=== PATIENT | male | born 1960 | race Caucasian/White ===

== ENCOUNTER 2022-07-27 16:56 | Emergency (ER) | payer OTHER, SELFPAY ==
[2022-07-27 16:57] VITALS: BP 131/116; PULSE 70; RESP 18; TEMP 35.8; O2SAT 99; BMI 40.5
[2022-07-27 17:10] VITALS: BP 131/116; PULSE 70; RESP 18; TEMP 35.8; O2SAT 99
--- NOTE | 2022-07-27 17:20 | EX.ED.DYSGE1 ---
HPI History of Present Illness Chief Complaint: General Illness Informant: patient Narrative Narrative: 61-year-old male felt compelled to have a bowel movement. He called EMS and had a bowel movement in his pants and now feels fine. Patient associates nausea and vomiting. No fevers. No abdominal distention. The patient states that he feels a spinning sensation whenever he opens his eyes. If he keeps his eyes closed its better. He notes nausea of the spinning. He denies any lightheadedness. No palpitations. PFSH PFS Medical History HTN (hypertension) Home Medications metoprolol succinate 100 mg tablet,extended release 24 hr tablet PO 11/18/21 [History Last Taken Unknown] Allergy/AdvReac Type Severity Reaction Status Date / Time No Known Allergies Allergy Verified 07/27/22 17:10 Family History Other COPD (chronic obstructive pulmonary disease) Diabetes Heart disease Surgical History Hx of arthroscopy of left knee Social History Smoking Status: Never smoker alcohol intake: never substance use type: does not use ROS ROS ED Constitutional Constitutional ED: Denies chills or weight loss Eyes Eyes: Denies change in vision or diplopia ENT ENT ED: Denies ear pain, rhinorrhea or sore throat Cardiovascular Cardiovascular: Denies chest pain, orthopnea, palpitations or racing heartbeat Respiratory/Chest Respiratory/Chest: Denies cough, dyspnea or orthopnea Gastrointestinal Gastrointestinal: Reports constipation; Denies abdominal pain, diarrhea, nausea or vomiting Genitourinary Genitourinary ED: Denies dysuria, hematuria or urinary frequency Musculoskeletal Musculoskeletal: Denies arthralgias or myalgias Integumentary Denies abscess or rash Neurologic Neurologic: Denies headache(s) or weakness Psychiatric Psychiatric: Denies anxiety, depression, suicidal ideation or suicidal thoughts Endocrine Endocrinology: Denies polydipsia, polyphagia or polyuria Allergic/Immunologic Allergic/Immunologic ED: Denies mouth swelling, tongue swelling or urticaria EXAM Physical Exam Const Vital Signs: 07/27/22 16:57 07/27/22 17:10 07/27/22 17:24 Temperature 96.5 F L 96.5 F L Temperature Source Temporal Temporal Pulse Rate 70 70 Respiratory Rate 18 18 Respiratory Effort Normal Non-Labored Blood Pressure 131/116 H 131/116 H Blood Pressure Mean 121 121 Pulse Ox 99 99 Oxygen Delivery Method Room Air Room Air 07/27/22 19:41 07/27/22 21:36 Temperature Temperature Source Pulse Rate 61 73 Respiratory Rate 18 15 Respiratory Effort Blood Pressure 179/99 H 168/102 H Blood Pressure Mean 125 Pulse Ox 98 98 Oxygen Delivery Method Room Air Positive well nourished and well developed General Appearance ED: well developed HEENT Reports normocephalic, head/scalp atraumatic and moist mucous membranes Eyes PERRL and EOMs intact bilaterally Neck no lymphadenopathy, supple and no JVD Resp normal respiratory effort and clear to auscultation bilaterally Cardio regular rate, regular rhythm and no murmurs GI normal to inspection, nondistended, normoactive bowel sounds and non-tender Palpation: soft Back/Spine no CVA tenderness and normal ROM Extremity normal to inspection General Extremety ED: Negative for edema General Extremity: Negative for edema Neuro oriented x3 and CN's II-XII intact bilaterally Sensorium / Orientation: alert Motor Exam: strength 5/5 throughout Psych mental status grossly normal Mood & Affect: Negative for depressed or tearful Skin no rashes or lesions noted and no wounds MDM MDM MDM Narrative Medical decision making narrative: Basic blood work was negative. CT of the brain negative. My interpretation of the KUB is no acute process. Patient received Valium and Zofran. COVID and influenza were ordered which were pending. The patient and his requested that they wait for their COVID and influenza at home. Clinically the patient appears quite well. I think he can be discharged home. Follow-up as needed Lab Data Attestation: I reviewed the patient's lab results. Labs: Laboratory Results - last 24 hr 07/27/22 07/27/22 16:40 16:40 WBC 11.5 H RBC 5.54 Hgb 15.6 Hct 48.0 MCV 86.6 MCH 28.2 MCHC 32.5 RDW Std Deviation 42.2 RDW Coeff of Cinda 13.3 Plt Count 213 MPV 11.1 Immature Gran % (Auto) 0.300 Neut % (Auto) 71.8 H Lymph % (Auto) 17.7 L [place] % (Auto) 8.3 Eos % (Auto) 1.3 Baso % (Auto) 0.6 Absolute Neuts (auto) 8.2 H Absolute Lymphs (auto) 2.03 Nucleated RBC % 0 Sodium 139 Potassium 4.2 Chloride 106 Carbon Dioxide 30.0 Anion Gap 3 L BUN 15 Creatinine 0.91 Estim Creat Clear Calc 83.52 Est GFR (MDRD) Af Amer 109 Est GFR (MDRD) Non-Af 90 BUN/Creatinine Ratio 16.5 Glucose 129 H Calcium 9.4 Total Bilirubin 0.20 AST 32 ALT 51 Alkaline Phosphatase 61 Total Protein 8.3 H Albumin 4.1 Globulin 4.2 Albumin/Globulin Ratio 1.0 Radiography Diagnostic Testing: Clinical Impression(s) from Imaging Studies KUB X-Ray 07/27/22 17:59 IMPRESSION: Non-obstructive bowel gas pattern. Electronically Signed: Janis Moreno MD at 18:41 EST Reading Location ID and State: Sofia Yarbrough MD Tel , Service support , Brain CT 07/27/22 20:00 IMPRESSION: Normal unenhanced CT scan of the brain. Electronically Signed: Janis Moreno MD at 20:56 EST Reading Location ID and State: Sofia Yarbrough MD Tel , Service support , Discharge Plan Triage Chief Complaint: General Illness ED Provider: Thom Joshi Dx/Rx/DC Orders Clinical Impression: Dizziness, Viral syndrome Instructions: ED Viral Syndrome (Adult) Prescriptions: No Action metoprolol succinate 100 mg tablet extended release 24 hr PO Primary Care Provider: Carlos Bazzi Referrals: Carlos Bazzi MD [Primary Care Provider] - As Needed Disposition Disposition: Home, Self Care Discharge Date/Time: 07/27/22 21:37
[2022-07-27 17:36] LABS: Absolute Lymphocyte Count 2.03 X10^3/uL (0.83-4.51); Absolute Neutrophil Count 8.2 X10^3/uL (2.0-7.7); Basophil# 0.07 X10^3/uL; Basophil% 0.6 % (0-1); Eosinophil# 0.15 X10^3/uL; Eosinophils% 1.3 % (0-5); Hemoglobin 15.6 g/dL (13.0-16.5); Lymphocyte # 2.03 X10^3/ul (0.83-4.51); Lymphocyte % 17.7 % (19-41); Mean Corp Hgb Conc 32.5 g/dL (32-36); Mean Corpuscular Hgb 28.2 pg (27.0-32.0); Mean Corpuscular Volume 86.6 fL (80-94); Mean Platelet Vol. 11.1 fl (6.2-12.0); Monocyte# 0.95 X10^3/uL; Monocyte% 8.3 % (0-10); NRBC Flagged by Analyzer 0 % (0-5); Neutrophil # 8.21 X10^3/uL (2.7-7.7); Neutrophil % 71.8 % (47-70); Platelet Count 213 K/mm3 (150-450); RBC Distribution Width CV 13.3 % (11.6-14.6); RBC Distribution Width SD 42.2 fl (35.1-43.9); Red Blood Count 5.54 M/mm3 (4.6-6.2); White Blood Count 11.5 K/mm3 (4.4-11.0)
[2022-07-27 17:52] LABS: AST(SGOT) 32 U/L (15-37); Alanine Aminotransfer ALT/SGPT 51 U/L (16-61); Albumin, Serum 4.1 g/dL (3.2-5.0); Alkaline Phosphatase 61 U/L (45-117); Anion Gap 3 (5-15); BUN 15 mg/dL (7-18); BUN/Creat Ratio 16.5 RATIO (10-20); Calcium,Total 9.4 mg/dL (8.5-10.1); Chloride 106 mmol/L (98-107); Creatinine, Serum 0.91 mg/dL (0.70-1.30); EST Glomerular Filtration Rate 90 mL/min (>60); Est Glom Filt Rate - Afr Amer 109 mL/min (>60); Estimated Creatinine Clearance 83.52 ml/min; Globulin 4.2 g/dL (2.2-4.2); Glucose 129 mg/dL (74-106); Potassium 4.2 mmol/L (3.5-5.1); Protein, Total 8.3 g/dL (6.4-8.2); Sodium Level 139 mmol/L (136-145)
--- NOTE | 2022-07-27 17:59 | RAD_ITS ---
INDICATION: ABDOMINAL PAIN EXAMINATION/TECHNIQUE: X-RAY - XR Abdomen 1 View COMPARISON: FINDINGS: Lung bases are clear. There is a non-obstructive bowel gas pattern. There is no organomegaly. No abnormal calcifications. Soft tissues and bony structures are unremarkable. RAD/Abdomen Single View IMPRESSION: Non-obstructive bowel gas pattern. Electronically Signed: Janis Moreno MD at 18:41 EST Reading Location ID and State: [id number] / Tel , Service support ,
[2022-07-27 19:41] VITALS: BP 179/99; PULSE 61; RESP 18; O2SAT 98
--- NOTE | 2022-07-27 20:00 | CT_ITS ---
STUDY: CT BRAIN WITHOUT CONTRAST REASON FOR EXAM: Male, 61 years old. vertigo RADIATION DOSAGE (If Supplied By Facility): CTDIvol = ( 44.99 ) mGy, DLP = ( 832.67 ) mGycm TECHNIQUE: Transaxial CT imaging of the brain was performed without administration of intravenous contrast material. Individualized dose optimization techniques were used for this CT. COMPARISON: No relevant priors. FINDINGS: Normal soft tissue structures. Normal calvarium. Normal size ventricles and extra-axial spaces for the patient''s age. Normal white matter tracts of the cerebral hemispheres. Normal basal ganglia and thalami. Normal brainstem. Normal cerebellum. There is no intracranial hemorrhage. There are no findings of an acute ischemic infarction. Normal visualized paranasal sinuses. CT/Brain/Head without Contrast IMPRESSION: Normal unenhanced CT scan of the brain. Electronically Signed: Janis Moreno MD at 20:56 EST Reading Location ID and State: [id number] / Tel , Service support ,
[2022-07-27] MEDS: diazePAM 5 MG Tablet PO (20:05)
[2022-07-27] MEDS: Ondansetron 4 MG/2 ML Vial IV (20:05)
[2022-07-27 21:36] VITALS: BP 168/102; PULSE 73; RESP 15; O2SAT 98
== END 2022-07-27 21:37 | disposition home or self-care (01) ==
PROVIDERS: Emergency Provider Emergency Medicine; PCP Family Medicine; Visit Provider Emergency Medicine
DX: B34.9 Viral infection, unspecified (principal); I10 Essential (primary) hypertension; R42 Dizziness and giddiness; R11.0 Nausea
CPT/HCPCS: 70450; 74018; 80053; 85025; 87428; 96374; 99285; A4216; J2405

== ENCOUNTER → 2024-12-08 | Outpatient (CLI) | payer OTHER, SELFPAY ==
--- NOTE | 2024-12-08 10:00 | CT_ITS ---
PROCEDURE: EXTREMITY LOWER WITHOUT CONTRA 12/08/2024 REASON FOR EXAM: TEMPLATING FOR LEFT TKA TECHNIQUE: Axial CT images of the x-ray earlier today obtained with intravenous contrast. Coronal and Sagittal reconstruction series were provided. Multiple thin-section axial CT images of the left hip, left knee, and left ankle were obtained and filmed in bone windows and reconstructions were performed. One or more dose reduction techniques were used (e.g., Automated exposure control, adjustment of the mA and/or kV according to patient size, use of iterative reconstruction technique). FINDINGS: Bones: No acute fracture or dislocation. No lytic or blastic lesions. Joints: Moderate joint space narrowing of the hip joint consistent with moderate arthrosis. Status post anterior cruciate ligament reconstruction with surgical anchors. Severe joint space narrowing, osteophyte formation, and subchondral sclerosis of the medial compartment of the knee joint consistent with severe arthrosis. Moderate joint space narrowing and osteophyte formation of the lateral compartment consistent with moderate arthrosis. Mild joint space narrowing and osteophyte formation of the patellofemoral compartment consistent with mild arthrosis. Soft Tissues: No abnormal soft tissue mass, lymphadenopathy, or fluid collection. CT/Extremity Lower without Contra IMPRESSION: Status post anterior cruciate ligament reconstruction. Severe arthrosis. Reading Location: [facility]
--- NOTE | 2024-12-08 10:00 | RAD_ITS ---
EXAM: XR Left Knee Complete, 4 or More Views CLINICAL INDICATION: PAIN, UPCOMING SURGERY TECHNIQUE: Four or more views of the left knee. COMPARISON: No relevant prior studies available. FINDINGS: BONES/JOINTS: Evidence of prior ligamentous repair. Intact hardware. Anatomic position. Moderate degenerative changes of the medial compartment of the knee joint. No acute fracture. No dislocation. SOFT TISSUES: Mild soft tissue swelling. RAD/Knee 4 or More Views IMPRESSION: 1. Degenerative changes as above. 2. Postoperative changes as above. Reading Location: [id number]
== END | disposition home or self-care (01) ==
LOC: CT 09:58
PROVIDERS: PCP Family Medicine; Referring Provider Orthopaedic Surgery; Visit Provider Orthopaedic Surgery
DX: M17.12 Unilateral primary osteoarthritis, left knee (principal)
CPT/HCPCS: 73564; 73700

== ENCOUNTER 2025-01-15 05:37 | Day surgery (SDC) | payer OTHER, SELFPAY ==
--- NOTE | 2024-12-27 17:35 | PAT.ANESEVAL ---
Pre-Assessment Diagnosis/Proposed Procedure Planned Operative Procedure(s): (L) Left Total Knee Replacement Robotic Arm Assisted with hardware removal Anesthesia History Anesthesia History - certified diabetes educator: Anesthesia History - certified diabetes educator Hx Hospitalization No 12/24/24 09:05 Any Problems With Anesthesia No 12/24/24 09:05 Cholinesterase deficiency No 12/24/24 09:05 You/Your Family Experience No 12/24/24 09:05 fever (hyperthermia) with Relationship Recent Exposure to Contagious Disease Does patient have nerve No 12/24/24 09:05 stimulator Patient instructed to have device shut off --Does patient have Pacemaker or ICD? When Was Last Pacemaker Check QUESTION #4 FULL TEXT: You/Your Family Experience fever (hyperthermia) with Anesthesia Last Oral Intake Last Oral intake: Last Oral Intake NPO since Meds taken in AM with sips of water? Meds patient instructed to take am of surgery PONV PONV - certified diabetes educator: PONV - certified diabetes educator Female No 12/24/24 09:05 HX of Motion Sickness No 12/24/24 09:05 HX of N/V After Surgery No 12/24/24 09:05 Non-Smoker Yes 12/24/24 09:05 Duration of Surgery greater Yes 12/24/24 09:05 than 60 minutes Number of Risk Factors 2 12/24/24 09:05 PONV Score Moderate Risk 12/24/24 09:05 Height & Weight Height & Weight: Anesthesia: Height & Weight Height 5 ft 8 in 10/29/24 15:05 Respiratory Assessment Respiratory Assessment - certified diabetes educator: Respiratory Tract Infection Hx - certified diabetes educator Hx Respiratory Tract Infection No 12/24/24 09:05 STOP Sleep Apnea STOP Sleep Apnea - certified diabetes educator: STOP Sleep Apnea - certified diabetes educator Hx Hypertension Yes 12/24/24 09:05 Hx Sleep Apnea Yes 12/24/24 09:05 CPAP Yes: non compliant 12/24/24 09:05 BIPAP No 12/24/24 09:05 Do you snore loudly (louder than talking or can be heard Do you often feel tired/ fatigued/ sleepy during daytime? Has anyone observed you stop breathing during sleep? STOP Results Positive 12/24/24 09:05 QUESTION #5 FULL TEXT : Do you snore loudly (louder than talking or can be heard through closed doors)? 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 Specify any problems Hx of Preganancy in last 3 N/A 12/24/24 09:05 Months Nurse Filling Out Transfusion JZOLLINGE 12/24/24 09:05 & Questions: Date: 12/24/24 12/24/24 09:05 Time: 09:13 12/24/24 09:05 Patient unable to answer at this time (ie. confused, unrespo /Reproduction History /Reproductive History - certified diabetes educator: /Reproductive Hx- certified diabetes educator Hx Now No 12/24/24 09:05 Gestational Age (in weeks): EDC: Hx Hx Para Hx Section SAB No 12/24/24 09:05 PFSH Medical History Hx of electrocardiogram Hx of cardiovascular stress test Hx of echocardiogram History of Holter monitoring Wears glasses Hx of psoriasis High cholesterol Former smoker Sleep apnea Shortness of breath on exertion HTN (hypertension) Home Medications ?Medication ?Instructions ?Recorded ?Last Taken ?Type metoprolol succinate 100 mg 50 mg PO .hs 11/18/21 Unknown History tablet,extended release 24 hr ezetimibe 10 mg tablet 10 mg PO QDAY 10/29/24 Unknown History hydroxyzine HCl 10 mg tablet 10 mg PO QHS PRN insomnia 10/29/24 Unknown History amlodipine 10 mg tablet 10 mg PO .q am 12/24/24 Unknown History cholecalciferol (vitamin D3) 50 2,000 unit PO DAILY 12/24/24 Unknown History mcg (2,000 unit) tablet (D3 DOTS) cyanocobalamin (vitamin B-12) 500 500 mcg PO DAILY 12/24/24 Unknown History mcg tablet (B-12 DOTS) testosterone 100 mg implant pellet 100 mg subcut ONCE 12/26/24 Unknown History Allergy/AdvReac Type Severity Reaction Status Date / Time No Known Allergies Allergy Verified 12/26/24 14:43 Family History Other COPD (chronic obstructive pulmonary disease) Diabetes Heart disease Surgical History Hx of colonoscopy Hx of arthroscopy of left knee Social History Smoking Status: Former smoker alcohol intake: never substance use type: does not use Prior Cardiac Testing/Procedures Prior Cardiac Testing/Procedures: Echocardiogram (EF 60-65%) and Stress Test (10/02/24 Negative profusion scan) Addt'l Information Additional Findings: EKG NSR. >4 METS Recommendation Anesthesia Recommendation Anesthesia recommendation: OPTIMIZED for anesthesia
[2025-01-08 13:51] LABS: Absolute Lymphocyte Count 1.64 X10^3/uL (0.83-4.51); Absolute Neutrophil Count 3.1 X10^3/uL (2.0-7.7); Basophil# 0.05 X10^3/uL; Basophil% 0.9 % (0-1); Eosinophil# 0.17 X10^3/uL; Hematocrit 44.8 % (40-54); Hemoglobin 14.6 g/dL (13.0-16.5); Lymphocyte # 1.64 X10^3/ul (0.83-4.51); Lymphocyte % 28.9 % (19-41); Mean Corp Hgb Conc 32.6 g/dL (32-36); Mean Corpuscular Hgb 29.1 pg (27.0-32.0); Mean Corpuscular Volume 89.2 fL (80-94); Monocyte# 0.67 X10^3/uL; Monocyte% 11.8 % (0-10); NRBC Flagged by Analyzer 0 % (0-5); Neutrophil # 3.14 X10^3/uL (2.7-7.7); Neutrophil % 55.2 % (47-70); Platelet Count 194 K/mm3 (150-450); RBC Distribution Width CV 14.2 % (11.6-14.6); RBC Distribution Width SD 45.4 fl (35.1-43.9); Red Blood Count 5.02 M/mm3 (4.6-6.2); White Blood Count 5.7 K/mm3 (4.4-11.0)
[2025-01-08 14:01] LABS: Partial Thromboplast Time 26.8 Seconds (24.1-36.2); Prothrombin Time (Protime)PT. 13.2 SECONDS (11.7-14.9)
[2025-01-08 14:38] LABS: Anion Gap 11 (5-15); BUN 13 mg/dL (4-19); BUN/Creat Ratio 15.5 RATIO (10-20); Calcium,Total 9.2 mg/dL (7.6-11.0); Carbon Dioxide 23.4 mmol/L (21.0-32.0); Chloride 104 mmol/L (98-108); Creatinine, Serum 0.86 mg/dL (0.70-1.20); EST Glomerular Filtration Rate 97 (>60); Glucose 118 mg/dL (70-99); Potassium 4.3 mmol/L (3.3-5.1); Sodium Level 138 mmol/L (133-145)
[2025-01-08 19:34] LABS: Magnesium 1.9 mg/dL (1.5-2.2)
[2025-01-10 05:07] LABS: Fructosamine 215 umol/L (0-285)
[2025-01-15] VITALS (11 sets, daily range): BP systolic 100–148; BP diastolic 67–94; PULSE 58–85; RESP 16–18; TEMP 36.3–36.4; O2SAT 92–100; BMI 39.5
--- OUTSIDE RECORDS SUMMARY | 2025-01-15 05:41 | XMS RPT_ITS | CCD ---
Author Organization [facility] Care Team Providers Care Home Energy Consultant Supervisor Name Role Phone Rose Mary, Carlos Unavailable Unavailable Rose Mary, Carlos Unavailable Unavailable Salida, Conchis D Unavailable Unavailable Kurtis, Nadege L Unavailable Unavailable Kurtis, Nadege L Unavailable Unavailable Sal[place], Conchis D Unavailable Unavailable Rose Mary, Carlos Unavailable Unavailable Rose Mary, Carlos Unavailable Unavailable Sal[place], Conchis D Unavailable Unavailable Rose Mary, Carlos Unavailable Unavailable Sal[place], Conchis D Unavailable Unavailable Rose Mary, Carlos Unavailable Unavailable Sal[place], Conchis D Unavailable Unavailable Rose Mary, Carlos Unavailable Unavailable Sal[place], Conchis D Unavailable Unavailable Unavailable Unavailable Unavailable Rose Mary, Carlos L Unavailable Unavailable Unavailable Dr. Carlos Bazzi Primary Care Provider [phone] [address]. Omer Wilson Attending Provider LEYDI GREGORY Attending Unavailable LEYDI GREGORY Referring Unavailable Rose Mary, Carlos Primary Care Unavailable Rose Mary, Carlos Attending Unavailable Rose Mary, Carlos Referring Unavailable Rose Mary, Carlos Primary Care Unavailable Rose Mary, Carlos Referring Unavailable Rose Mary, Carlos Primary Care Unavailable Rose Mary, Carlos Attending Unavailable Rose Mary, Carlos Primary Care Unavailable STENTZ, Mr. BREWER Attending Unavailable STENTZ, Mr. BREWER Referring Unavailable Stentz, Osman Unavailable Stentz, Mr. Brewer Attending Unavailable Stentz, Mr. Brewer Primary Care Unavailable Stentz PA-CJohnniein Primary Care Provider STENTZ, OSMAN Primary Care Unavailable Stentz PA-C, Osman Primary Care Provider Stentz PA-C Osman Primary Care Provider STENTZ, OSMAN Referring Unavailable STENTZ, OSMAN Primary Care Unavailable RABAGO CAITLYN, OLU ALKA Referring Unava ilable STENTZ, OSMAN Primary Care Unavailable RABAGO CAITLYN, OLU ALKA Referring Unava ilable STENTZ, OSMAN Primary Care Unavailable RABAGO CAITLYN, OLU ALKA Referring Unava ilable STENTZ, OSMAN Primary Care Unavailable STENTZ, SOMAN Referring Unavailable STENTZ, OSMAN Primary Care Unavailable Rose Mary QUEEN, Dr. Gonzalez Primary Care Provider Dr. Carlos Bazzi MD Referring Provider Dr. Shan Jaeger DO Attending Provider Dr. Shan Jaeger DO Referring Provider Sarai Vargas Attending Provider Stentz PAOsman Primary Care Provider STENTZ, OSMAN Attending Unavailable STENTZ, OSMAN Primary Care Unavailable RABAGO CAITLYN, OLU ALKA Attending Unava ilable STENTZ, OSMAN Referring Unavailable STENTZ, OSMAN Primary Care Unavailable RABAGO CAITLYN, OLU ALKA Attending Unava ilable STENTZ, OSMAN Primary Care Unavailable STENTZ, OSMAN Attending Unavailable STENTZ, OSMAN Referring Unavailable STENTZ, OSMAN Primary Care Unavailable STENTZ, OSMAN Attending Unavailable STENTZ, OSMAN Referring Unavailable STENTZ, OSMAN Primary Care Unavailable Shan Jaeger Attending Unavailable Shan Jaeger Referring Unavailable Stentz, Osman Primary Care Unavailable Shan Jaeger Attending Unavailable Shan Jaeger Referring Unavailable Rose Mary, Carlos Primary Care Unavailable Shan Jaeger Attending Unavailable Shan Jaeger Referring Unavailable Rose Mary, Carlos Primary Care Unavailable Shan Jaeger Attending Unavailable Rose Mary, Carlos Referring Unavailable Rose Mary, Carlos Primary Care Unavailable Stentz, Osman Primary Care Unavailable Rose Mary, Carlos Referring Unavailable Sarai Shah Attending Unavailable Allergies Allergy Classification Reported Allergen(s) Allergy Type Date of Onset Reaction(s) Facility (16 sources) atorvastatin; Translations: [Lipitor] Drug Allergy A[facility], Myalgia [facility] Repository (16 sources) Simvastatin; Translations: [Zocor] Drug Allergy [facility], [facility] Repository (20 sources) atorvastatin; Translations: [ATORVASTATIN] Drug Allergy 09-17-2022 Other [facility] (20 sources) Simvastatin; Translations: [SIMVASTATIN] Drug Allergy 09-17-2022 Other [facility] Work Phone: Medications Current Medications Medication Drug Class(es) Dates Sig (Normalized) Sig (Original) [id number] 200 actuat albuterol 0.09 mg/actuat metered dose inhaler (17 sources) beta2-Adrenergic Agonist Start: 11-25-2023 End: 12-14-2025 take 2 puff(s) by inhalation every six hours for wheezing albuterol (Ventolin HFA) 90 mcg/actuation inhaler Indications: SOB (shortness of breath) Inhale 2 puffs every 6 hours if needed for wheezing. 18 g 11 12/14/2024 12/14/2025 Active Start: 10-29-2022 End: 10-29-2023 take 2 puff(s) by inhalation every six hours for wheezing albuterol (Ventolin HFA) 90 mcg/actuation inhaler Indications: SOB (shortness of breath) Inhale 2 puffs every 6 hours if needed for wheezing. 18 g 11 10/29/2022 10/29/2023 Active amLODIPine 10 mg oral tablet (2 sources) Dihydropyridine Calcium Channel Carline Start: 12-14-2024 End: 02-12-2025 take 1 tablet by mouth once in the morning Amlodipine 10 mg tablet Active 10 mg PO .q am December 24, 2024 12:00am amoxicillin 875 mg / clavulanate 125 mg oral tablet (2 sources) Penicillin-class Antibacterial Start: 10-21-2022 End: 10-31-2022 take 1 tablet by mouth in the morning amoxicillin-pot clavulanate (Augmentin) 875-125 mg tablet Indications: Upper respiratory tract infection, unspecified type Take 1 tablet (875 mg) by mouth in the morning and 1 tablet (875 mg) before bedtime. Do all this for 10 days. 20 tablet 0 10/21/2022 10/31/2022 Active cholecalciferol 0.05 mg oral tablet (13 sources) Vitamin D Start: 12-24-2024 Cholecalciferol (Vitamin D3) (D3 Dots) 50 mcg (2,000 unit) tablet Active 2000 U PO DAILY December 24, 2024 12:00am take 1 capsule by mouth once buck ly cholecalciferol (Vitamin D-3) 25 MCG (1000 UT) capsule Indications: vitamin D deficiency Take 1 capsule (25 mcg) by mouth once daily. Active ezetimibe 10 mg oral tablet (13 sources) Dietary Cholesterol Absorption Inhibitor Start: 08-31-2024 End: 08-31-2025 take 1 tablet by mouth once daily Ezetimibe 10 mg tablet Active 10 mg PO daily October 29, 2024 12:00am hydrOXYzine hydrochloride 10 mg oral tablet (6 sources) Antihistamine Start: 10-08-2024 End: 03-14-2025 hydrOXYzine HCL (Atarax) 10 mg tablet Indications: Primary insomnia Take 1 tablet (10 mg) by mouth as needed at bedtime (sleep). 30 tablet 2 12/14/2024 03/14/2025 Active methylPREDNISolone (3 sources) Corticosteroid Start: 10-06-2024 End: 10-12-2024 methylPREDNISolone (Medrol Dospak) 4 mg tablets Indications: Upper respiratory tract infection, unspecified type Take as directed on package. 21 tablet 10/06/2024 10/12/2024 Active metoprolol tartrate 100 mg oral tablet (20 sources) beta-Adrenergic Carline Start: 11-29-2024 End: 11-29-2025 take 0.5 tablet by mouth twice daily metoprolol tartrate (Lopressor) 100 mg tablet Indications: Hypertension, unspecified type Take 0.5 tablets (50 mg) by mouth 2 times a day. 90 tablet 1 11/29/2024 11/29/2025 Active Start: 04-06-2024 End: 04-06-2025 take 0.5 tablet by mouth once daily at bedtime metoprolol tartrate (Lopressor) 100 mg tablet Indications: Hypertension, unspecified type Take 0.5 tablets (50 mg) by mouth once daily at bedtime. 90 tablet 3 04/06/2024 04/06/2025 Active Start: 02-06-2024 End: 04-06-2024 take 1 tablet by mouth twice daily metoprolol tartrate (Lopressor) 100 mg tablet Indications: Hypertension, unspecified type Take 1 tablet (100 mg) by mouth 2 times a day. 180 tablet 02/06/2024 04/06/2024 Discontinued (Reorder) Start: 11-18-2021 take 2 tablets by mo [facility] every twenty-four hours at bedtime Metoprolol Succinate 100 mg tablet extended release 24 hr Active 50 mg PO .hs November 18, 2021 12:00am Start: 11-18-2021 take 1 tablet by deysi every twenty-four hours Metoprolol Succinate 100 mg tablet extended release 24 hr Active NMA PO November 18, 2021 12:00am Start: 07-20-2019 Metoprolol Suc cinate Active TAB PO November 17, 2021 11:00pm predniSONE 50 mg oral tablet (1 source) Start: 10-25-2022 End: 10-30-2022 take 1 tablet by mouth once daily predniSONE (Deltasone) 50 mg tablet Indications: Upper respiratory tract infection, unspecified type Take 1 tablet (50 mg) by mouth once daily for 5 days. 5 tablet 0 10/25/2022 10/30/2022 Active promethazine hydrochloride 12.5 mg oral tablet (1 source) Phenothiazine Start: 11-10-2022 End: 01-28-2023 promethazine (Phenergan) 12.5 mg tablet Indications: Nausea 1-2 tablets 4 times a day as needed for nause 30 tablet 0 11/10/2022 01/28/2023 Discontinued (Other) testosterone 100 mg drug implant (1 source) Androgen Start: 12-26-2024 Testosterone 1 00 mg pellet Active 100 mg SC ONCE December 26, 2024 12:00am as a single dose vitamin B12 (13 sources) Vitamin B12 Start: 12-24-2024 take 1 tablet by mouth once daily Cyanocobalamin (Vitamin B-12) (B-12 Dots) 500 mcg tablet Active 500 ug PO DAILY December 24, 2024 12:00am take 1 tablet by mouth once bruce y cyanocobalamin (Vitamin B-12) 100 mcg tablet Take 1 tablet (100 mcg) by mouth once daily. OTC Active Completed/Discontinued Medications Medication Drug Class(es) Dates Sig (Normalized) Sig (Original) amoxicillin 500 mg oral capsule (3 sources) Penicillin-class Antibacterial Start: 01-12-2022 take 2 capsules by mouth twice daily Amoxicillin 500 MG Oral Capsule TAKE 2 CAPSULE Twice daily Quantity: 40 Refills: 0 Ordered: 12-Jan-2022 Carlos Bazzi MD Start : 12-Jan-2022 Active ascorbic acid 500 mg oral capsule (17 sources) Vitamin C End: 12-14-2024 take 1 tablet by mouth once daily ascorbic acid, vitamin C, 500 mg capsule Take 1 tablet by mouth 1 (one) time each day. 12/14/2024 Discontinued (Med List Cleanup) azithromycin 250 mg oral tablet (10 sources) Macrolide Antimicrobial Start: 10-06-2024 End: 12-14-2024 azithromycin (Zithromax) 250 mg tablet Indications: Upper respiratory tract infection, unspecified type Take 2 tabs (500 mg) by mouth today, then take 1 tab daily for 4 days. 6 tablet 10/06/2024 12/14/2024 Discontinued (Med List Cleanup) Start: 09-10-2021 Azithromycin 2 50 MG Oral Tablet TAKE 2 TABLETS ON DAY 1 THEN TAKE 1 TABLET A DAY FOR 4 DAYS. Quantity: 1 Refills: 1 Ordered: 10-Sep-2021 Carlos Bazzi MD Start : 10-Sep-2021 Active Start: 08-17-2021 Azithromycin 2 50 MG Oral Tablet TAKE 2 TABLETS ON DAY 1 THEN TAKE 1 TABLET A DAY FOR 4 DAYS. Quantity: 1 Refills: 0 Ordered: 17-Aug-2021 Nehemiah Ashton MD Start : 17-Aug-2021 Active dexamethasone 6 mg oral tablet (6 sources) Corticosteroid Start: 09-01-2021 take 1 tablet by mouth once daily Dexamethasone 6 MG Oral Tablet Take 1 tablet daily Quantity: 7 Refills: 0 Ordered: 01-Sep-2021 Carlos Bazzi MD Start : 01-Sep-2021 Active 1 ml evolocumab 140 mg/ml auto-injector (10 sources) PCSK9 Inhibitor Start: 09-17-2024 End: 10-17-2024 inject 1 mL by subcutaneous injection once evolocumab (Repatha SureClick) 140 mg/mL injection Indications: Atherosclerosis Inject 1 mL (140 mg) under the skin every 14 (fourteen) days. 2 mL 09/17/2024 10/08/2024 Discontinued (Med List Cleanup) Fish Oil CAPS (14 sources) Fish Oil CAPS Ta ke one tablet once daily Quantity: 0 Refills: 0 Ordered: 01-Sep-2021 DO Active Fish Oil CAPS Qu antity: 0 Refills: 0 Ordered: 22-Jun-2021 DO Active losartan potassium 50 mg oral tablet (6 sources) Angiotensin 2 Receptor Carline Start: 08-31-2022 End: 04-06-2024 take 1 tablet by mouth once daily losartan (Cozaar) 50 mg tablet Indications: Hypertension, unspecified type Take 1 tablet (50 mg) by mouth once daily. 90 tablet 3 10/29/2022 04/06/2024 Discontinued (Med List Cleanup) perflutren lipid microspheres (Definity) injection 2 mL of dilution (1 source) Start: 09-24-2024 End: 09-24-2024 2 mL of dilution, intravenous, Once in imaging, Starting on Tue09/24/24 at 1139, For 1 dose, Contrast - for use by imaging provider only. Prior to administration, Definity product must be activated. First, bring vial to room temperature. Then, shake vial for 45 seconds. Do not use if the 45 second activation cycle has not been completed. Following activation, the product will appear as a milky white suspension and may be used immediately. If not used within 5 minutes of activation, re-suspend by inverting and shaking the vial for 10 seconds. Discard unused product. Administration: Dilute 1.3 mL of activated DEFINITY with 8.7 mL of normal saline in a 10 mL syringe. Inject 0.5 mL of diluted DEFINITY when notified the images/film are unclear to enhance view of Left Ventricular borders. Repeat 0.5 mL of DEFINITY until clear images are obtained, not to exceed 10 mLs. Once images are obtained or limit of medication is reached, flush line with 10 mL of Normal Saline. regadenoson (Lexiscan) injection 0.4 mg (2 sources) Start: 09-24-2024 End: 09-24-2024 regadenoson (Lexiscan) injection 0.4 mg Start: 09-24-2024 End: 09-24-2024 0.4 mg, intravenous, Once, O n 09/24/24 at 1115, For 1 dose semaglutide 0.25 mg or 0.5 mg (2 mg/3 mL) pen injector (2 sources) Start: 01-28-2023 End: 04-06-2024 inject 0.25 mg by subcutaneous injection every week, then inject 0.5 mg by subcutaneous injection every week, then inject 1 mg by subcutaneous injection every week, then inject 1.75 mg by subcutaneous injection every week, then inject 2 mg by subcutaneous injection every week semaglutide 0.25 mg or 0.5 mg (2 mg/3 mL) pen injector Indications: Prediabetes Inject 0.25 mg under the skin 1 (one) time per week for 30 days, THEN 0.5 mg 1 (one) time per week for 30 days, THEN 1 mg 1 (one) time per week for 30 days, THEN 1.75 mg 1 (one) time per week for 30 days, THEN 2 mg 1 (one) time per week. 3 mL 01/28/2023 04/06/2024 Discontinued (Med List Cleanup) Start: 01-28-2023 End: 06-27-2023 inject 0.25 mg by subcutaneous injection every week, then inject 0.5 mg by subcutaneous injection every week, then inject 1 mg by subcutaneous injection every week, then inject 1.75 mg by subcutaneous injection every week, then inject 2 mg by subcutaneous injection every week semaglutide 0.25 mg or 0.5 mg (2 mg/3 mL) pen injector Indications: Prediabetes Inject 0.25 mg under the skin 1 (one) time per week for 30 days, THEN 0.5 mg 1 (one) time per week for 30 days, THEN 1 mg 1 (one) time per week for 30 days, THEN 1.75 mg 1 (one) time per week for 30 days, THEN 2 mg 1 (one) time per week. 3 mL 01/28/2023 06/27/2023 Active Tc-99m tetrofosmin (Myoview) injection 10.8 millicurie (1 source) Start: 09-24-2024 End: 09-24-2024 10.8 millicurie, intravenous , Once in imaging, Starting on Tue09/24/24 at 0904, For 1 dose, Administer 45 to 90 minutes prior to imaging unless otherwise indicated. Tc-99m tetrofosmin (Myoview) injection 34 millicurie (1 source) Start: 09-24-2024 End: 09-24-2024 34 millicurie, intravenous, Once in imaging, Starting on Tue09/24/24 at 1017, For 1 dose, Administer 45 to 90 minutes prior to imaging unless otherwise indicated. Unspecified Medication (4 sources) Start: 06-14-2022 Unspecified Me dication stroke screening Quantity: 1 Refills: 0 Ordered: 14-Jun-2022 Carlos Bazzi MD Start : 14-Jun-2022 Active Vitamin C CAPS (15 sources) Vitamin C CAPS T padmini one tablet once daily Quantity: 0 Refills: 0 Ordered: 01-Sep-2021 DO Active Vitamin C CAPS Q uantity: 0 Refills: 0 Ordered: 22-Jun-2021 DO Active Problems Active Problems Problem Classification Problem Date Documented Date Episodic/Chronic Conditions associated with dizziness or vertigo (3 sources) Dizziness; Translations: [Dizziness and giddiness] 08-04-2022 Episodic Coronary atherosclerosis and other heart disease (8 sources) Calcification of coronary artery 08-31-2024 Chronic Disorders of lipid metabolism (20 sources) Hyperlipidemia; Translations: [Other and unspecified hyperlipidemia] Onset: 09-17-2022 09-17-2022 Chronic Essential hypertension (20 sources) Hypertensive disorder; Translations: [Unspecified essential hypertension] Onset: 09-17-2022 01-28-2023 Chronic Miscellaneous mental health disorders (4 sources) Primary insomnia; Translations: [Primary insomnia] Onset: 10-08-2024 10-08-2024 Chronic Nutritional deficiencies (3 sources) Vitamin D deficiency; Translations: [Vitamin D deficiency, unspecified] Onset: 10-08-2024 10-08-2024 Chronic Nutritional deficiencies (3 sources) Cobalamin deficiency; Translations: [Deficiency of other specified B group vitamins] Onset: 10-08-2024 10-08-2024 Episodic Osteoarthritis (6 sources) Osteoarthritis of left knee joint; Translations: [Unilateral primary osteoarthritis, left knee] Onset: 12-12-2024 10-29-2024 Chronic Other lower respiratory disease (1 source) Dyspnea on exertion; Translations: [Shortness of breath] Episodic Other lower respiratory disease (20 sources) Dyspnea; Translations: [Shortness of breath] Onset: 09-17-2022 09-17-2022 Episodic Other non-traumatic joint disorders (3 sources) Pain in left knee; Translations: [Left knee pain] 11-18-2021 Episodic Other nutritional; endocrine; and metabolic disorders (12 sources) Obesity; Translations: [Obesity, unspecified] Onset: 09-17-2022 09-17-2022 Chronic Other nutritional; endocrine; and metabolic disorders (17 sources) Severe obesity; Translations: [Morbid obesity] Onset: 09-17-2022 09-17-2022 Chronic Other nutritional; endocrine; and metabolic disorders (2 sources) Body mass index (BMI) 38.0-38.9, adult; Translations: [Body mass index (BMI) 38.0-38.9, adult] Onset: 09-17-2022 Chronic Other nutritional; endocrine; and metabolic disorders (2 sources) Morbid (severe) obesity due to excess calories; Translations: [Morbid (severe) obesity due to excess calories (Multi)] Onset: 09-17-2022 Chronic Other upper respiratory infections (20 sources) Acute sinusitis; Translations: [Acute sinusitis, unspecified] Onset: 09-17-2022 Episodic Peripheral and visceral atherosclerosis (3 sources) Arteriosclerotic vascular disease; Translations: [Unspecified atherosclerosis] Onset: 10-08-2024 10-08-2024 Chronic Residual codes; unclassified (20 sources) Obstructive sleep apnea syndrome; Translations: [Obstructive sleep apnea (adult)(pediatric)] Onset: 09-17-2022 09-17-2022 Chronic Residual codes; unclassified (2 sources) Obstructive sleep apnea (adult) (pediatric); Translations: [Obstructive sleep apnea (adult) (pediatric)] Onset: 09-17-2022 Chronic Residual codes; unclassified (3 sources) Other general symptoms and signs; Translations: [Other general symptoms] Onset: 12-14-2024 12-14-2024 Episodic Unclassified (1 source) Cough, unspecified; Translations: [Cough, unspecified] Onset: 11-04-2022 Unclassified (1 source) Obesity, class 2; Translations: [Obesity, class 2] Onset: 09-17-2022 Viral infection (20 sources) Disease caused by 2019-nCoV; Translations: [Other specified viral infection] Onset: 09-17-2022 Resolved: 09-17-2022 09-17-2022 Episodic Past or Other Problems Problem Classification Problem Date Documented Da te Episodic/Chronic Diabetes mellitus without complication (20 sources) Prediabetes; Translations: [Prediabetes] Onset: 01-28-2023 01-28-2023 Episodic Joint disorders and dislocations; trauma-related (20 sources) Tear of meniscus of knee; Translations: [Other tear of cartilage or meniscus of knee, current] Onset: 09-17-2022 09-17-2022 Episodic Malaise and fatigue (6 sources) Other fatigue; Translations: [Fatigue] Onset: 04-06-2024 Episodic Other gastrointestinal disorders (20 sources) Stool DNA-based colorectal cancer screening positive; Translations: [Abnormal feces] Onset: 09-17-2022 Resolved: 09-30-2021 09-17-2022 Episodic Other lower respiratory disease (3 sources) Shortness of breath; Translations: [Shortness of breath] Onset: 09-17-2022 Episodic Other non-traumatic joint disorders (18 sources) Joint pain; Translations: [Pain in unspecified joint] Onset: 01-28-2023 01-28-2023 Episodic Other non-traumatic joint disorders (2 sources) Pain in unspecified joint; Translations: [Pain in unspecified joint] Onset: 01-28-2023 Episodic Other screening for suspected conditions (not mental disorders or infectious disease) (20 sources) Patient encounter status; Translations: [Screening for malignant neoplasms of prostate] Onset: 04-06-2024 Episodic Unclassified (17 sources) Onset: 01-28-2023 Resolved: 12-14-2024 01-28-2023 Unclassified (1 source) Obesity, class 2; Translations: [Obesity, class 2] Onset: 08-31-2024 Results Test Name Value Interpretation Reference Range Facility Fructosamineon 01-10-2025 FRUCTOSAMINE 215 umol/L Normal 0-285 [facility] Comment on above: Result Comment: Publ ished reference interval for apparently healthy subjects between age 20 and 60 is 205 - 285 umol/L and in a poorly controlled diabetic population is 228 - 563 umol/L with a mean of 396 umol/L. Performed at: [address] [id number] Procurement Buyer: Miguel Miller PhD, Phone: [phone] Performed By: #### L 100.0100, L300.4310, L500.2500, L501.9985, L3400.0100, L300.3900, M100.651, BTSPAT ####[facility] [id number] [place], [place], [phone] MRSA/SAID NASAL SCREENon MRSA+SAID SCRN Reason for Exam: pre op MRSA MRSA Negative S. AUREUS S. aureus Negative Normal [facility] Comment on above: Performed By: #### L 100.0100, L300.4310, L500.2500, L501.9985, L3400.0100, L300.3900, M100.651, BTSPAT #### [facility] [address] [place], [place], [id number] Basic Metabolic Profile (BMP )on 01-08-2025 BUN/CRE 15.5 RATIO Normal 10-20 [facility] Comment on above: Performed By: #### L 100.0100, L300.4310, L500.2500, L501.9985, L3400.0100, L300.3900, M100.651, BTSPAT #### [facility] [address] [place], [place], [id number] [phone] Calcium [Mass/Vol] 9.2 mg/dL Normal 7.6-11.0 [facility] Comment on above: Performed By: #### L 100.0100, L300.4310, L500.2500, L501.9985, L3400.0100, L300.3900, M100.651, BTSPAT #### [facility] [address] [place], [address] Chloride [Moles/Vol] 104 mmol/L Normal 98-108 [facility] Comment on above: Performed By: #### L 100.0100, L300.4310, L500.2500, L501.9985, L3400.0100, L300.3900, M100.651, BTSPAT #### [facility] [address] [place], [address] CO2 [Moles/Vol] 23.4 mmol/L Normal 21.0-32.0 [facility] Comment on above: Performed By: #### L 100.0100, L300.4310, L500.2500, L501.9985, L3400.0100, L300.3900, M100.651, BTSPAT #### [facility] [address] [place], [address] Creatinine [Mass/Vol] 0.86 mg/dL Normal 0.70-1.20 [facility] Comment on above: Performed By: #### L 100.0100, L300.4310, L500.2500, L501.9985, L3400.0100, L300.3900, M100.651, BTSPAT #### [facility] [address] [place], [address] GAP 11 Normal 5-15 [facility] Comment on above: Performed By: #### L 100.0100, L300.4310, L500.2500, L501.9985, L3400.0100, L300.3900, M100.651, BTSPAT #### [facility] [address] [place], [address] GFR/1.73 sq M.predicted among non-blacks MDRD (S/P/Bld) [Vol rate/Area] 97 mL/min/{1.73_m2} Normal >60 [facility] Comment on above: Result Comment: mL/m in/1.73m2 CKD-EPI Creatinine Equation (2020) Performed By: #### L 100.0100, L300.4310, L500.2500, L501.9985, L3400.0100, L300.3900, M100.651, BTSPAT #### [facility] [address] [place], [address] Glucose [Mass/Vol] 118 mg/dL High 70-99 [facility] Comment on above: Performed By: #### L 100.0100, L300.4310, L500.2500, L501.9985, L3400.0100, L300.3900, M100.651, BTSPAT #### [facility] [address] [place], [address] Potassium [Moles/Vol] 4.3 mmol/L Normal 3.3-5.1 [facility] Comment on above: Performed By: #### L 100.0100, L300.4310, L500.2500, L501.9985, L3400.0100, L300.3900, M100.651, BTSPAT #### [facility] [address] [place], [address] Sodium [Moles/Vol] 138 mmol/L Normal 133-145 [facility] Comment on above: Performed By: #### L 100.0100, L300.4310, L500.2500, L501.9985, L3400.0100, L300.3900, M100.651, BTSPAT #### [facility] [address] [place], [address] Urea nitrogen [Mass/Vol] 13 mg/dL Normal 4-19 [facility] Comment on above: Performed By: #### L 100.0100, L300.4310, L500.2500, L501.9985, L3400.0100, L300.3900, M100.651, BTSPAT #### [facility] [address] [place], [address] CBC W/Diff, Automatedon 05-2 Absolute Lymph 1.64 X10 3/uL Normal 0.83-4.51 [facility] Comment on above: Performed By: #### L 100.0100, L300.4310, L500.2500, L501.9985, L3400.0100, L300.3900, M100.651, BTSPAT #### [facility] [address] [place], [address] Absolute Neut 3.1 X10 3/uL Normal 2.0-7.7 [facility] Comment on above: Performed By: #### L 100.0100, L300.4310, L500.2500, L501.9985, L3400.0100, L300.3900, M100.651, BTSPAT #### [facility] [address] [place], [address] Basophils/100 WBC (Bld) 0.9 % Normal 0-1 [facility] Comment on above: Performed By: #### L 100.0100, L300.4310, L500.2500, L501.9985, L3400.0100, L300.3900, M100.651, BTSPAT #### [facility] [address] [place], [address] Eosinophils/100 WBC (Bld) 3.0 % Normal 0-5 [facility] Comment on above: Performed By: #### L 100.0100, L300.4310, L500.2500, L501.9985, L3400.0100, L300.3900, M100.651, BTSPAT #### [facility] [address] [place], [address] Erythrocyte distribution width (RBC) [Ratio] 14.2 % Normal 11.6-14.6 [facility] Comment on above: Performed By: #### L 100.0100, L300.4310, L500.2500, L501.9985, L3400.0100, L300.3900, M100.651, BTSPAT #### [facility] [address] [place], [address] Hematocrit (Bld) [Volume fraction] 44.8 % Normal 40-54 [facility] Comment on above: Performed By: #### L 100.0100, L300.4310, L500.2500, L501.9985, L3400.0100, L300.3900, M100.651, BTSPAT #### [facility] [address] [place], [address] Hemoglobin (Bld) [Mass/Vol] 14.6 g/dL Normal 13.0-16.5 [facility] Comment on above: Performed By: #### L 100.0100, L300.4310, L500.2500, L501.9985, L3400.0100, L300.3900, M100.651, BTSPAT #### [facility] [address] [place], [address] IG% 0.200 Normal 0.0-0.9 [facility] Comment on above: Result Comment: IG% - Immature Granulocytes (promyelocytes, myelocytes and metamyelocytes) > 1% indicates that a LEFT SHIFT is Present. Performed By: #### L 100.0100, L300.4310, L500.2500, L501.9985, L3400.0100, L300.3900, M100.651, BTSPAT #### [facility] [address] [place], [address] Lymphocytes/100 WBC (Bld) 28.9 % Normal 19-41 [facility] Comment on above: Performed By: #### L 100.0100, L300.4310, L500.2500, L501.9985, L3400.0100, L300.3900, M100.651, BTSPAT #### [facility] [address] [place], [address] MCH (RBC) [Entitic mass] 29.1 pg Normal 27.0-32.0 [facility] Comment on above: Performed By: #### L 100.0100, L300.4310, L500.2500, L501.9985, L3400.0100, L300.3900, M100.651, BTSPAT #### [facility] [address] [place], [address] MCHC (RBC) [Mass/Vol] 32.6 g/dL Normal 32-36 [facility] Comment on above: Performed By: #### L 100.0100, L300.4310, L500.2500, L501.9985, L3400.0100, L300.3900, M100.651, BTSPAT #### [facility] [address] [place], [address] MCV (RBC) [Entitic vol] 89.2 fL Normal 80-94 [facility] Comment on above: Performed By: #### L 100.0100, L300.4310, L500.2500, L501.9985, L3400.0100, L300.3900, M100.651, BTSPAT #### [facility] [address] [place], [address] Monocytes/100 WBC (Bld) 11.8 % High 0-10 [facility] Comment on above: Performed By: #### L 100.0100, L300.4310, L500.2500, L501.9985, L3400.0100, L300.3900, M100.651, BTSPAT #### [facility] [address] [place], [address] Neutrophils/100 WBC (Bld) 55.2 % Normal 47-70 [facility] Comment on above: Performed By: #### L 100.0100, L300.4310, L500.2500, L501.9985, L3400.0100, L300.3900, M100.651, BTSPAT #### [facility] [address] [place], [address] Nucleated RBC (Bld) [#/Vol] 0 10*3/uL Normal 0-5 [facility] Comment on above: Performed By: #### L 100.0100, L300.4310, L500.2500, L501.9985, L3400.0100, L300.3900, M100.651, BTSPAT #### [facility] [address] [place], [address] Platelet mean volume (Bld) [Entitic vol] 10.0 fL Normal 6.2-12.0 [facility] Comment on above: Performed By: #### L 100.0100, L300.4310, L500.2500, L501.9985, L3400.0100, L300.3900, M100.651, BTSPAT #### [facility] [address] [place], [address] Platelets (Bld) [#/Vol] 194 10*3/uL Normal 150-450 [facility] Comment on above: Performed By: #### L 100.0100, L300.4310, L500.2500, L501.9985, L3400.0100, L300.3900, M100.651, BTSPAT #### [facility] [address] [place], [address] RBC (Bld) [#/Vol] 5.02 10*6/uL Normal 4.6-6.2 [facility] Comment on above: Performed By: #### L 100.0100, L300.4310, L500.2500, L501.9985, L3400.0100, L300.3900, M100.651, BTSPAT #### [facility] [address] [place], [address] RDW SD 45.4 fl High 35.1-43.9 [facility] Comment on above: Performed By: #### L 100.0100, L300.4310, L500.2500, L501.9985, L3400.0100, L300.3900, M100.651, BTSPAT #### [facility] [address] [place], [address] WBC (Bld) [#/Vol] 5.7 10*3/uL Normal 4.4-11.0 [facility] Comment on above: Performed By: #### L 100.0100, L300.4310, L500.2500, L501.9985, L3400.0100, L300.3900, M100.651, BTSPAT #### [facility] [address] [place], [address] Hemoglobin A1con 01-08-2025 HbA1c (Bld) [Mass fraction] 6.0 % High <=5.6 [facility] Comment on above: Result Comment: Norm al < 5.7 % Prediabetic 5.7 - 6.4 % Diabetic >or= 6.5 % Please note range changes. Performed By: #### L 100.0100, L300.4310, L500.2500, L501.9985, L3400.0100, L300.3900, M100.651, BTSPAT #### [facility] [address] [place], [address] Magnesiumon 01-08-2025 Magnesium [Mass/Vol] 1.9 mg/dL Normal 1.5-2.2 [facility] Comment on above: Performed By: #### L 501.5200 ####[facility] [address] [place], [address] Partial Thromboplast Timeon 01-08-2025 aPTT Coag (Bld) [Time] 26.8 s Normal 24.1-36.2 [facility] Comment on above: Performed By: #### L 100.0100, L300.4310, L500.2500, L501.9985, L3400.0100, L300.3900, M100.651, BTSPAT #### [facility] [address] [place], [place], [address] Prothrombin Time w/INRon INR Coag (PPP) [Relative time] 1.0 {INR} Normal [facility] Comment on above: Performed By: #### L 100.0100, L300.4310, L500.2500, L501.9985, L3400.0100, L300.3900, M100.651, BTSPAT #### [facility] [address] [place], [place], [id number] [phone] PT Coag (PPP) [Time] 13.2 s Normal 11.7-14.9 [facility] Comment on above: Performed By: #### L 100.0100, L300.4310, L500.2500, L501.9985, L3400.0100, L300.3900, M100.651, BTSPAT #### [facility] [address] [place], [address] Type AND Screen - PAT ONLYon 01-08-2025 ABO and Rh group Nom (Bld) Blood group O Rh(D) negative Normal [facility] Comment on above: Order Comment: Reaso n for Laboratory Test pre op [id number] No N N N UNK Performed By: #### L 100.0100, L300.4310, L500.2500, L501.9985, L3400.0100, L300.3900, M100.651, BTSPAT #### [facility] [address] [place], [place], [address] MR/PAT.ANEon 12-27-2024 MR/PAT.ANE [facility] Medical Records Department [address] [place] [address] PAT - Anesthesia 12/27/24 173 MR#: [id number] Acct: [id number] Name: JACK SPRINGER Rep #: [id number] : 1960 64 From: Thom Patterson MD PCP: ESTEBAN Izquierdo Status:PRE [facility] Y Race: C Location: [facility] Pre-Assessment Diagnosis/Proposed Procedure Planned Operative Procedure(s): (L) Left Total Knee Replacement Robotic Arm Assisted with hardware removal Anesthesia History Anesthesia History - box packer: Anesthesia History - box packer Hx Hospitalization No 12/24/24 09:05 Any Problems With Anesthesia No 12/24/24 09:05 Cholinesterase deficiency No 12/24/24 09:05 You/Your Family Experience No 12/24/24 09:05 fever (hyperthermia) with Relationship Recent Exposure to Contagious Disease Does patient have nerve No 12/24/24 09:05 stimulator Patient instructed to have device shut off --Does patient have Pacemaker or ICD? When Was Last Pacemaker Check QUESTION #4 FULL TEXT: You/Your Family Experience fever (hyperthermia) with Anesthesia Last Oral Intake Last Oral intake: Last Oral Intake NPO since Meds taken in AM with sips of water? Meds patient instructed to take am of surgery PONV PONV - box packer: PONV - box packer Female No 12/24/24 09:05 HX of Motion Sickness No 12/24/24 09:05 HX of N/V After Surgery No 12/24/24 09:05 Non-Smoker Yes 12/24/24 09:05 Duration of Surgery greater Yes 12/24/24 09:05 than 60 minutes Number of Risk Factors 2 12/24/24 09:05 PONV Score Moderate Risk 12/24/24 09:05 Height Weight Height Weight: Anesthesia: Height Weight Height 5 ft 8 in 10/29/24 15:05 Respiratory Assessment Respiratory Assessment - box packer: Respiratory Tract Infection Hx - box packer Hx Respiratory Tract Infection No 12/24/24 09:05 STOP Sleep Apnea STOP Sleep Apnea - box packer: STOP Sleep Apnea - box packer Hx Hypertension Yes 12/24/24 09:05 Hx Sleep Apnea Yes 12/24/24 09:05 CPAP Yes: non compliant 12/24/24 09:05 BIPAP No 12/24/24 09:05 Do you snore loudly (louder than talking or can be heard Do you often feel tired/ fatigued/ sleepy during daytime? Has anyone observed you stop breathing during sleep? STOP Results Positive 12/24/24 09:05 QUESTION #5 FULL TEXT : Do you snore loudly (louder than talking or can be heard through closed doors)? 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 Specify any problems Hx of Preganancy in last 3 N/A 12/24/24 09:05 Months Nurse Filling Out Transfusion JZOLLDESIREE 12/24/24 09:05 Questions: Date: 12/24/24 12/24/24 09:05 Time: 09:13 12/24/24 09:05 Patient unable to answer at this time (ie. confused, unrespo /Reproduction History /Reproductive History - box packer: /Reproductive Hx- box packer Hx Now No 12/24/24 09:05 Gestational Age (in weeks): EDC: Hx Hx Para Hx Section SAB No 12/24/24 09:05 PFSH Medical History Hx of electrocardiogram Hx of cardiovascular stress test Hx of echocardiogram History of Holter monitoring Wears glasses Hx of psoriasis High cholesterol Former smoker Sleep apnea Shortness of breath on exertion HTN (hypertension) Home Medications ???Medication ???Instructions ???Recorded ???Last Taken ???Type metoprolol succinate 100 mg 50 mg PO .hs 11/18/21 Unknown Hist ory tablet,extended release 24 hr ezetimibe 10 mg tablet 10 mg PO QDAY 10/29/24 Unknown His tory hydroxyzine HCl 10 mg tablet 10 mg PO QHS PRN insomnia 10/29/24 Unknown History amlodipine 10 mg tablet 10 mg PO .q am 12/24/24 Unknown Hi story cholecalciferol (vitamin D3) 50 2,000 unit PO DAILY 12/24/24 Unkno wn History mcg (2,000 unit) tablet (D3 DOTS) cyanocobalamin (vitamin B-12) (more content not included)... Normal [facility] Orthopedic Visit Reporton Orthopedic Visit Report [facility] [address] [place] [address] [address] [place] [address] OFFICE VISIT Date of Service: 12/26/24 MR#: [id number] Acct: [id number] Name: JACK SPRINGER Rep #: [id number] : 1960 Provider: HARLAN peters Age/Sex: 64/M Location: [facility] Status: Signed Intake Vital Signs 10/29/24 15:05 12/26/24 14:41 Height 5 ft 8 in 5 ft 8 in Weight: 250 lb BMI 38.0 Intake Visit Reasons: left knee Chief Complaint: left knee pain Iovera Accompanied by: Self Is patient in pain?: Yes Pain scale (1-10): 4 Allergies No Known Allergies Allergy (Verified 12/26/24 14:43) Medications ???Medication ???Instructions ???Recorded ???Confirmed ???Type metoprolol succinate 100 mg 50 mg PO .hs 11/18/21 12/26/24 His tory tablet,extended release 24 hr ezetimibe 10 mg tablet 10 mg PO QDAY 10/29/24 12/26/24 Hi story hydroxyzine HCl 10 mg tablet 10 mg PO QHS PRN insomnia 10/29/24 12/26/24 History amlodipine 10 mg tablet 10 mg PO .q am 12/24/24 12/26/24 H istory cholecalciferol (vitamin D3) 50 2,000 unit PO DAILY 12/24/2412/26 History mcg (2,000 unit) tablet (D3 DOTS) cyanocobalamin (vitamin B-12) 500 500 mcg PO DAILY 12/24/24 5 History mcg tablet (B-12 DOTS) testosterone 100 mg implant pellet 100 mg subcut ONCE 12/26/2412/13 History Have you fallen in the past year?: No PFSH Medical History Wears glasses Hx of psoriasis High cholesterol Former smoker Sleep apnea Shortness of breath on exertion HTN (hypertension) Surgical History Hx of colonoscopy Hx of arthroscopy of left knee Family History Other COPD (chronic obstructive pulmonary disease) Diabetes Heart disease Social History Smoking Status: Former smoker alcohol intake: never substance use type: does not use HPI left knee Details: This documentation accurately reflects the service provided and the decisions made by me, Sarai Shah, HYDRAULIC ROCKBREAKER OPERATOR-C 12/26/24 1441. Part of today???s visit was documented by Nahum Alfaro MA, acting as scribe. JACK SPRINGER is a 64 year old M here today for left knee iovera. Patient is here for the iovera procedure. He states that his pain is not as bad as it was, he has been wearing his knee brace. Patient denies any injections or physical therapy since his last visit with us. Agree with above. Jack is a pleasant 64-year-old gentleman presenting today for left knee iovera treatment for left knee pain with history left knee OA and scheduled for TKA with Dr. Jaeger in 2 weeks. Hx includes left knee [place] [address] Bandar Crowe in [place] with a meniscus tear at the time as well as a MCL and ACL repair. Last series of gel treatments approximately 2 years ago, symptoms remain progressive in nature and are affecting his ability to do what he wants and needs to do. ROS Const All systems reviewed are unremarkable except as noted in H and other (A O x 3, no apparent distress. No recent illness.) ENT Denies dizziness Card Denies chest pain, Denies dyspnea, Denies edema and Reports other (No palpitations) Resp Denies cough, Denies dyspnea and Reports other (No recent URI) GI Reports system reviewed and no additional complaints, except as documented, Denies nausea and Denies vomiting Musc Reports as per HPI, Reports arthralgias and Reports limited range of motion Neuro No dizziness Psych Reports system reviewed and no additional complaints, except as documented Brian/Lymph Denies easy bleeding and Denies easy bruising Ortho Exam Left Knee KNEE: Skin is pink, warm, dry and intact. No discoloration present, mild generalized anterior swelling Range of motion: 0 to 100 degrees with tightness and 0-10 and greater than 90 Palpation: Tender to palpation over the medial joint Lower leg is soft, nontender, easily compressible, Homans negative Gait: Ambulatory with stiff steady gait, mild left-sided limp Full range of distal joints with no symptom aggravation Distal motor or sensory intact with brisk cap refill at 2 seconds Office Procedures Iovera Procedure Details:: Preoperative diagnosis: Chronic left knee pain Postoperative diagnosis: Same Procedure: Cryotherapy with Iovera device using Smart tip 2309 to anterior femoral cutaneous nerve and 2 branches of the infrapatellar saphenous nerve. Three nerves in total. Description of procedure: Patient was brought back to the procedure room the operative extremity was identified by both patient and provider. Reviewed allergies prior to proceedi (more content not included)... Normal [facility] TESTOSTERONE, TOTAL, MALES ( ADULT), IAon 12-15-2024 TESTOSTERONE, TOTAL, MALES (ADULT), IA 97 ng/dL Low 250-827 [facility] Comment on above: Order Comment: FASTI NG:UNKNOWN FASTING: UNKNOWN Result Comment: In h ypogonadal males, Testosterone, Total, LC/MS/MS, is the recommended assay due to the diminished accuracy of immunoassay at levels below 250 ng/dL. This test code (89341) must be collected in a red-top tube with no gel. Performed By: #### 8 73 #### [facility] [address], [address] [place] [phone] Lead Applications Developer: Roly Oneill MD CBC (H/H, RBC, INDICES, WBC, PLT)on 12-11-2024 Erythrocyte distribution width (RBC) [Ratio] 14.7 % Normal 11.0-15.0 [facility] Comment on above: Performed By: #### 1 699, 47111, 767, 29040, 98506, 0614 #### [facility] [address], [address] [place] [phone] Lead Applications Developer: Roly Oneill MD Hematocrit (Bld) [Volume fraction] 46.4 % Normal 38.5-50.0 [facility] Comment on above: Performed By: #### 1 759, 58787, 927, 87416, 55187, 7600 #### [facility] [place] [address] Lead Applications Developer: Roly Oneill MD Hemoglobin (Bld) [Mass/Vol] 15.2 g/dL Normal 13.2-17.1 [facility] Comment on above: Performed By: #### 1 759, 89413, 927, 81034, 87789, 7600 #### [facility] [place] [address] Lead Applications Developer: Roly Oneill MD MCH (RBC) [Entitic mass] 29.5 pg Normal 27.0-33.0 [facility] Comment on above: Performed By: #### 1 759, 22768, 927, 70073, 71003, 7600 #### [facility] [place] [address] Lead Applications Developer: Roly Oneill MD MCHC (RBC) [Mass/Vol] 32.8 g/dL Normal 32.0-36.[address] [facility] Comment on above: Result Comment: For adults, a slight decrease in the calculated MCHC value (in the range of 30 to 32 g/dL) is most likely not clinically significant; however, it should be interpreted with caution in correlation with other red cell parameters and the patient's clinical condition. Performed By: #### 1 759, 26201, 927, 44686, 81205, 7600 #### [facility] [place] [address] Lead Applications Developer: Roly Oneill MD MCV (RBC) [Entitic vol] 89.9 fL Normal 80.0-100.0 [facility] Comment on above: Performed By: #### 1 759, 51281, 927, 27398, 70734, 7600 #### [facility] [place] [address] Lead Applications Developer: Roly Oneill MD Platelet mean volume (Bld) [Entitic vol] 10.2 fL Normal 7.5-12.5 [facility] Comment on above: Performed By: #### 1 759, 47252, 927, 73525, 57376, 7600 #### [facility] of [address], [address] [place] [address] Lead Applications Developer: Roly Oneill MD Platelets (Bld) [#/Vol] 216 10*3/uL Normal 140-400 [facility] Comment on above: Performed By: #### 1 759, 14342, 927, 25835, 30668, 7600 #### [facility] [place] [address] Lead Applications Developer: Roly Oneill MD RBC (Bld) [#/Vol] 5.16 10*6/uL Normal 4.20-5.80 [facility] Comment on above: Performed By: #### 1 759, 64723, 927, 12311, 59928, 7600 #### [facility] of [place] [address] Lead Applications Developer: Roly Oneill MD WBC (Bld) [#/Vol] 6.1 10*3/uL Normal 3.8-10.8 [facility] Comment on above: Performed By: #### 1 759, 21603, 927, 85997, 90435, 7600 #### [facility] of [place] [address] Lead Applications Developer: Roly Oneill MD COMPREHENSIVE METABOLIC PANE L W/ANION GAPon 12-11-2024 Albumin [Mass/Vol] 4.3 g/dL Normal 3.6-5.1 [facility] Comment on above: Performed By: #### 1 759, 49704, 927, 62505, 54133, 7600 #### [facility] of [place] [address] Lead Applications Developer: Roly Oneill MD ALP [Catalytic activity/Vol] 40 U/L Normal 35-144 [facility] Comment on above: Performed By: #### 1 759, 38681, 927, 91053, 63487, 7600 #### [facility] [place] [address] Lead Applications Developer: Roly Oneill MD ALT [Catalytic activity/Vol] 25 U/L Normal 9-46 [facility] Comment on above: Performed By: #### 1 759, 44244, 927, 26930, 12332, 7600 #### [facility] of [place] [address] Lead Applications Developer: Roly Oneill MD AST [Catalytic activity/Vol] 24 U/L Normal 10-35 [facility] Comment on above: Performed By: #### 1 759, 19511, 927, 30779, 64873, 7600 #### [facility] of [place] [address] Lead Applications Developer: Roly Oneill MD Bilirubin [Mass/Vol] 0.6 mg/dL Normal 0.2-1.2 [facility] Comment on above: Performed By: #### 1 759, 21864, 927, 35847, 44265, 7600 #### [facility] [place] [address] Lead Applications Developer: Roly Oneill MD Calcium [Mass/Vol] 9.3 mg/dL Normal 8.6-10.3 [facility] Comment on above: Performed By: #### 1 759, 72740, 927, 03428, 04476, 7600 #### [facility] of [place] [address] Lead Applications Developer: Roly Oneill MD Chloride [Moles/Vol] 106 mmol/L Normal 98-110 [facility] Comment on above: Performed By: #### 1 759, 06294, 927, 88833, 29870, 7600 #### [facility] of [place] [id number] Lead Applications Developer: Roly Oneill MD CO2 [Moles/Vol] 24 mmol/L Normal 20-32 [facility] Comment on above: Performed By: #### 1 759, 88291, 927, 22276, 24624, 7600 #### [facility] [address], [address] [place] [address] Lead Applications Developer: Roly Oneill MD Creatinine [Mass/Vol] 0.80 mg/dL Normal 0.70-1.35 [facility] Comment on above: Performed By: #### 1 759, 48329, 927, 55180, 35214, 7600 #### [facility] [place] [address] Lead Applications Developer: Roly Oneill MD ELECTROLYTE BALANCE 9 mmol/L (calc) Normal 7-17 [facility] Comment on above: Performed By: #### 1 759, 00869, 927, 57261, 72706, 7600 #### [facility] [place] [address] Lead Applications Developer: Roly Oneill MD GFR/1.73 sq M.predicted among non-blacks MDRD (S/P/Bld) [Vol rate/Area] 99 mL/min/{1.73_m2} Normal > OR = 60 [facility] Comment on above: Performed By: #### 1 759, 46654, 927, 91437, 72782, 7600 #### [facility] [place] [address] Lead Applications Developer: Roly Oneill MD Glucose [Mass/Vol] 111 mg/dL High 65-99 [facility] Comment on above: Result Comment: Fasting reference interval For someone without known diabetes, a glucose value between 100 and 125 mg/dL is consistent with prediabetes and should be confirmed with a follow-up test. Performed By: #### 1 759, 85600, 927, 60991, 13052, 7600 #### [facility] [place] [phone] Lead Applications Developer: Roly Oneill MD Potassium [Moles/Vol] 4.1 mmol/L Normal 3.5-5.3 [facility] Comment on above: Performed By: #### 1 759, 68407, 927, 63886, 28239, 7600 #### [facility] of [address], [address] [place] [address] Lead Applications Developer: Roly Oneill MD Protein [Mass/Vol] 6.9 g/dL Normal 6.1-8.1 [facility] Comment on above: Performed By: #### 1 759, 76873, 927, 08320, 13455, 7600 #### [facility] [address], [address] [place] [address] Lead Applications Developer: Roly Oneill MD Sodium [Moles/Vol] 139 mmol/L Normal 135-146 [facility] Comment on above: Performed By: #### 1 759, 96767, 927, 55772, 93415, 7600 #### [facility] [address], [address] [place] [address] Lead Applications Developer: Roly Oneill MD Urea nitrogen [Mass/Vol] 20 mg/dL Normal 7-25 [facility] Comment on above: Performed By: #### 1 759, 23061, 927, 81474, 47751, 7600 #### [facility] of [address], [address] [place] [address] Lead Applications Developer: Roly Oneill MD LIPID PANEL, [facility] - Cholesterol [Mass/Vol] 199 mg/dL Normal <200 [facility] Comment on above: Order Comment: FASTI NG:YES FASTING: YES Performed By: #### 1 759, 23299, 927, 23858, 24804, 7600 #### [facility] of [place] [address] Lead Applications Developer: Roly Oneill MD Cholesterol in HDL [Mass/Vol] 40 mg/dL Normal > OR = 40 [facility] Comment on above: Order Comment: FASTI NG:YES FASTING: YES Performed By: #### 1 759, 97541, 927, 75105, 52170, 7600 #### [facility] [address], [address] [place] [address] Lead Applications Developer: Roly Oneill MD Cholesterol in LDL [Mass/Vol] 125 mg/dL High [facility] Comment on above: Order Comment: FASTI NG:YES FASTING: YES Result Comment: Refe rence range: <100 Desirable range <100 mg/dL for primary prevention; <70 mg/dL for patients with CHD or diabetic patients with > or = 2 CHD risk factors. LDL-C is now calculated using the Yovanny calculation, which is a validated novel method providing better accuracy than the Friedewald equation in the estimation of LDL-C. Joel CHRISTINE et al. JULIANNE. 2013;310(19): 9100-1205 (http://education.Konnects.PixSpree/faq/ESY966) Performed By: #### 1 759, 78216, 927, 93115, 86726, 7600 #### [facility] [address], [address] [place] [address] Lead Applications Developer: Roly Oneill MD Cholesterol.total/Chol esterol in HDL [Mass ratio] 5.0 {ratio} High <5.0 [facility] Comment on above: Order Comment: FASTI NG:YES FASTING: YES Performed By: #### 1 759, 83595, 927, 69178, 56785, 7600 #### [facility] [address], [address] [place], [place] [id number] Lead Applications Developer: Roly Oneill MD NON HDL CHOLESTEROL 159 mg/dL (calc) High <130 [facility] Comment on above: Order Comment: FASTI NG:YES FASTING: YES Result Comment: For patients with diabetes plus 1 major ASCVD risk factor, treating to a non-HDL-C goal of <100 mg/dL (LDL-C of <70 mg/dL) is considered a therapeutic option. Performed By: #### 1 759, 75892, 927, 27379, 80553, 7600 #### [facility] [address], [address] [place] [address] Lead Applications Developer: Roly Oneill MD Triglyceride [Mass/Vol] 220 mg/dL High <150 [facility] Comment on above: Order Comment: FASTI NG:YES FASTING: YES Result Comment: If a non-fasting specimen was collected, consider repeat triglyceride testing on a fasting specimen if clinically indicated. Marc et al. J. of Clin. Lipidol. 2015;9:129-169. Performed By: #### 1 759, 54373, 927, 32177, 16277, 7600 #### [facility] [address], [address] [place] [address] Lead Applications Developer: Roly Oneill MD PSA, TOTAL, MONITORINGon PSA, TOTAL, MONITORING 2.18 ng/mL Normal < OR = 4.00 [facility] Comment on above: Result Comment: The total PSA value from this assay system is standardized against the WHO standard. The test result will be approximately 20% lower when compared to the equimolar-standardized total PSA (Cl [place]). Comparison of serial PSA results should be interpreted with this fact in mind. This test was performed using the Siemens chemiluminescent method. Values obtained from different assay methods cannot be used interchangeably. PSA levels, regardless of value, should not be interpreted as absolute evidence of the presence or absence of disease. Performed By: #### 1 759, 84097, 927, 31149, 65539, 7600 #### [facility] [address], [address] [place] [address] Lead Applications Developer: Roly Oneill MD VITAMIN B12on 12-11-2024 Cobalamin (Vitamin B12) [Mass/Vol] 685 pg/mL Normal 200-1100 [facility] Comment on above: Performed By: #### 1 759, 43016, 927, 61825, 00055, 7600 #### [facility] [address], [address] [place] [address] Lead Applications Developer: Roly Oneill MD VITAMIN D,25-OH,TOTAL,IAon 0 12-11-2024 VITAMIN D,25-OH,TOTAL,IA 27 ng/mL Low 30-100 [facility] Comment on above: Result Comment: Marion min D Status 25-OH Vitamin D: Deficiency: <20 ng/mL Insufficiency: 20 - 29 ng/mL Optimal: > or = 30 ng/mL For 25-OH Vitamin D testing on patients on D2-supplementation and patients for whom quantitation of D2 and D3 fractions is required, the QuestAssureD(TM) 25-OH VIT D, (D2,D3), LC/MS/MS is recommended: order code 23649 (patients >2yrs). See Note 1 Note 1 For additional information, please refer to http://education.Konnects.PixSpree/faq/ZZY893 (This link is being provided for informational/ educational purposes only.) Performed By: #### 1 759, 53425, 927, 48728, 98916, 7600 #### [facility] [address], [address] [place] [id number] Lead Applications Developer: Roly Oneill MD Extremity Lower without Cont raon 12-08-2024 Extremity Lower without Contra [facility] Imaging Services [address] [place] [address] Extremity Lower without Contra MR#: [id number] Acct: [id number] Name: JACK SPRINGER Rep #: [id number] : 1960 M 64 From: Booker Mitchell MD PCP: Dr. Carlos Bazzi MD Status: REG CLI Study: Extremity Lower without Contra Date of Exam: 0 12/08/24 Exam# [id number] Ordering Dr: Shan Jaeger DO PROCEDURE: EXTREMITY LOWER WITHOUT CONTRA 12/08/2024 REASON FOR EXAM: TEMPLATING FOR LEFT TKA TECHNIQUE: Axial CT images of the x-ray earlier today obtained with intravenous contrast. Coronal and Sagittal reconstruction series were provided. Multiple thin-section axial CT images of the left hip, left knee, and left ankle were obtained and filmed in bone windows and reconstructions were performed. One or more dose reduction techniques were used (e.g., Automated exposure control, adjustment of the mA and/or kV according to patient size, use of iterative reconstruction technique). FINDINGS: Bones: No acute fracture or dislocation. No lytic or blastic lesions. Joints: Moderate joint space narrowing of the hip joint consistent with moderate arthrosis. Status post anterior cruciate ligament reconstruction with surgical anchors. Severe joint space narrowing, osteophyte formation, and subchondral sclerosis of the medial compartment of the knee joint consistent with severe arthrosis. Moderate joint space narrowing and osteophyte formation of the lateral compartment consistent with moderate arthrosis. Mild joint space narrowing and osteophyte formation of the patellofemoral compartment consistent with mild arthrosis. Soft Tissues: No abnormal soft tissue mass, lymphadenopathy, or fluid collection. CT/Extremity Lower without Contra IMPRESSION: Status post anterior cruciate ligament reconstruction. Severe arthrosis. Reading Location: [facility] CC: Dr. Carlos Bazzi MD; Dr. Shan Jaeger DO Extension Service Specialist In Charge: Signed Normal [facility] Knee 4 or More Viewson 12-08 Knee 4 or More Views [facility] Imaging Services [address] [place] [id number] Knee 4 or More Views MR#: [id number] Acct: [id number] Name: JACK SPRINGER Rep #: [id number] : 1960 M 64 From: Rex Demarco MD PCP: Dr. Carlos Bazzi MD Status: REG CLI Study: Knee 4 or More Views Date of Exam: 12/08/24 Exam# [id number] Ordering Dr: Shan Jaeger DO EXAM: XR Left Knee Complete, 4 or More Views CLINICAL INDICATION: PAIN, UPCOMING SURGERY TECHNIQUE: Four or more views of the left knee. COMPARISON: No relevant prior studies available. FINDINGS: BONES/JOINTS: Evidence of prior ligamentous repair. Intact hardware. Anatomic position. Moderate degenerative changes of the medial compartment of the knee joint. No acute fracture. No dislocation. SOFT TISSUES: Mild soft tissue swelling. RAD/Knee 4 or More Views IMPRESSION: 1. Degenerative changes as above. 2. Postoperative changes as above. Reading Location: [facility] CC: Dr. Carlos Bazzi MD; Dr. Shan Jaeger DO Extension Service Specialist In Charge: Signed Normal [facility] Orthopedic Visit Reporton Orthopedic Visit Report [facility] [address] [place] [address] OFFICE VISIT Date of Service: 10/29/24 MR#: [id number] Acct: [id number] Name: JACK SPRINGER Rep #: [id number] : 1960 Provider: Dr. Shan hull DO Age/Sex: 63/M Location: [facility] Status: Signed Intake Vital Signs 07/27/22 16:57 10/29/24 15:05 Height 5 ft 8 in 5 ft 8 in Weight: 254 lb 2 oz BMI 38.6 Intake Visit Reasons: LEFT KNEE Chief Complaint: left knee pain Accompanied by: Is patient in pain?: No Allergies No Known Allergies Allergy (Verified 10/29/24 15:05) Medications ???Medication ???Instructions ???Recorded ???Confirmed ???Type metoprolol succinate 100 mg tablet PO 11/18/21 10/29/24 Histor y tablet,extended release 24 hr ezetimibe 10 mg tablet 10 mg PO QDAY 10/29/24 10/29/24 Hi story hydroxyzine HCl 10 mg tablet 10 mg PO QHS PRN insomnia 10/29/24 10/29/24 History PFSH Medical History HTN (hypertension) Surgical History Hx of arthroscopy of left knee Family History Other COPD (chronic obstructive pulmonary disease) Diabetes Heart disease Social History Smoking Status: Never smoker alcohol intake: never substance use type: does not use HPI LEFT KNEE Details: This documentation accurately reflects the service provided and the decisions made by me, Dr. Shan Jaeger DO 10/29/24 0924. Part of today???s visit was documented by Jessy Burks ATC, acting as scribe. JACK SPRINGER is a 63 year old M here today for left knee pain. Patient states he wears a compression brace most of the time because he climbs stairs. He states this does give him relief and a little extra support. He has stopped hiking and walking due to the knee pain. He states the steroid injections that he has gotten in the past has helped him with the pain. He states he did not see a big difference with the visco injections that he had. He denies any recent falls/injury to the knee that would have caused the pain to get worse. He wants to talk about next steps. He complains of pain more over the medial aspect of the knee. 02/10/2022:3rd euflexxa injection left knee 11/18/2021:61 year old M NEW patient here today for left knee pain that he has been having for about 1 month. Denies any new injury. He has mostly a deep medial sided knee pain. He has increased pain with extension and when the knee becomes stiff. He has increased pain with prolonged ambulation. Denies numbness, tingling or other associated symptoms. Denies any radiating leg pain. He has had a left knee [place] in [address] Bandar Crowe in [place]. This was the only surgery he had on the knee. He had a meniscus tear at the time as well as a MCL and ACL repair. Unsure if he had hamstring or bone tendon bone graft. Scar looks like hamstring graft but xrays look like bone tendon bone graft. He has had injection on the knee about 5-6 years ago. Denies any recent knee bracing. He is taking Tylenol for the pain. He has also been using heat. Denies any topical pain creams. He does have occasional painful popping in the knee. He does have occasional feelings of giving out. Plan:obtained X-rays of patient's left knee. Personally reviewed x-rays. There is no obvious fracture, dislocation, or lucency noted. Patient educated that because of his hx of ACL repair he was at an increased risk of developing arthritis. 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 He also has some patellofemoral arthritis of the knee. Educated that his knee just may be inflamed at this time. Treatment options are do nothing or bracing or PT for strengthening or steroid injection or NSAIDs or viscosupplementation or if conservative care fails then surgical option would be TKA. He wishes to proceed with a left steroid injection at this time. He can also take OTC Ibuprofen OR Aleve for the next few days for inflammation. Ortho Exam General General: Yes no acute distress and Yes well groomed Neurologic: Yes alert and Yes oriented x3 Psychologic: Yes reasonable and appropriate Right Knee Patella Translation: 1 Left Knee Skin/Wound: No ecchymosis, No erythema and No swelling Homans Sign: No Knee ROM: Yes ROM-Extension -20 to 0 and No ROM-Flexion 0-140 (115) Examination: Yes med jt line tenderness, No Lat jt line tenderness, No TTP Patellar tendon and No TTP Pes Anserine Stability: NML: Anterior Drawer, NML: Posterior Drawer, NML: Valgus 30, NML: Varus 0 and NML: Varus 30 Patella Translation: 1 Patella Grind: No KN (more content not included)... Normal [facility] XR CHEST 2 VIEWSon XR CHEST 2 VIEWS Interpreted By: Jhonny Perez, STUDY: XR CHEST 2 VIEWS; ; 10/08/2024 4:16 pm INDICATION: Signs/Symptoms:cough. COMPARISON: 11/04/2022 ACCESSION NUMBER(S): [id number] ORDERING CLINICIAN: OSMAN MORIN TECHNIQUE: 2 radiographs of the chest were performed. FINDINGS: The heart is of normal size and contour. The pulmonary vessels are within normal limits. There is ill definition of the left hemidiaphragm which may be positional though is not visualized on the previous study. Small infiltrate in the left lower lobe can not be excluded. The right lung is clear. There is no pneumothorax or sizable pleural fluid collection. The osseous structures are intact. IMPRESSION: Small infiltrate in the left lower lobe is not entirely excluded. Continued follow-up is recommended. MACRO: None Signed by: Jhonny Perez 10/09/2024 8:30 PM Dictation workstation: [id number] [facility] CARDIOLOGY INTERPRETATION OF NUCLEAR STRESSon 09-24-2024 CARDIOLOGY INTERPRETATION [place] [address] [id number], Nuclear Pharmacologic Stress Test Patient Name: JACK SPRINGER Ordering Provider: [id number] OLU BRADY Study Date: 09/24/2024 Reading Physician: Mainor Brady MD MRN/PID: [id number] Supervising Physician: Mainor Brady MD Fellow: Date of /Age: 3 1960 / 63 years Fellow: Gender: M Nurse: N/A Admit Date: 09/24/2024 Para Machine Operator: Admission Status: Outpatient Manager Online: N/A Height: 173.00 cm Technologist: Millicent Richards RRT Weight: 114.00 kg Additional Staff: BSA: 2.25 m2 BMI: 38.09 kg/m2 Patient Location: [facility] Stress Lab Study Type: CARDIOLOGY INTERPRETATION OF NUCLEAR STRESS Diagnosis/ICD: Abnormal findings on diagnostic imaging of heart and coronary circulation-R93.1 Indication: Dyspnea, Hypertension and ELEVATED CACS, HLD CPT Codes: Stress Test Interpretation-[id number]; Stress Test Supervision-[id number] Falls Risk: Low: Patient has low risk for sustaining a fall; environmental safety interventions in place. Study Details: Correct procedure and correct patient verified verbally and with ID Band checked. Patient History: Hypertension, hyperlipidemia, dyspnea and ELEVATED CACS. Allergies: STATINS. Smoker: Former. Diabetes: No. BMI: Obese >30. Medications: METOPROLOL. The patient did not take medications as prescribed. Patient Performance: Patient received a total of 0.4 mg of Regadenoson at 10:53:17 AM. Patient received a total of 34 mCi of Myoview at 10:53:51 AM. The resting blood pressure was 180/87 mmHg with a heart rate of 55 bpm. The patient developed no symptoms during the stress exam. The symptoms resolved with rest 4 minutes into recovery. The blood pressure response was hypertensive. The test was terminated due to: completed lab protocol. Baseline ECG: Resting ECG showed sinus bradycardia with normal tracing. Stress Stage Data: + +--+--- ---+-------+ HR Sys BP Brown BP + +--+--- ---+-------+ Baseline Resting 55 180 87 + +--+--- ---+-------+ Stage 1/2 53 + +--+--- ---+-------+ Stage I 75 151 86 + +--+--- ---+-------+ Recovery ECG: Recovery ECG showed normal sinus rhythm. The heart rate recovery was normal. + +--+------+ -------+ HR Sys BP Brown BP + +--+------+ -------+ Recovery I 78 + +--+------+ -------+ Recovery II 74 161 93 + +--+------+ -------+ Recovery III 64 + +--+------+ -------+ Recovery IV 60 156 92 + +--+------+ -------+ Summary: 1. Baseline EKG showing sinus bradycardia rhythm with no resting ST-T segment changes. 2. With regadenoson infusion, there are no ST-T segment changes suggestive of ischemia. No sustained ventricular arrhythmias are seen. 3. Regadenoson stress EKG is negative for ischemia. 4. Adequate level of stress achieved. 5. Nuclear image results are reported separately. [id number] Olu Brady MD Electronically signed on 09/24/2024 at 4:45:58 PM Final Normal [facility] NM Heart Perfusion W stress and W radionuclide Connie 09-24-2024 1. Negative myocardi al perfusion study without evidence of inducible myocardial ischemia or prior infarction. 2. The left ventricle is normal in size. 3. Normal LV wall motion with a post-stress LV EF estimated at 47%. I personally reviewed the images/study and I agree with the findings as stated. This study was interpreted at [place], [place]. MACRO: None Signed by: Nasrin Jeffery 09/24/2024 1:00 PM Dictation workstation: [id number] MMODAL Interpreted By: Nasrin Jeffery, STUDY: NUCLEAR STRESS TEST; 09/24/2024 12:11 pm INDICATION: Signs/Symptoms:SOB. COMPARISON: None. ACCESSION NUMBER(S): [id number] ORDERING CLINICIAN: OLU BRADY TECHNIQUE: DIVISION OF NUCLEAR MEDICINE PHARMACOLOGIC STRESS MYOCARDIAL PERFUSION SCAN, ONE DAY PROTOCOL The patient received an intravenous dose of 10.8 mCi of Tc-99m Myoview and resting emission tomographic (SPECT) images of the myocardium were acquired. The patient then received an intravenous infusion of 0.4mg regadenoson (Lexiscan) followed by an additional dose of 34 mCi of Tc-99m Myoview. Stress phase SPECT images of the myocardium were then acquired. These included ECG-gated images to assess and quantify ventricular function. A low-dose, nondiagnostic regional CT was utilized for attenuation correction purposes. FINDINGS: Both stress and rest studies demonstrate grossly normal perfusion throughout the left ventricle. The left ventricle is normal in size. Gated images demonstrate normal LV wall motion with a post-stress LV EF estimated at 47%. Attenuation correction CT images demonstrate no gross anatomic abnormalities. MMODAL Nasrin Jeffery MD - 09/24/2024 Interpreted By: Nasrin Jeffery, STUDY: NUCLEAR STRESS TEST; 09/24/2024 12:11 pm INDICATION: Signs/Symptoms:SOB. COMPARISON: None. ACCESSION NUMBER(S): [id number] ORDERING CLINICIAN: OLU BRADY TECHNIQUE: DIVISION OF NUCLEAR MEDICINE PHARMACOLOGIC STRESS MYOCARDIAL PERFUSION SCAN, ONE DAY PROTOCOL The patient received an intravenous dose of 10.8 mCi of Tc-99m Myoview and resting emission tomographic (SPECT) images of the myocardium were acquired. The patient then received an intravenous infusion of 0.4mg regadenoson (Lexiscan) followed by an additional dose of 34 mCi of Tc-99m Myoview. Stress phase SPECT images of the myocardium were then acquired. These included ECG-gated images to assess and quantify ventricular function. A low-dose, nondiagnostic regional CT was utilized for attenuation correction purposes. FINDINGS: Both stress and rest studies demonstrate grossly normal perfusion throughout the left ventricle. The left ventricle is normal in size. Gated images demonstrate normal LV wall motion with a post-stress LV EF estimated at 47%. Attenuation correction CT images demonstrate no gross anatomic abnormalities. IMPRESSION: 1. Negative myocardial perfusion study without evidence of inducible myocardial ischemia or prior infarction. 2. The left ventricle is normal in size. 3. Normal LV wall motion with a post-stress LV EF estimated at 47%. I personally reviewed the images/study and I agree with the findings as stated. This study was interpreted at [place], [place]. MACRO: None Signed by: Nasrin Jeffery 09/24/2024 1:00 PM Dictation workstation: [id number] [facility] Work Phone: Radiology Study observation (narrative) [facility] Work Phone: NM Heart Perfusion W stress and W radionuclide IVOrdered By: Nasrin Jeffery on 09-24-2024 [facility] Work Phone: NUCLEAR STRESS TESTon 2024 NUCLEAR STRESS TEST Interpreted By: Nasrin Jeffery, STUDY: NUCLEAR STRESS TEST; 09/24/2024 12:11 pm INDICATION: Signs/Symptoms:SOB. COMPARISON: None. ACCESSION NUMBER(S): [id number] ORDERING CLINICIAN: OLU BRADY TECHNIQUE: DIVISION OF NUCLEAR MEDICINE PHARMACOLOGIC STRESS MYOCARDIAL PERFUSION SCAN, ONE DAY PROTOCOL The patient received an intravenous dose of 10.8 mCi of Tc-99m Myoview and resting emission tomographic (SPECT) images of the myocardium were acquired. The patient then received an intravenous infusion of 0.4mg regadenoson (Lexiscan) followed by an additional dose of 34 mCi of Tc-99m Myoview. Stress phase SPECT images of the myocardium were then acquired. These included ECG-gated images to assess and quantify ventricular function. A low-dose, nondiagnostic regional CT was utilized for attenuation correction purposes. FINDINGS: Both stress and rest studies demonstrate grossly normal perfusion throughout the left ventricle. The left ventricle is normal in size. Gated images demonstrate normal LV wall motion with a post-stress LV EF estimated at 47%. Attenuation correction CT images demonstrate no gross anatomic abnormalities. IMPRESSION: 1. Negative myocardial perfusion study without evidence of inducible myocardial ischemia or prior infarction. 2. The left ventricle is normal in size. 3. Normal LV wall motion with a post-stress LV EF estimated at 47%. I personally reviewed the images/study and I agree with the findings as stated. This study was interpreted at [place], [place]. MACRO: None Signed by: Nasrin Jeffery 09/24/2024 1:00 PM Dictation workstation: [id number] [facility] No Panel Informationon 09-24 [place] [address] [phone], Nuclear Pharmacologic Stress Test Patient Name: JACK SPRINGER Ordering Provider: [id number] BRADY Study Date: 09/24/2024 Reading Physician: Mainor Brady MD MRN/PID: [id number] Supervising Physician: Mainor Brady MD Fellow: Date of /Age: 3 1960 / 63 years Fellow: Gender: M Nurse: N/A Admit Date: 09/24/2024 Para Machine Operator: Admission Status: Outpatient Manager Online: N/A Height: 173.00 cm Technologist: Millicent Richards RRT Weight: 114.00 kg Additional Staff: BSA: 2.25 m2 BMI: 38.09 kg/m2 Patient Location: [facility] Stress Lab Study Type: CARDIOLOGY INTERPRETATION OF NUCLEAR STRESS Diagnosis/ICD: Abnormal findings on diagnostic imaging of heart and coronary circulation-R93.1 Indication: Dyspnea, Hypertension and ELEVATED CACS, HLD CPT Codes: Stress Test Interpretation-[id number]; Stress Test Supervision-[id number] Falls Risk: Low: Patient has low risk for sustaining a fall; environmental safety interventions in place. Study Details: Correct procedure and correct patient verified verbally and with ID Band checked. Patient History: Hypertension, hyperlipidemia, dyspnea and ELEVATED CACS. Allergies: STATINS. Smoker: Former. Diabetes: No. BMI: Obese >30. Medications: METOPROLOL. The patient did not take medications as prescribed. Patient Performance: Patient received a total of 0.4 mg of Regadenoson at 10:53:17 AM. Patient received a total of 34 mCi of Myoview at 10:53:51 AM. The resting blood pressure was 180/87 mmHg with a heart rate of 55 bpm. The patient developed no symptoms during the stress exam. The symptoms resolved with rest 4 minutes into recovery. The blood pressure response was hypertensive. The test was terminated due to: completed lab protocol. Baseline ECG: Resting ECG showed sinus bradycardia with normal tracing. Stress Stage Data: + +--+--- ---+-------+ HR Sys BP Brown BP + +--+--- ---+-------+ Baseline Resting 55 180 87 + +--+--- ---+-------+ Stage 1/2 53 + +--+--- ---+-------+ Stage I 75 151 86 + +--+--- ---+-------+ Recovery ECG: Recovery ECG showed normal sinus rhythm. The heart rate recovery was normal. + +--+------+ -------+ HR Sys BP Brown BP + +--+------+ -------+ Recovery I 78 + +--+------+ -------+ Recovery II 74 161 93 + +--+------+ -------+ Recovery III 64 + +--+------+ -------+ Recovery IV 60 156 92 + +--+------+ -------+ Summary: 1. Baseline EKG showing sinus bradycardia rhythm with no resting ST-T segment changes. 2. With regadenoson infusion, there are no ST-T segment changes suggestive of ischemia. No sustained ventricular arrhythmias are seen. 3. Regadenoson stress EKG is negative for ischemia. 4. Adequate level of stress achieved. 5. Nuclear image results are reported separately. [id number] Brady MD Electronically signed on 09/24/2024 at 4:45:58 PM Final Olu Wright MD - 09/24/2024 [place] [address] ext-[phone], Nuclear Pharmacologic Stress Test Patient Name: JACK SPRINGER Ordering Provider: [id number] BRADY Study Date: 09/24/2024 Reading Physician: Mainor Brady MD MRN/PID: [id number] Supervising Physician: Mainor Brady MD Fellow: Date of /Age: 3 1960 / 63 years Fellow: Gender: M Nurse: N/A Admit Date: 09/24/2024 Para Machine Operator: Admission Status: Outpatient Manager Online: N/A Height: 173.00 cm Technologist: Millicent Richards RRT Weight: 114.00 kg Additional Staff: BSA: 2.25 m2 BMI: 38.09 kg/m2 Patient Location: [facility] Stress Lab Study Type: CARDIOLOGY INTERPRETATION OF NUCLEAR STRESS Diagnosis/ICD: Abnormal findings on diagnostic imaging of heart and coronary circulation-R93.1 Indication: Dyspnea, Hypertension and ELEVATED CACS, HLD CPT Codes: Stress Test Interpretation-51856; Stress Test Supervision-[id number] Falls Risk: Low: Patient has low risk for sustaining a fall; environmental safety interventions in place. Study Details: Correct procedure and correct patient verified verbally and with ID Band checked. Patient History: Hypertension, hyperlipidemia, dyspnea and ELEVATED CACS. Allergies: STATINS. Smoker: Former. Diabetes: No. BMI: Obese >30. Medications: METOPROLOL. The patient did not take medications as prescribed. Patient Performance: Patient received a total of 0.4 mg of Regadenoson at 10:53:17 AM. Patient received a total of 34 mCi of Myoview at 10:53:51 AM. The resting blood pressure was 180/87 mmHg with a heart rate of 55 bpm. The patient developed no symptoms during the stress exam. The symptoms resolved with rest 4 minutes into recovery. The blood pressure response was hypertensive. The test was terminated due to: completed lab protocol. Baseline ECG: Resting ECG showed sinus bradycardia with normal tracing. Stress Stage Data: + +--+--- ---+-------+ HR Sys BP Brown BP + +--+--- ---+-------+ Baseline Resting 55 180 87 + +--+--- ---+-------+ Stage 1/2 53 + +--+--- ---+-------+ Stage I 75 151 86 + +--+--- ---+-------+ Recovery ECG: Recovery ECG showed normal sinus rhythm. The heart rate recovery was normal. + +--+------+ -------+ HR Sys BP Brown BP + +--+------+ -------+ Recovery I 78 + +--+------+ -------+ Recovery II 74 161 93 + +--+------+ -------+ Recovery III 64 + +--+------+ -------+ Recovery IV 60 156 92 + +--+------+ -------+ Summary: 1. Baseline EKG showing sinus bradycardia rhythm with no resting ST-T segment changes. 2. With regadenoson infusion, there are no ST-T segment changes suggestive of ischemia. No sustained ventricular arrhythmias are seen. 3. Regadenoson stress EKG is negative for ischemia. 4. Adequate level of stress achieved. 5. Nuclear image results are reported separately. [id number] Olu Brady MD Electronically signed on 09/24/2024 at 4:45:58 PM Final [facility] Work Phone: [facility] Work Phone: TRANSTHORACIC ECHO (TTE) [facility] TRANSTHORACIC ECHO (TTE) [place] [address] ext-[phone], TRANSTHORACIC ECHOCARDIOGRAM REPORT [facility] Physician: [id number] Lorenzo Corrales MD Study Date: 09/24/2024 Ordering Provider: [id number] OLU BRADY MRN/PID: [id number] Fellow: Nurse: Monet Calix RN Date of /Age: 3 1960 Manager Online: BOWEN Oliver RVT Gender Assigned at M Additional Staff: : Height: 172.72 cm Admit Date: Weight: 111.13 kg Admission Status: Outpatient BSA / BMI: 2.23 m2 / 37.25 Department Location: [facility] Echo Lab kg/m2 Blood Pressure: 150 /89 mmHg Study Type: TRANSTHORACIC ECHO (TTE) COMPLETE Diagnosis/ICD: Abnormal findings on diagnostic imaging of heart and coronary circulation-R93.1 Indication: Elevated Ca score CPT Codes: Echo Complete w Full Doppler-44516 Patient History: Pertinent History: No previous echo. Study Detail: The following Echo studies were performed: 2D, M-Mode, Doppler and color flow. Definity used as a contrast agent for endocardial border definition. Total contrast used for this procedure was 2 mL via IV push. A bubble study was not performed. The patient was awake. PHYSICIAN INTERPRETATION: Left Ventricle: Left ventricular ejection fraction is normal, by visual estimate at 60-65%. There are no regional wall motion abnormalities. The left ventricular cavity size is normal. There is mild increased septal and mildly increased posterior left ventricular wall thickness. There is left ventricular concentric remodeling. Spectral Doppler shows a Grade I (impaired relaxation pattern) of left ventricular diastolic filling with normal left atrial filling pressure. Left Atrium: The left atrial size is normal. A bubble study using agitated saline was not performed. Right Ventricle: The right ventricle is normal in size. There is normal right ventricular global systolic function. Right Atrium: The right atrial size is normal. Aortic Valve: The aortic valve was not well visualized. The aortic valve dimensionless index is 0.76. There is no evidence of aortic valve regurgitation. The peak instantaneous gradient of the aortic valve is 9 mmHg. The mean gradient of the aortic valve is 4 mmHg. Mitral Valve: The mitral valve is normal in structure. There is no evidence of mitral valve regurgitation. Tricuspid Valve: The tricuspid valve is structurally normal. No evidence of tricuspid regurgitation. Pulmonic Valve: The pulmonic valve is structurally normal. There is no indication of pulmonic valve regurgitation. Pericardium: No pericardial effusion noted. Aorta: The aortic root is normal. CONCLUSIONS: 1. Left ventricular ejection fraction is normal, by visual estimate at 60-65%. 2. Spectral Doppler shows a Grade I (impaired relaxation pattern) of left ventricular diastolic filling with normal left atrial filling pressure. 3. There is normal right ventricular global systolic function. QUANTITATIVE DATA SUMMARY: 2D MEASUREMENTS: Normal Ranges: Ao Root d: 2.90 cm (2.0-3.7cm) LAs: 2.90 cm (2.7-4.0cm) IVSd: 1.14 cm (0.6-1.1cm) LVPWd: 1.13 cm (0.6-1.1cm) LVIDd: 3.69 cm (3.9-5.9cm) LVIDs: 2.44 cm LV Mass Index: 60.6 g/m2 LVEDV Index: 67.28 ml/m2 LV % FS 33.9 % LEFT ATRIUM: Normal Ranges: LA Vol A4C: 42.5 ml (22+/-6mL/m2) LA Vol A2C: 60.5 ml LA Vol BP: 51.7 ml LA Vol Index A4C: 19.1ml/m2 LA Vol Index A2C: 27.1 ml/m2 LA Vol Index BP: 23.2 ml/m2 LA Area A4C: 16.3 cm2 LA Area A2C: 19.8 cm2 LA Major [place] A4C: 5.3 cm LA Major [place] A2C: 5.5 cm LA Volume Index: 27.4 ml/m2 LA Vol A4C: 40.8 ml LA Vol A2C: 61.2 ml LA Vol Index BSA: 22.9 ml/m2 M-MODE MEASUREMENTS: Normal Ranges: AoV Exc: 1.50 cm (1.5-2.5cm) AORTA MEASUREMENTS: Normal Ranges: AoV Exc: 1.50 cm (1.5-2.5cm) LV SYSTOLIC FUNCTION: Normal Ranges: EF-A4C View: 56 % (>=55%) EF-A2C View: 71 % EF-Biplane: 66 % EF-Visual: 63 % LV EF Reported: 63 % LV DIASTOLIC FUNCTION: Normal Ranges: MV Peak E: 0.94 m/s (0.7-1.2 m/s) MV Peak A: 0.90 m/s (0.42-0.7 m/s) E/A Ratio: 1.04 (1.0-2.2) MV e' 0.106 m/s (>8.0) MV lateral e' 0.14 m/s MV medial e' 0.08 m/s E/e' Ratio: 8.82 (<8.0) MITRAL VALVE: Normal Ranges: MV DT: 275 msec (150-240msec) MITRAL INSUFFICIENCY: Normal Ranges: MR Vmax: 319.00 cm/s AORTIC VALVE: Normal Ranges: AoV Vmax: 1.46 m/s (<=1.7m/s) AoV Peak P.5 mmHg (<20mmHg) AoV Mean P.0 mmHg (1.7-11.5mmHg) LVOT Max Juanjo: 1.17 m/s (<=1.1m/s) AoV VTI: 31.30 cm (18-25cm) LVOT VTI: 23.80 cm LVOT Diameter: 1.80 cm (1.8-2.4cm) AoV Area, VTI: 1.93 cm2 (2.5-5.5cm2) AoV Area,Vmax: 2.04 cm2 (2.5-4.5cm2) AoV Dimensionless Index: 0.76 RIGHT VENTRICLE: RV Basal 3.59 cm RV Mid 2.50 cm RV Major 6.8 cm TAPSE: 21.2 mm TRICUSPID VALVE/RVSP: Normal Ranges: Peak TR Velocity: 2.62 m/s RV Syst Pressure: 30 mmHg (< 30mmHg) PULMONIC VALVE: (more content not included)... Normal [facility] US Heart TransthoracicOrdere d By: Lorenzo Corrales on 09-24-2024 Aortic Valve Area by Continuity of Peak Velocity 2.04 cm2 [facility] Work Phone: [phone] Aortic Valve Area by Continuity of VTI 1.93 cm2 [facility] Work Phone: 75 AV mn grad 4 mmHg [facility] Work Phone: AV pk grad 9 mmHg [facility] Work Phone: 75 AV pk juanjo 1.46 m/s [facility] Work Phone: Body surface area Derived from formula 2.31 m2 [facility] Work Phone: LA vol index A/L 23.2 ml/m2 [facility] Work Phone: 75 LV A4C EF 56 [facility] Work Phone: 75 LV Biplane EF 66 % [facility] Work Phone: [phone] LV EF 63 % [facility] Work Phone: [phone] LVIDd 3.69 cm [facility] Work Phone: [phone] LVOT diam 1.8 cm [facility] Work Phone: [phone] MV E/A ratio 1.04 [facility] Work Phone: [phone] RVSP 30.5 mmHg [facility] Work Phone: [phone] Tricuspid annular plane systolic excursion 2.1 cm [facility] Work Phone: [phone] [facility] Work Phone: [phone] [place] [address] ext-[phone], TRANSTHORACIC ECHOCARDIOGRAM REPORT Patient Name: JACK SPRINGER Reading Physician: [id number] Lorenzo Corrales MD Study Date: 09/24/2024 Ordering Provider: [id number] OLU BRADY MRN/PID: [id number] Fellow: Nurse: Monet Calix RN Date of /Age: 3 1960 Manager Online: BOWEN Oliver RVT Gender Assigned at M Additional Staff: : Height: 172.72 cm Admit Date: Weight: 111.13 kg Admission Status: Outpatient BSA / BMI: 2.23 m2 / 37.25 Department Location: [facility] Echo Lab kg/m2 Blood Pressure: 150 /89 mmHg Study Type: TRANSTHORACIC ECHO (TTE) COMPLETE Diagnosis/ICD: Abnormal findings on diagnostic imaging of heart and coronary circulation-R93.1 Indication: Elevated Ca score CPT Codes: Echo Complete w Full Doppler-31799 Patient History: Pertinent History: No previous echo. Study Detail: The following Echo studies were performed: 2D, M-Mode, Doppler and color flow. Definity used as a contrast agent for endocardial border definition. Total contrast used for this procedure was 2 mL via IV push. A bubble study was not performed. The patient was awake. PHYSICIAN INTERPRETATION: Left Ventricle: Left ventricular ejection fraction is normal, by visual estimate at 60-65%. There are no regional wall motion abnormalities. The left ventricular cavity size is normal. There is mild increased septal and mildly increased posterior left ventricular wall thickness. There is left ventricular concentric remodeling. Spectral Doppler shows a Grade I (impaired relaxation pattern) of left ventricular diastolic filling with normal left atrial filling pressure. Left Atrium: The left atrial size is normal. A bubble study using agitated saline was not performed. Right Ventricle: The right ventricle is normal in size. There is normal right ventricular global systolic function. Right Atrium: The right atrial size is normal. Aortic Valve: The aortic valve was not well visualized. The aortic valve dimensionless index is 0.76. There is no evidence of aortic valve regurgitation. The peak instantaneous gradient of the aortic valve is 9 mmHg. The mean gradient of the aortic valve is 4 mmHg. Mitral Valve: The mitral valve is normal in structure. There is no evidence of mitral valve regurgitation. Tricuspid Valve: The tricuspid valve is structurally normal. No evidence of tricuspid regurgitation. Pulmonic Valve: The pulmonic valve is structurally normal. There is no indication of pulmonic valve regurgitation. Pericardium: No pericardial effusion noted. Aorta: The aortic root is normal. CONCLUSIONS: 1. Left ventricular ejection fraction is normal, by visual estimate at 60-65%. 2. Spectral Doppler shows a Grade I (impaired relaxation pattern) of left ventricular diastolic filling with normal left atrial filling pressure. 3. There is normal right ventricular global systolic function. QUANTITATIVE DATA SUMMARY: 2D MEASUREMENTS: Normal Ranges: Ao Root d: 2.90 cm (2.0-3.7cm) LAs: 2.90 cm (2.7-4.0cm) IVSd: 1.14 cm (0.6-1.1cm) LVPWd: 1.13 cm (0.6-1.1cm) LVIDd: 3.69 cm (3.9-5.9cm) LVIDs: 2.44 cm LV Mass Index: 60.6 g/m2 LVEDV Index: 67.28 ml/m2 LV % FS 33.9 % LEFT ATRIUM: Normal Ranges: LA Vol A4C: 42.5 ml (22+/-6mL/m2) LA Vol A2C: 60.5 ml LA Vol BP: 51.7 ml LA Vol Index A4C: 19.1ml/m2 LA Vol Index A2C: 27.1 ml/m2 LA Vol Index BP: 23.2 ml/m2 LA Area A4C: 16.3 cm2 LA Area A2C: 19.8 cm2 LA Major [place] A4C: 5.3 cm LA Major [place] A2C: 5.5 cm LA Volume Index: 27.4 ml/m2 LA Vol A4C: 40.8 ml LA Vol A2C: 61.2 ml LA Vol Index BSA: 22.9 ml/m2 M-MODE MEASUREMENTS: Normal Ranges: AoV Exc: 1.50 cm (1.5-2.5cm) AORTA MEASUREMENTS: Normal Ranges: AoV Exc: 1.50 cm (1.5-2.5cm) LV SYSTOLIC FUNCTION: Normal Ranges: EF-A4C View: 56 % (>=55%) EF-A2C View: 71 % EF-Biplane: 66 % EF-Visual: 63 % LV EF Reported: 63 % LV DIASTOLIC FUNCTION: Normal Ranges: MV Peak E: 0.94 m/s (0.7-1.2 m/s) MV Peak A: 0.90 m/s (0.42-0.7 m/s) E/ (more content not included)... Lorenzo Gates MD - 09/24/2024 [place] [address] ext-[phone], TRANSTHORACIC ECHOCARDIOGRAM REPORT Patient Name: JACK Enrique Physician: [id number] Lorenzo Corrales MD Study Date: 09/24/2024 Ordering Provider: [id number] OLU BRADY MRN/PID: [id number] Fellow: Nurse: Monet Calix RN Date of /Age: 3 1960 Manager Online: Payton LUCIANOT, BOWEN Gender Assigned at M Additional Staff: : Height: 172.72 cm Admit Date: Weight: 111.13 kg Admission Status: Outpatient BSA / BMI: 2.23 m2 / 37.25 Department Location: [facility] Echo Lab kg/m2 Blood Pressure: 150 /89 mmHg Study Type: TRANSTHORACIC ECHO (TTE) COMPLETE Diagnosis/ICD: Abnormal findings on diagnostic imaging of heart and coronary circulation-R93.1 Indication: Elevated Ca score CPT Codes: Echo Complete w Full Doppler-86073 Patient History: Pertinent History: No previous echo. Study Detail: The following Echo studies were performed: 2D, M-Mode, Doppler and color flow. Definity used as a contrast agent for endocardial border definition. Total contrast used for this procedure was 2 mL via IV push. A bubble study was not performed. The patient was awake. PHYSICIAN INTERPRETATION: Left Ventricle: Left ventricular ejection fraction is normal, by visual estimate at 60-65%. There are no regional wall motion abnormalities. The left ventricular cavity size is normal. There is mild increased septal and mildly increased posterior left ventricular wall thickness. There is left ventricular concentric remodeling. Spectral Doppler shows a Grade I (impaired relaxation pattern) of left ventricular diastolic filling with normal left atrial filling pressure. Left Atrium: The left atrial size is normal. A bubble study using agitated saline was not performed. Right Ventricle: The right ventricle is normal in size. There is normal right ventricular global systolic function. Right Atrium: The right atrial size is normal. Aortic Valve: The aortic valve was not well visualized. The aortic valve dimensionless index is 0.76. There is no evidence of aortic valve regurgitation. The peak instantaneous gradient of the aortic valve is 9 mmHg. The mean gradient of the aortic valve is 4 mmHg. Mitral Valve: The mitral valve is normal in structure. There is no evidence of mitral valve regurgitation. Tricuspid Valve: The tricuspid valve is structurally normal. No evidence of tricuspid regurgitation. Pulmonic Valve: The pulmonic valve is structurally normal. There is no indication of pulmonic valve regurgitation. Pericardium: No pericardial effusion noted. Aorta: The aortic root is normal. CONCLUSIONS: 1. Left ventricular ejection fraction is normal, by visual estimate at 60-65%. 2. Spectral Doppler shows a Grade I (impaired relaxation pattern) of left ventricular diastolic filling with normal left atrial filling pressure. 3. There is normal right ventricular global systolic function. QUANTITATIVE DATA SUMMARY: 2D MEASUREMENTS: Normal Ranges: Ao Root d: 2.90 cm (2.0-3.7cm) LAs: 2.90 cm (2.7-4.0cm) IVSd: 1.14 cm (0.6-1.1cm) LVPWd: 1.13 cm (0.6-1.1cm) LVIDd: 3.69 cm (3.9-5.9cm) LVIDs: 2.44 cm LV Mass Index: 60.6 g/m2 LVEDV Index: 67.28 ml/m2 LV % FS 33.9 % LEFT ATRIUM: Normal Ranges: LA Vol A4C: 42.5 ml (22+/-6mL/m2) LA Vol A2C: 60.5 ml LA Vol BP: 51.7 ml LA Vol Index A4C: 19.1ml/m2 LA Vol Index A2C: 27.1 ml/m2 LA Vol Index BP: 23.2 ml/m2 LA Area A4C: 16.3 cm2 LA Area A2C: 19.8 cm2 LA Major [place] A4C: 5.3 cm LA Major [place] A2C: 5.5 cm LA Volume Index: 27.4 ml/m2 LA Vol A4C: 40.8 ml LA Vol A2C: 61.2 ml LA Vol Index BSA: 22.9 ml/m2 M-MODE MEASUREMENTS: Normal Ranges: AoV Exc: 1.50 cm (1.5-2.5cm) AORTA MEASUREMENTS: Normal Ranges: AoV Exc: 1.50 cm (1.5-2.5cm) LV SYSTOLIC FUNCTION: Normal Ranges: EF-A4C View: 56 % (>=55%) EF-A2C View: 71 % EF-Biplane: 66 % EF-Visual: 63 % LV EF Reported: 63 % LV DIASTOLIC FUNCTION: Normal Ranges: MV Peak E: 0.94 m/s (0.7-1.2 m/s) MV Peak A: 0.90 m/s (0.42-0.7 m/s) E/A Ratio: 1.04 (1.0-2.2) MV e' 0.106 m/s (>8.0) MV lateral e' 0.14 m/s MV medial e' 0.08 m/s E/e' Ratio: 8.82 (<8.0) MITRAL VALVE: Normal Ranges: MV DT: 275 msec (150-240msec) MITRAL INSUFFICIENCY: Normal Ranges: MR Vmax: 319.00 cm/s AORTIC VALVE: Normal Ranges: AoV Vmax: 1.46 m/s (<=1.7m/s) AoV Peak P.5 mmHg (<20mmHg) AoV Mean P.0 mmHg (1.7-11.5mmHg) LVOT Max Juanjo: 1.17 m/s (<=1.1m/s) AoV VTI: 31.30 cm (18-25cm) LVOT VTI: 23.80 cm LVOT Diameter: 1.80 cm (1.8-2.4cm) AoV Area, VTI: 1.93 cm2 (2.5-5.5cm2) AoV Area,Vmax: 2.04 cm2 (2.5-4.5cm2) AoV Dimensionless Index: 0.76 RIGHT VENTRICLE: RV Basal 3.59 cm RV Mid 2.50 cm RV Major 6.8 cm TAPSE: 21.2 mm TRICUSPID VA (more content not included)... [facility] Work Phone: ECG 12 lead (Clinic Performe d)on 08-31-2024 EKG shows normal sin us rhythm with no signs of acute ischemic changes. [facility] Work Phone: CBC panel Auto (Bld)on 04-27 Erythrocyte distribution width (RBC) [Ratio] 13.8 % Normal 11.5-14.5 [facility] Comment on above: Performed By: #### 5 8410-2 #### TRINA QUIÑONEZ ([id number]) [facility] ([facility]) [address] [place] [address]657 Hematocrit (Bld) [Volume fraction] 47.2 % Normal 41.0-52.0 [facility] Comment on above: Performed By: #### 5 8410-2 #### TRINA QUIÑONEZ ([id number]) [facility] ([facility]) [address] [place] [address] 01576 Hemoglobin (Bld) [Mass/Vol] 15.0 g/dL Normal 13.5-17.5 [facility] Comment on above: Performed By: #### 5 8410-2 #### TRINA QUIÑONEZ ([id number]) [facility] ([facility]) [address] [place] [address] 20310 MCH (RBC) [Entitic mass] 28.4 pg Normal 26.0-34.0 [facility] Comment on above: Performed By: #### 5 8410-2 #### TRINA QUIÑONEZ ([id number]) [facility] ([facility]) [address] [place] [address] 42501 MCHC (RBC) [Mass/Vol] 31.8 g/dL Low 32.0-36.0 [facility] Comment on above: Performed By: #### 5 8410-2 #### TRINA QUIÑONEZ ([id number]) [facility] ([facility]) [address] [place] [address] 48018 MCV (RBC) [Entitic vol] 89 fL Normal 80-100 [facility] Comment on above: Performed By: #### 5 8410-2 #### TRINA QUIÑONEZ ([id number]) [facility] ([facility]) [address] [place] [address] 16409 Nucleated RBC/100 WBC (Bld) [Ratio] 0.0 /100 WBCs Normal 0.0-0.0 [facility] Comment on above: Performed By: #### 5 8410-2 #### TRINA QUIÑONEZ ([id number]) [facility] ([facility]) [address] [place] [address] 20005 Platelets (Bld) [#/Vol] 202 x10*3/uL Normal 150-450 [facility] Comment on above: Performed By: #### 5 8410-2 #### TRINA QUIÑONEZ ([id number]) [facility] ([facility]) [address] [place] [address] 01970 RBC (Bld) [#/Vol] 5.28 x10*6/uL Normal 4.50-5.90 [facility] Comment on above: Performed By: #### 5 8410-2 #### TRINA QUIÑONEZ ([id number]) [facility] ([facility]) [address] [place] [address] 70750 WBC (Bld) [#/Vol] 5.4 x10*3/uL Normal 4.4-11.3 [facility] Comment on above: Performed By: #### 5 8410-2 #### TRINA QUIÑONEZ ([id number]) [facility] ([facility]) [address] [place] [address] CARDIAC SCORING WO IV CON TRASTon 04-27-2024 CT CARDIAC SCORING WO IV CONTRAST Interpreted By: Suhail Villalba, STUDY: CT CARDIAC SCORING WO IV CONTRAST; 04/27/2024 8:49 am INDICATION: Signs/Symptoms:See dx. ,Z13.6 Encounter for screening for cardiovascular disorders COMPARISON: None. ACCESSION NUMBER(S): [id number] ORDERING CLINICIAN: OSMAN MORIN TECHNIQUE: Using prospective ECG gating, CT scan of the coronary arteries was performed without intravenous contrast. Coronary calcium scoring was performed according to the method of Agatston. FINDINGS: The score and distribution of calcium in the coronary arteries is as follows: LM 0 LAD 161.67 LCx 17.23 RCA 300.82 Total 479.72 The visualized mid/lower ascending thoracic aorta measures 3.3 cm in diameter. The heart is normal in size. No pericardial effusion is present. No gross evidence of mediastinal or hilar lymphadenopathy or masses is identified. Mild scarring in the lingular segment of the left upper lobe. Expanded. The visualized subdiaphragmatic structures appear intact. IMPRESSION: 1. Coronary artery calcium score of 479.72. *Coronary artery calcium scoring may be helpful in predicting the risk for future coronary heart disease events. According to the [employer] Clinical Expert Consensus Task Force, such testing provides important prognostic information in patients with more than one coronary heart disease risk factor. The coronary artery calcium score correlates with the annual risk of a non-fatal myocardial infarction or coronary heart disease . Coronary artery score Annual Risk 0-99 0.4% 100-399 1.3% >400 2.4% These three breakpoints correspond to lower, intermediate and high risk states for future coronary events. Such information should be used, along with appropriate clinical judgment, to make decisions regarding the intensity of risk factor management strategies to treat blood lipids and to modify other non-lipid coronary risk factors. Reference: Greeley P et al. Circulation. 2007; 115:402-426 MACRO: None Signed by: Suhail Villalba 04/30/2024 9:39 AM Dictation workstation: [id number] [facility] Calcidiolon 04-27-2024 25-hydroxyvitamin D3 [Mass/Vol] 17 ng/mL Low 30-100 [facility] Comment on above: Order Comment: Defic iency: < 20 ng/ml Insufficiency: 20-29 ng/ml Sufficiency: 30-100 ng/ml This assay accurately quantifies the sum of Vitamin D3, 25-Hydroxy and Vitamin D2,25-Hydroxy. Performed By: #### 1 989-3 #### TRINA QUIÑONEZ ([id number]) [facility] ([facility]) [address] [place] [address] Cobalaminson 04-27-2024 Cobalamin (Vitamin B12) [Mass/Vol] 278 pg/mL Normal 211-911 [facility] Comment on above: Performed By: #### 2 132-9 #### TRINA QUIÑONEZ ([id number]) [facility] ([facility]) [address] [place] [address] 91422 Comprehensive metabolic 2000 panelon 04-27-2024 Albumin BCP dye [Mass/Vol] 4.1 g/dL Normal 3.4-5.0 [facility] Comment on above: Performed By: #### 2 4323-8 #### TRINA QUIÑONEZ ([id number]) [facility] ([facility]) [address] [place] [address] 05473 ALP [Catalytic activity/Vol] 45 U/L Normal 33-136 [facility] Comment on above: Performed By: #### 2 4323-8 #### TRINA QUIÑONEZ ([id number]) [facility] ([facility]) [address] [place] [address] 25806 ALT With P-5'-P [Catalytic activity/Vol] 20 U/L Normal 10-52 [facility] Comment on above: Result Comment: Cat ents treated with Sulfasalazine may generate falsely decreased results for ALT. Performed By: #### 2 4323-8 #### TRINA QUIÑONEZ ([id number]) [facility] ([facility]) [address] [place] [address] 24117 Anion gap [Moles/Vol] 8 mmol/L Low 10-20 [facility] Comment on above: Performed By: #### 2 4323-8 #### TRINA QUIÑONEZ ([id number]) [facility] ([facility]) [address] [place] [address] 98173 AST With P-5'-P [Catalytic activity/Vol] 21 U/L Normal 9-39 [facility] Comment on above: Performed By: #### 2 4323-8 #### TRINA QUIÑONEZ ([id number]) [facility] ([facility]) [address] [place] [address] Bilirubin [Mass/Vol] 0.5 mg/dL Normal 0.0-1.2 [facility] Comment on above: Performed By: #### 2 4323-8 #### TRINA QUIÑONEZ ([id number]) [facility] ([facility]) [address] [place] [address] 50400 Calcium [Mass/Vol] 9.1 mg/dL Normal 8.6-10.3 [facility] Comment on above: Performed By: #### 2 4323-8 #### TRINA QUIÑONEZ ([id number]) [facility] ([facility]) [address] [place] [address] 50068 Chloride [Moles/Vol] 105 mmol/L Normal 98-107 [facility] Comment on above: Performed By: #### 2 4323-8 #### TRINA QUIÑONEZ ([id number]) [facility] ([facility]) [address] [place] [address] CO2 [Moles/Vol] 28 mmol/L Normal 21-32 [facility] Comment on above: Performed By: #### 2 4323-8 #### TRINA QUIÑONEZ ([id number]) [facility] ([facility]) [address] [place] [address] 62807 Creatinine [Mass/Vol] 0.87 mg/dL Normal 0.50-1.30 [facility] Comment on above: Performed By: #### 2 4323-8 #### TRINA QUIÑONEZ ([id number]) [facility] ([facility]) [address] [place] [address] 27615 GFR/1.73 sq M.predicted MDRD (S/P/Bld) [Vol rate/Area] mL/min/{1.73_m2} Normal >60 [facility] Comment on above: Result Comment: Calc ulations of estimated GFR are performed using the 2020 CKD-EPI Study Refit equation without the race variable for the IDMS-Traceable creatinine methods. https://jasn.asnjournals.org/content//ASN.76457 31843 Performed By: #### 2 4323-8 #### TRINA QUIÑONEZ ([id number]) [facility] ([facility]) [address] [place] [address] 27577 Glucose [Mass/Vol] 105 mg/dL High 74-99 [facility] Comment on above: Performed By: #### 2 4323-8 #### TRINA QUIÑONEZ ([id number]) [facility] ([facility]) [address] [place] [address] 00559 Potassium [Moles/Vol] 4.4 mmol/L Normal 3.5-5.3 [facility] Comment on above: Performed By: #### 2 4323-8 #### TRINA QUIÑONEZ ([id number]) [facility] ([facility]) [address] [place] [address] 02532 Protein [Mass/Vol] 6.3 g/dL Low 6.4-8.2 [facility] Comment on above: Performed By: #### 2 4323-8 #### TRINA QUIÑONEZ ([id number]) [facility] ([facility]) [address] [place] [address] 10368 Sodium [Moles/Vol] 137 mmol/L Normal 136-145 [facility] Comment on above: Performed By: #### 2 4323-8 #### TRINA QUIÑONEZ ([id number]) [facility] ([facility]) [address] [place] [address] 82416 Urea nitrogen [Mass/Vol] 16 mg/dL Normal 6-23 [facility] Comment on above: Performed By: #### 2 4323-8 #### TRINA QUIÑONEZ ([id number]) [facility] ([facility]) [address] [place] [address] 81773 HbA1c (Bld) [Mass fraction]o n 04-27-2024 Average glucose Estimated from glycated hemoglobin (Bld) [Mass/Vol] 114 mg/dL Normal Not Established [facility] Comment on above: Order Comment: Diagn osis of Diabetes-Adults Non-Diabetic: < or = 5.6% Increased risk for developing diabetes: 5.7-6.4% Diagnostic of diabetes: > or = 6.5% Performed By: #### 4 548-4 #### GAVIOTA Stout ([id number]) [facility] ([facility]) [address] [place] [address] Hemoglobin A1c/Hemoglobin.to westley 04-27-2024 HbA1c (Bld) [Mass fraction] 5.6 % Normal see below [facility] Comment on above: Order Comment: Diagn osis of Diabetes-Adults Non-Diabetic: < or = 5.6% Increased risk for developing diabetes: 5.7-6.4% Diagnostic of diabetes: > or = 6.5% Performed By: #### 4 548-4 #### GAVIOTA Stout ([id number]) [facility] ([facility]) [address] [place] [address] Lipid 1996 [facility] Cholesterol [Mass/Vol] 242 mg/dL High 0-199 Un [facility] Comment on above: Result Comment: Age Desirable Borderline High High 0-19 Y 0 - 169 170 - 199 >/= 200 20-24 Y 0 - 189 190 - 224 >/= 225 >24 Y 0 - 199 200 - 239 >/= 240 All ranges are based on fasting samples. Specific therapeutic targets will vary based on patient-specific cardiac risk. Pediatric guidelines reference:Pediatrics 2011, 128(S5).Adult guidelines reference: NCEP ATPIII Guidelines,JULIANNE 2001, 258:2486-97 Venipuncture immediately after or during the administration of Metamizole may lead to falsely low results. Testing should be performed immediately prior to Metamizole dosing. Performed By: #### 2 4331-1 #### TRINA QUIÑONEZ ([id number]) [facility] ([facility]) [address] [place] [address] Cholesterol in HDL [Mass/Vol] 39.0 mg/dL Normal [facility] Comment on above: Result Comment: Age Very Low Low Normal High 0-19 Y < 35 < 40 40-45 ---- 20-24 Y ---- < 40 >45 ---- >24 Y ---- < 40 40-60 >60 Performed By: #### 2 4331-1 #### TRINA QUIÑONEZ ([id number]) [facility] ([facility]) [address] [place] [address] 98271 Cholesterol in LDL [Mass/Vol] 151 mg/dL High <=99 [facility] Comment on above: Result Comment: Near Borderline AGE Desirable Optimal High High Very High 0-19 Y 0 - 109 --- 110-129 >/= 130 ---- 20-24 Y 0 - 119 --- 120-159 >/= 160 ---- >24 Y 0 - 99 100-129 130-159 160-189 >/=190 Performed By: #### 2 4331-1 #### TRINA QUIÑONEZ ([id number]) [facility] ([facility]) [address] [place] [address] 44969 Cholesterol in VLDL [Mass/Vol] 52 mg/dL High 0-40 [facility] Comment on above: Performed By: #### 2 4331-1 #### TRINA QUIÑONEZ ([id number]) [facility] ([facility]) [address] [place] [address] 53246 CHOLESTEROL/HDL RATIO 6.2 Normal [facility] Comment on above: Result Comment: Ref Values Desirable < 3.4 High Risk > 5.0 Performed By: #### 2 4331-1 #### TRINA QUIÑONEZ ([id number]) [facility] ([facility]) [address] [place] [address] 64094 NON HDL CHOLESTEROL 203 mg/dL High 0-149 [facility] Comment on above: Result Comment: Age Desirable Borderline High High Very High 0-19 Y 0 - 119 120 - 144 >/= 145 >/= 160 20-24 Y 0 - 149 150 - 189 >/= 190 ---- >24 Y 30 mg/dL above LDL Cholesterol goal Performed By: #### 2 4331-1 #### TRINA QUIÑONEZ ([id number]) [facility] ([facility]) [address] [place] [address] 05804 Triglyceride [Mass/Vol] 262 mg/dL High 0-149 [facility] Comment on above: Result Comment: Age Desirable Borderline High High Very High 0 D-90 D 19 - 174 ---- ---- ---- 91 D- 9 Y 0 - 74 75 - 99 >/= 100 ---- 10-19 Y 0 - 89 90 - 129 >/= 130 ---- 20-24 Y 0 - 114 115 - 149 >/= 150 ---- >24 Y 0 - 149 150 - 199 200- 499 >/= 500 Venipuncture immediately after or during the administration of Metamizole may lead to falsely low results. Testing should be performed immediately prior to Metamizole dosing. Performed By: #### 2 4331-1 #### TRINA QUIÑONEZ ([id number]) [facility] ([facility]) [address] [place] [address] Prostate specific Agon 04-27 Prostate specific Ag [Mass/Vol] 3.22 ng/mL Normal <=4.00 [facility] Comment on above: Order Comment: The DA requires that the method used for PSA assay be reported to the physician. Values obtained with different assay methods must not be used interchangeably. This test was performed at [facility] using the [employer] PSA assay is a two-site immunoenzymatic sandwich assay. The assay is approved for measurement of prostate-specific antigen (PSA)in serum and may be used in conjunction with a digital rectal examination in men 50 years and older as an aid in detection of prostate cancer. 5-Levfd-ijstwkwvq inhibitors (e.g. Proscar, Finasteride, Avodart, Dutasteride and Joana) for the treatment of BPH have been shown to lower PSA levels by an average of 50% after 6 months of treatment. Performed By: #### 2 857-1 #### TRINA QUIÑONEZ ([id number]) [facility] ([facility]) [address] [place], [place] [address] TSH WITH REFLEX TO FREE T4 I F ABNORMALon 04-27-2024 TSH Qn 2.01 m[IU]/L Normal 0.44-3.98 [facility] Comment on above: Order Comment: TSH t esting is performed using different testing methodology at [facility] than at other [facility]. Direct result comparisons should only be made within the same method. Performed By: #### T HYDS #### MENA OLAMIDE ([id number]) [facility] ([facility]) [address] [place] [address] 94524 BASIC METABOLIC PANELon - Anion gap [Moles/Vol] 12 mmol/L Normal 10 - 20 [facility] Comment on above: Performed By: #### B MP #### [address] [address] Calcium [Mass/Vol] 9.5 mg/dL Normal 8.6 - 10.3 [facility] Comment on above: Performed By: #### B MP #### [address] [address] Chloride [Moles/Vol] 102 mmol/L Normal 98 - 107 [facility] Comment on above: Performed By: #### B MP #### [address] [address] Creatinine [Mass/Vol] 0.83 mg/dL Normal 0.50 - 1.30 [facility] Comment on above: Performed By: #### B MP #### [address] [address] eGFR MALE >90 Normal >90 [facility] Comment on above: Result Comment: CALC ULATIONS OF ESTIMATED GFR ARE PERFORMED USING THE 2020 CKD-EPI STUDY REFIT EQUATION WITHOUT THE RACE VARIABLE FOR THE IDMS-TRACEABLE CREATININE METHODS. https://jasn.asnjournals.org/content/early//ASN.86076 55618 Performed By: #### B MP #### [address] [address] Glucose [Mass/Vol] 116 mg/dL High 74 - 99 [facility] Comment on above: Performed By: #### B MP #### [address] [address] HCO3 (Bld) [Moles/Vol] 27 mmol/L Normal 21 - 32 [facility] Comment on above: Performed By: #### B MP #### [address] [address] Potassium [Moles/Vol] 4.0 mmol/L Normal 3.5 - 5.3 [facility] Comment on above: Performed By: #### B MP #### [address] [address] Sodium [Moles/Vol] 137 mmol/L Normal 136 - 145 [facility] Comment on above: Performed By: #### B MP #### [address] [address] Urea nitrogen [Mass/Vol] 13 mg/dL Normal 6 - 23 [facility] Comment on above: Performed By: #### B MP #### [address] [address] CBCon 11-04-2022 Erythrocyte distribution width (RBC) [Ratio] 14.0 % Normal 11.5 - 14.5 [facility] Comment on above: Performed By: #### C BC #### [address] [address] Hematocrit (Bld) [Volume fraction] 47.4 % Normal 41.0 - 52.0 [facility] Comment on above: Performed By: #### C BC #### [address] [address] Hemoglobin (Bld) [Mass/Vol] 15.2 g/dL Normal 13.5 - 17.5 [facility] Comment on above: Performed By: #### C BC #### [address] [address] MCHC (RBC) [Mass/Vol] 32.1 g/dL Normal 32.0 - 36.0 [facility] Comment on above: Performed By: #### C BC #### [address] [address] MCV (RBC) [Entitic vol] 88 fL Normal 80 - 100 [facility] Comment on above: Performed By: #### C BC #### [address] [address] Platelets (Bld) [#/Vol] 234 10*3/uL Normal 150 - 450 [facility] Comment on above: Performed By: #### C BC #### [place] [id number] RBC 5.37 x10E12/L Normal 4.50 - 5.90 [facility] Comment on above: Performed By: #### C BC #### [address] [address] WBC (Bld) [#/Vol] 10.6 10*3/uL Normal 4.4 - 11.3 [facility] Comment on above: Performed By: #### C BC #### [place] [address] Lab Specimen Source Normal [facility] Comment on above: Performed By: #### C BC #### [place] [address] Performed By: #### B MP #### [place] [id number] CHEST 2 VIEW PA AND LATon CHEST 2 VIEW PA AND LAT Patient Name: JACK SPRINGER STUDY: TH CHEST 2 VIEW PA AND LAT; 11/04/2022 1:21 pm INDICATION: cough/SOB. COMPARISON: 09/01/2021 ACCESSION NUMBER(S): [id number] ORDERING CLINICIAN: OSMAN MORIN FINDINGS: CARDIOMEDIASTINAL SILHOUETTE: Cardiomediastinal silhouette is normal in size and configuration. LUNGS: There are no focal areas of consolidation or pleural effusions noted. ABDOMEN: No remarkable upper abdominal findings. BONES: No acute osseous changes. IMPRESSION: 1. No evidence of acute cardiopulmonary process. Electronically signed by: ELSY COOPER MD Normal [facility] Office Visit (Family Medicin britt)on 07-30-2022 Follow-up visit Diagnoses/Problems HTN (hypertension) (401.9) (I10) Hyperlipidemia (272.4) (E78.5) Moderate obstructive sleep apnea (327.23) (G47.33) SOB (shortness of breath) on exertion (786.05) (R06.02) Class 2 severe obesity with serious comorbidity and body mass index (BMI) of 38.0 to 38.9 in adult (278.01,V85.38) (E66.01,Z68.38) Orders HTN (hypertension) Renew: Metoprolol Succinate ER 100 MG Oral Tablet Extended Release 24 Hour; TAKE 0.5 TABLET Twice daily Follow-up visit in 3 months Outpatient Follow-up Status: Complete Done: [id number] SOB (shortness of breath) on exertion Complete PFT with Pre/Post Bronchodialator; Status:Hold For - Scheduling; Requested for:[id number]; Provider Impressions HTN: He agrees to be compliant with medication. PREDIABETES: Advised exercise and healthy diet. HAYDEN: Denies sleep medicine referral at this time. SOB ON EXERTION: PFTs ordered. Follow up 3 months or sooner prn. Chief Complaint med check, pt was in ER for vertigo. History of Present Illness 61 YOM presents for med check. HTN: Has not been consistently taking his metoprolol, so it ranges up and down at home. No CP/visual changes. HYPERLIPIDEMIA: Lipids slightly elevated 07/02/22. PREDIABETES: A1C 6% 07/02/22. This is normal for him. LEFT KNEE PAIN: 20 years ago had ACL surgery on L knee. Will need surgery eventually, has received gel shots in knee in the past with some success. HAYDEN: Does not wear CPAP. Endorses difficulty sleeping d/t eating late and some joint pain. He does have CPAP at home which he does not use. He will use Tylenol PM with effect. SOB ON EXERTION: Endorses difficulty with SOB on both exertion and at rest occasionally. Recent ER visit 5 days ago for sever vertigo w/some N/V. Stabilized and discharged with Efra maneuver instruction, have performed twice and seems to be helping. Colonoscopy with a few polyps 10/20/21, due again 2026. Will get Shingrix soon. 08/31/22: Patient called and endorsed SE of fatigue/poor sleep w/metoprolol. Would like to switch medication. Will D/C metoprolol, start Rx for 50mg losartan daily. Follow up 2 months for BP check.1 1 Amended By: Osman Morin; Aug 31 2022 8:52 AM ESTReview of Systems Review of Systems: Constitutional: no fever, no unintentional weight change Eye: no recent visual problem Respiratory: some shortness of breath Cardiac: no chest pain GI: no reflux, no nausea, no vomiting, no diarrhea, no constipation, no heartburn, no abdominal pain Neurological: no headache Active Problems Current tear of semilunar cartilage (836.2) (S83.209A) Encounter for prostate cancer screening (V76.44) (Z12.5) HTN (hypertension) (401.9) (I10) Hyperlipidemia (272.4) (E78.5) Moderate obstructive sleep apnea (327.23) (G47.33) Positive colorectal cancer screening using Cologuard test (787.7) (R19.5) Past Medical History History of Positive colorectal cancer screening using Cologuard test (787.7) (R19.5) Resolved Date: 30 Sep 2021 Surgical History History of Meniscus repair Family History Family history of cardiac disorder (V17.49) (Z82.49) Family history of cerebrovascular accident (CVA) (V17.1) (Z82.3) Family history of diabetes mellitus (V18.0) (Z83.3) Family history of hyperlipidemia (V18.19) (Z83.438) Social History Former smoker (V15.82) (Z87.891) No alcohol use Allergies Lipitor Myalgia; Recorded By: Nayely Valdez; 09/18/2019 11:44:17 AM Zocor Myalgia; Recorded By: Nayely Valdez; 09/18/2019 11:44:17 AM Current Meds Medication NameInstructionReason Metoprolol Succinate ER 100 MG Oral Tablet Extended Release 24 HourTAKE 0.5 TABLET Twice dailyHTN (hypertension) Unspecified Medicationstroke screeningHyperlipidemia Vitamin C CAPSTake one tablet once daily Vitals Vital Signs Recorded: [id number] 08:19AM Heart Rate72 Vlsmkfhh917 Fgdkdyrbg29 Height5 ft 8 in Bnqyie053 lb 15.97 oz BMI Tkxkaqfecs07.47 kg/m2 BSA Calculated2.26 Tobacco Useb) No Physical Exam General: Alert and oriented. No acute distress Eye: Normal conjunctiva HENT: Normocephalic, oral mucosa is moist, no pharyngeal erythema, neck supple, no LAD, no thyromegaly Respiratory: Lungs clear to auscultation, respirations not labored Cardiovascular: Normal rate, regular rhythm, no murmur, no gallop, no edema Gastrointestinal: Soft, nontender, normal bowel sounds, nondistended Genitourinary: No costovertebral angle tenderness Integumentary: Warm, dry, pink Psychiatric: Cooperative, good affect, eye contact, judgment, insight, voice 'Scores and Scales' Signatures Electronically signed by : Osman Morin PA-C; Aug 31 2022 8:53AM EST (Author) Normal [employer] Absolute lymphocyte counton 07-27-2022 Lymphocytes Auto (Unsp spec) [#/Vol] 2.03 10*3/uL 0.83-4.51 [facility] Work Phone: Basophil percentageon 2021 Basophils/100 WBC (Bld) 0.6 % 0-1 [facility] Work Phone: Bilirubin [Mass/Vol] 0.20 mg/dL 0.20-1.00 [facility] Work Phone: Comment on above: For patients on eltr ombopag therapy, use of Dimension Frannie TBIL is not recommended. Chloride [Moles/Vol] 106 mmol/L 98-107 [facility] Work Phone: Eosinophils/100 WBC (Bld) 1.3 % 0-5 [facility] Work Phone: Glucose [Mass/Vol] 129 mg/dL 74-106 [facility] Work Phone: Comment on above: Fasting Glucose resu lt greater than or equal to 126 mg/dL suggests DIABETES MELLITUS per A.D.A. criteria. Neutrophils (Bld) [#/Vol] 8.2 10*3/uL 2.0-7.7 [facility] Work Phone: Neutrophils/100 WBC (Bld) 71.8 % 47-70 [facility] Work Phone: Potassium [Moles/Vol] 4.2 mmol/L 3.5-5.1 [facility] Work Phone: Protein [Mass/Vol] 8.3 g/dL 6.4-8.2 [facility] Work Phone: Sodium [Moles/Vol] 139 mmol/L 136-145 [facility] Work Phone: WBC (Bld) [#/Vol] 11.5 10*3/uL 4.4-11.0 [facility] Work Phone: Blood erythrocytes count (nu mber/volume)on 07-27-2022 RBC (Bld) [#/Vol] 5.54 10*6/uL 4.6-6.2 [facility] Work Phone: Blood hemoglobin measurement (mass/volume)on 07-27-2022 Hemoglobin (Bld) [Mass/Vol] 15.6 g/dL 13.0-16.5 [facility] Work Phone: Blood lymphocytes/100 leukoc yteson 07-27-2022 Lymphocytes/100 WBC (Bld) 17.7 % 19-41 [facility] Work Phone: [phone] Blood monocytes/100 leukocyt eson 07-27-2022 Monocytes/100 WBC (Bld) 8.3 % 0-10 [facility] Work Phone: Blood platelet mean volumeon 07-27-2022 Platelet mean volume (Bld) [Entitic vol] 11.1 fL 6.2-12.0 [facility] Work Phone: Determination of erythrocyte mean corpuscular volume (MCV)on 07-27-2022 MCV (RBC) [Entitic vol] 86.6 fL 80-94 [facility] Work Phone: Hematocrit Auto (Bld) [Volum e fraction]on 07-27-2022 Hematocrit (Bld) [Volume fraction] 48.0 % 40-54 [facility] Work Phone: Laboratory - Chemistry and C hemistry - challengeon 07-27-2022 ALP [Catalytic activity/Vol] 61 U/L 45-117 [facility] Work Phone: ALT [Catalytic activity/Vol] 51 U/L 16-61 [facility] Work Phone: [phone] CO2 [Moles/Vol] 30.0 mmol/L 21.0-32.0 [facility] Work Phone: [phone] Globulin (S) [Mass/Vol] 4.2 g/dL 2.2-4.2 [facility] Work Phone: [phone] Urea nitrogen/Creatinine [Mass ratio] 16.5 mg/mg 10-20 [facility] Work Phone: [phone] Laboratory - Hematology and Cell countson 07-27-2022 Erythrocyte distribution width (RBC) [Entitic vol] 42.2 fL 35.1-43.9 [facility] Work Phone: [phone] Erythrocyte distribution width (RBC) [Ratio] 13.3 % 11.6-14.6 [facility] Work Phone: [phone] Immature granulocytes/100 WBC (Bld) 0.300 % 0.0-0.9 [facility] Work Phone: [phone] Comment on above: IG% - Immature Granu locytes (promyelocytes, myelocytes and metamyelocytes) > 1% indicates that a LEFT SHIFT is Present. MCH (RBC) [Entitic mass] 28.2 pg 27.0-32.0 [facility] Work Phone: [phone] Nucleated RBC/100 WBC (Bld) [Ratio] 0 % 0-5 [facility] Work Phone: [phone] MCHC Auto (RBC) [Mass/Vol]on 07-27-2022 MCHC (RBC) [Mass/Vol] 32.5 g/dL 32-36 [facility] Work Phone: [phone] No Panel Informationon 07-27 Estimated Creatinine Clearance Calc 83.52 ml/min [facility] Work Phone: [phone] Estimated GFR (MDRD) Amer 109 mL/min >60 [facility] Work Phone: [phone] Comment on above: GFR Calc Estimated GFR (MDRD) Non-Af Amer 90 mL/min >60 [facility] Work Phone: [phone] Comment on above: Non- GFR Calc Platelets bldon 12-13-2022 Platelets (Bld) [#/Vol] 213 10*3/uL 150-450 [facility] Work Phone: [phone] Serum or plasma albumin oleg urement (mass/volume)on 07-27-2022 Albumin [Mass/Vol] 4.1 g/dL 3.2-5.0 [facility] Work Phone: [phone] Serum or plasma albumin/glob ulin mass ratioon 07-27-2022 Albumin/Globulin [Mass ratio] 1.0 {ratio} 0.9-2.4 [facility] Work Phone: Serum or plasma calcium oleg urement (mass/volume)on 07-27-2022 Calcium [Mass/Vol] 9.4 mg/dL 8.5-10.1 [facility] Work Phone: Serum or plasma creatinine m easurement (mass/volume)on 07-27-2022 Creatinine [Mass/Vol] 0.91 mg/dL 0.70-1.30 [facility] Work Phone: Comment on above: The validity of the calculated GFR & GFRAA in patients over 70 years has not been determined. Clinical correlation is essential. Serum or plasma urea nitroge n measurement (mass/volume)on 07-27-2022 Urea nitrogen [Mass/Vol] 15 mg/dL 7-18 [facility] Work Phone: Thin prep Papanicolaou smear with manual screeningon 07-27-2022 Thin prep Papanicolaou smear with manual screening 32 U/L 15-37 [facility] Work Phone: Thin prep Papanicolaou smear with manual screening 3 5-15 [facility] Work Phone: CBC AND DIFFERENTIALon 07-02 % AUTOMATED IMMATURE GRAN 0.2 % Normal 0.0 - 0.9 [facility] Comment on above: Result Comment: Solange ture Granulocyte Count (IG) includes promyelocytes, myelocytes and metamyelocytes but does not include bands. Percent differential counts (%) should be interpreted in the context of the absolute cell counts (cells/L). Performed By: #### C BCDF #### [address] [address] Basophils (Bld) [#/Vol] 0.04 10*3/uL Normal 0.00 - 0.10 [facility] Comment on above: Performed By: #### C BCDF #### [address] [address] Basophils/100 WBC (Bld) 0.7 % Normal 0.0 - 2.0 [facility] Comment on above: Performed By: #### C BCDF #### [address] [address] Eosinophils (Bld) [#/Vol] 0.14 10*3/uL Normal 0.00 - 0.70 [facility] Comment on above: Performed By: #### C BCDF #### [address] [address] Eosinophils/100 WBC (Bld) 2.5 % Normal 0.0 - 6.0 [facility] Comment on above: Performed By: #### C BCDF #### [address] [address] Erythrocyte distribution width (RBC) [Ratio] 13.0 % Normal 11.5 - 14.5 [facility] Comment on above: Performed By: #### C BCDF #### [address] [address] Hematocrit (Bld) [Volume fraction] 46.8 % Normal 41.0 - 52.0 [facility] Comment on above: Performed By: #### C BCDF #### [address] [address] Hemoglobin (Bld) [Mass/Vol] 15.0 g/dL Normal 13.5 - 17.5 [facility] Comment on above: Performed By: #### C BCDF #### [address] [address] Lymphocytes (Bld) [#/Vol] 1.46 10*3/uL Normal 1.20 - 4.80 [facility] Comment on above: Performed By: #### C BCDF #### [address] [address] Lymphocytes/100 WBC (Bld) 25.7 % Normal 13.0 - 44.0 [facility] Comment on above: Performed By: #### C BCDF #### [address] [address] MCHC (RBC) [Mass/Vol] 32.1 g/dL Normal 32.0 - 36.0 [facility] Comment on above: Performed By: #### C BCDF #### [address] [address] MCV (RBC) [Entitic vol] 88 fL Normal 80 - 100 [facility] Comment on above: Performed By: #### C BCDF #### [address] [address] Monocytes (Bld) [#/Vol] 0.56 10*3/uL Normal 0.10 - 1.00 [facility] Comment on above: Performed By: #### C BCDF #### [address] [address] Monocytes/100 WBC (Bld) 9.9 % Normal 2.0 - 10.0 [facility] Comment on above: Performed By: #### C BCDF #### [address] [address] Neutrophils (Bld) [#/Vol] 3.46 10*3/uL Normal 1.20 - 7.70 [facility] Comment on above: Result Comment: Perc ent differential counts (%) should be interpreted in the context of the absolute cell counts (cells/L). Performed By: #### C BCDF #### [address] [address] Neutrophils/100 WBC (Bld) 61.0 % Normal 40.0 - 80.0 [facility] Comment on above: Performed By: #### C BCDF #### [address] [address] Platelets (Bld) [#/Vol] 216 10*3/uL Normal 150 - 450 [facility] Comment on above: Performed By: #### C BCDF #### [address] [address] RBC 5.31 x10E12/L Normal 4.50 - 5.90 [facility] Comment on above: Performed By: #### C BCDF #### [address] [address] WBC (Bld) [#/Vol] 5.7 10*3/uL Normal 4.4 - 11.3 [facility] Comment on above: Performed By: #### C BCDF #### [address] [address] COMPREHENSIVE PANELon 2021 Albumin [Mass/Vol] 4.0 g/dL Normal 3.4 - 5.0 [facility] Comment on above: Performed By: #### C MP #### [address] [address] ALP [Catalytic activity/Vol] 57 U/L Normal 33 - 136 [facility] Comment on above: Performed By: #### C MP #### [address] [address] ALT [Catalytic activity/Vol] 38 U/L Normal 10 - 52 [facility] Comment on above: Result Comment: Cat ents treated with Sulfasalazine may generate falsely decreased results for ALT. Performed By: #### C MP #### [address] [address] Anion gap [Moles/Vol] 9 mmol/L Low 10 - 20 [facility] Comment on above: Performed By: #### C MP #### [address] [address] AST [Catalytic activity/Vol] 27 U/L Normal 9 - 39 [facility] Comment on above: Performed By: #### C MP #### [address] [address] Bilirubin [Mass/Vol] 0.4 mg/dL Normal 0.0 - 1.2 [facility] Comment on above: Performed By: #### C MP #### [address] [address] Calcium [Mass/Vol] 9.2 mg/dL Normal 8.6 - 10.3 [facility] Comment on above: Performed By: #### C MP #### [address] [address] Chloride [Moles/Vol] 104 mmol/L Normal 98 - 107 [facility] Comment on above: Performed By: #### C MP #### [address] [address] Creatinine [Mass/Vol] 0.79 mg/dL Normal 0.50 - 1.30 [facility] Comment on above: Performed By: #### C MP #### [address] [address] eGFR MALE >90 Normal >90 [facility] Comment on above: Result Comment: CALC ULATIONS OF ESTIMATED GFR ARE PERFORMED USING THE 2020 CKD-EPI STUDY REFIT EQUATION WITHOUT THE RACE VARIABLE FOR THE IDMS-TRACEABLE CREATININE METHODS. https://jasn.asnjournals.org/content/early//ASN.45454 87651 Performed By: #### C MP #### [address] [address] Glucose [Mass/Vol] 101 mg/dL High 74 - 99 [facility] Comment on above: Performed By: #### C MP #### [address] [address] HCO3 (Bld) [Moles/Vol] 29 mmol/L Normal 21 - 32 [facility] Comment on above: Performed By: #### C MP #### [address] [address] Potassium [Moles/Vol] 4.2 mmol/L Normal 3.5 - 5.3 [facility] Comment on above: Performed By: #### C MP #### [address] [address] Protein [Mass/Vol] 7.0 g/dL Normal 6.4 - 8.2 [facility] Comment on above: Performed By: #### C MP #### [address] [place] [address] Sodium [Moles/Vol] 138 mmol/L Normal 136 - 145 [facility] Comment on above: Performed By: #### C MP #### [address] [place] [address] Urea nitrogen [Mass/Vol] 11 mg/dL Normal 6 - 23 [facility] Comment on above: Performed By: #### C MP #### [address] [address] Complete Blood Count + Diffe pratibha 07-02-2022 Basophils/100 WBC (Bld) 0.7 % 0.0 - 2.0 [facility] Work Phone: [phone] Erythrocyte distribution width (RBC) [Ratio] 13.0 % See Below [facility] Work Phone: [phone] Comment on above: Reference Range: 11. 5 - 14.5 Hematocrit (Bld) [Volume fraction] 46.8 % See Below [facility] Work Phone: [phone] Comment on above: Reference Range: 41. 0 - 52.0 Hemoglobin (Bld) [Mass/Vol] 15.0 g/dL See Below [facility] Work Phone: [phone] Comment on above: Reference Range: 13. 5 - 17.5 Lymphocytes/100 WBC (Bld) 25.7 % See Below [facility] Work Phone: [phone] Comment on above: Reference Range: 13. 0 - 44.0 MCHC (RBC) [Mass/Vol] 32.1 g/dL See Below [facility] Work Phone: [phone] Comment on above: Reference Range: 32. 0 - 36.0 MCV (RBC) [Entitic vol] 88 fL 80 - 100 [facility] Work Phone: [phone] Monocytes/100 WBC (Bld) 9.9 % 2.0 - 10.0 [facility] Work Phone: [phone] Neutrophils/100 WBC (Bld) 61.0 % See Below [facility] Work Phone: Comment on above: Reference Range: 40. 0 - 80.0 Platelets (Bld) [#/Vol] 216 10*3/uL 150 - 450 [facility] Work Phone: RBC (Bld) [#/Vol] 5.31 {x10E12/L} See Below [facility] Work Phone: Comment on above: Reference Range: 4.5 0 - 5.90 WBC (Bld) [#/Vol] 5.7 10*3/uL 4.4 - 11.3 [facility] Work Phone: [phone] Blood Count + Differential 0.04 {x10E9/L} See Below [facility] Work Phone: Comment on above: Reference Range: 0.0 0 - 0.10 Complete Blood Count + Differential 0.14 {x10E9/L} See Below [facility] Work Phone: [phone] Comment on above: Reference Range: 0.0 0 - 0.70 Complete Blood Count + Differential 0.56 {x10E9/L} See Below [facility] Work Phone: Comment on above: Reference Range: 0.1 0 - 1.00 Complete Blood Count + Differential 1.46 {x10E9/L} See Below [facility] Work Phone: [phone] Comment on above: Reference Range: 1.2 0 - 4.80 Complete Blood Count + Differential 3.46 {x10E9/L} See Below [facility] Work Phone: [phone] Comment on above: Reference Range: 1.2 0 - 7.70 Percent differential counts (%) should be interpreted in the context of the absolute cell counts (cells/L). Complete Blood Count + Differential 2.5 % 0.0 - 6.0 [facility] Work Phone: [phone] Complete Blood Count + Differential 0.2 % 0.0 - 0.9 [facility] Work Phone: Comment on above: Immature Granulocyte Count (IG) includes promyelocytes, myelocytes and metamyelocytes but does not include bands. Percent differential counts (%) should be interpreted in the context of the absolute cell counts (cells/L). HEMOGLOBIN A1Con 07-02-2022 Glucose [Mass/Vol] 126 mg/dL Normal [facility] Comment on above: Performed By: #### H BA1E #### [address] [address] HbA1c (Bld) [Mass fraction] 6.0 % Abnormal [facility] Comment on above: Result Comment: Diag nosis of Diabetes-Adults Non-Diabetic: < or = 5.6% Increased risk for developing diabetes: 5.7-6.4% Diagnostic of diabetes: > or = 6.5% . Monitoring of Diabetes Age (y) Therapeutic Goal (%) Adults: >18 <7.0 Pediatrics: 13-18 <7.5 7-12 <8.0 0- 6 7.5-8.5 [employer]. Diabetes Care 33(S1), Aug 2009. Performed By: #### H BA1E #### [address] [address] Hemoglobin A1Con 07-02-2022 Glucose [Mass/Vol] 126 mg/dL [facility] Work Phone: HbA1c (Bld) [Mass fraction] 6.0 % Abnormal [facility] Work Phone: Comment on above: Diagnosis of Diabete s-Adults Non-Diabetic: < or = 5.6% Increased risk for developing diabetes: 5.7-6.4% Diagnostic of diabetes: > or = 6.5%. Monitoring of Diabetes Age (y) Therapeutic Goal (%) Adults: >18 <7.0 Pediatrics: 13-18 <7.5 7-12 <8.0 0- 6 7.5-8.5 [employer]. Diabetes Care 33(S1), Aug 2009. LIPID PANEL (CORONARY RISK 2 )on 07-02-2022 Cholesterol [Mass/Vol] 178 mg/dL Normal 0 - 199 [facility] Comment on above: Result Comment: . AGE DESIRABLE BORDERLINE HIGH HIGH 0-19 Y 0 - 169 170 - 199 >/= 200 20-24 Y 0 - 189 190 - 224 >/= 225 >24 Y 0 - 199 200 - 239 >/= 240 All ranges are based on fasting samples. Specific therapeutic targets will vary based on patient-specific cardiac risk. . Pediatric guidelines reference:Pediatrics 2011, 128(S5). Adult guidelines reference: NCEP ATPIII Guidelines, JULIANNE 2001, 258:2486-97 . Venipuncture immediately after or during the administration of Metamizole may lead to falsely low results. Testing should be performed immediately prior to Metamizole dosing. Performed By: #### L IPID #### [address] [address] Cholesterol in HDL [Mass/Vol] 36.0 mg/dL Abnormal [facility] Comment on above: Result Comment: . AGE VERY LOW LOW NORMAL HIGH 0-19 Y < 35 < 40 40-45 ---- 20-24 Y ---- < 40 >45 ---- >24 Y ---- < 40 40-60 >60 . Performed By: #### L IPID #### [address] [address] Cholesterol in LDL [Mass/Vol] 106 mg/dL High 0 - 99 [facility] Comment on above: Result Comment: . NEAR BORD AGE DESIRABLE OPTIMAL HIGH HIGH VERY HIGH 0-19 Y 0 - 109 --- 110-129 >/= 130 ---- 20-24 Y 0 - 119 --- 120-159 >/= 160 ---- >24 Y 0 - 99 100-129 130-159 160-189 >/=190 . Performed By: #### L IPID #### [address] [address] Cholesterol in VLDL [Mass/Vol] 36 mg/dL Normal 0 - 40 [facility] Comment on above: Performed By: #### L IPID #### [address] [address] Cholesterol.total/Chol esterol in HDL [Mass ratio] 4.9 {ratio} Normal [facility] Comment on above: Result Comment: REF VALUES DESIRABLE < 3.4 HIGH RISK > 5.0 Performed By: #### L IPID #### [address] [place] [address] Triglyceride [Mass/Vol] 182 mg/dL High 0 - 149 [facility] Comment on above: Result Comment: . AGE DESIRABLE BORDERLINE HIGH HIGH VERY HIGH 0 D-90 D 19 - 174 ---- ---- ---- 91 D- 9 Y 0 - 74 75 - 99 >/= 100 ---- 10-19 Y 0 - 89 90 - 129 >/= 130 ---- 20-24 Y 0 - 114 115 - 149 >/= 150 ---- >24 Y 0 - 149 150 - 199 200- 499 >/= 500 . Venipuncture immediately after or during the administration of Metamizole may lead to falsely low results. Testing should be performed immediately prior to Metamizole dosing. Performed By: #### L IPID #### [address] [address] Laboratory - Chemistry and C hemistry - challengeon 07-02-2022 Albumin BCP dye [Mass/Vol] 4.0 g/dL 3.4 - 5.0 [facility] Work Phone: ALP [Catalytic activity/Vol] 57 U/L 33 - 136 [facility] Work Phone: [phone] ALT With P-5'-P [Catalytic activity/Vol] 38 U/L 10 - 52 [facility] Work Phone: [phone] Comment on above: Patients treated wit h Sulfasalazine may generate falsely decreased results for ALT. Anion gap [Moles/Vol] 9 mmol/L below low threshold 10 - 20 [facility] Work Phone: [phone] AST With P-5'-P [Catalytic activity/Vol] 27 U/L 9 - 39 [facility] Work Phone: [phone] Bilirubin [Mass/Vol] 0.4 mg/dL 0.0 - 1.2 [facility] Work Phone: Calcium [Mass/Vol] 9.2 mg/dL 8.6 - 10.3 [facility] Work Phone: Chloride [Moles/Vol] 104 mmol/L 98 - 107 [facility] Work Phone: CO2 [Moles/Vol] 29 mmol/L 21 - 32 [facility] Work Phone: Creatinine [Mass/Vol] 0.79 mg/dL See Below [facility] Work Phone: Comment on above: Reference Range: 0.5 0 - 1.30 Glucose [Mass/Vol] 101 mg/dL above high threshold 74 - 99 [facility] Work Phone: Potassium [Moles/Vol] 4.2 mmol/L 3.5 - 5.3 [facility] Work Phone: Protein [Mass/Vol] 7.0 g/dL 6.4 - 8.2 [facility] Work Phone: Sodium [Moles/Vol] 138 mmol/L 136 - 145 [facility] Work Phone: TSH Qn 2.26 m[IU]/L See Below [facility] Work Phone: Comment on above: Reference Range: 0.4 4 - 3.98 TSH testing is performed using different testing methodology at [facility] than at other [facility]. Direct result comparisons should only be made within the same method. Urea nitrogen [Mass/Vol] 11 mg/dL 6 - 23 [facility] Work Phone: Lipid Panelon 07-02-2022 Cholesterol [Mass/Vol] 178 mg/dL 0 - 199 [facility] Work Phone: Comment on above: . AGE DESIRABLE BORD CLAUDETTE HIGH HIGH 0-19 Y 0 - 169 170 - 199 >/= 200 20-24 Y 0 - 189 190 - 224 >/= 225 >24 Y 0 - 199 200 - 239 >/= 240 All ranges are based on fasting samples. Specific therapeutic targets will vary based on patient-specific cardiac risk.. Pediatric guidelines reference:Pediatrics 2011, 128(S5). Adult guidelines reference: NCEP ATPIII Guidelines, JULIANNE 2001, 258:2486-97. Venipuncture immediately after or during the administration of Metamizole may lead to falsely low results. Testing should be performed immediately prior to Metamizole dosing. Cholesterol in HDL [Mass/Vol] 36.0 mg/dL Abnormal [facility] Work Phone: Comment on above: . AGE VERY LOW LOW N ORMAL HIGH 0-19 Y < 35 < 40 40-45 ---- 20-24 Y ---- < 40 >45 ---- >24 Y ---- < 40 40-60 >60. Cholesterol in LDL [Mass/Vol] 106 mg/dL above high threshold 0 - 99 [facility] Work Phone: Comment on above: . NEAR BORD AGE KAIRNA RABLE OPTIMAL HIGH HIGH VERY HIGH 0-19 Y 0 - 109 --- 110-129 >/= 130 ---- 20-24 Y 0 - 119 --- 120-159 >/= 160 ---- >24 Y 0 - 99 100-129 130-159 160-189 >/=190. Cholesterol.total/Chol esterol in HDL [Mass ratio] 4.9 {ratio} [facility] Work Phone: Comment on above: REF VALUESDESIRABLE < 3.4HIGH RISK > 5.0 Triglyceride [Mass/Vol] 182 mg/dL above high threshold 0 - 149 [facility] Work Phone: Comment on above: . AGE DESIRABLE BORD CLAUDETTE HIGH HIGH VERY HIGH 0 D-90 D 19 - 174 ---- ---- ----91 D- 9 Y 0 - 74 75 - 99 >/= 100 ---- 10-19 Y 0 - 89 90 - 129 >/= 130 ---- 20-24 Y 0 - 114 115 - 149 >/= 150 ---- >24 Y 0 - 149 150 - 199 200- 499 >/= 500. Venipuncture immediately after or during the administration of Metamizole may lead to falsely low results. Testing should be performed immediately prior to Metamizole dosing. Lipid Panel 36 mg/dL 0 - 40 [facility] Work Phone: No Panel Informationon 07-02 >90 >90 [facility] Work Phone: Comment on above: CALCULATIONS OF SCOOTER MATED GFR ARE PERFORMED USING THE 2020 CKD-EPI STUDY REFIT EQUATION WITHOUT THE RACE VARIABLE FOR THE IDMS-TRACEABLE CREATININE METHODS.https://jasn.asnjournals.org/content//A SN.2654805601 PROSTATE SPEC.AG,SCREENon PROSTATE SPEC.AG,SCREEN 2.78 ng/mL Normal 0.00 - 4.00 [facility] Comment on above: Result Comment: The FDA requires that the method used for PSA assay be reported to the physician. Values obtained with different assay methods must not be used interchangeably. This test was performed at [facility] using the Access Hybritech PSA assay is a two-site immunoenzymatic sandwich assay. The assay is approved for measurement of prostate-specific antigen (PSA)in serum and may be used in conjunction with a digital rectal examination in men 50 years and older as an aid in detection of prostate cancer. 0-Tdtlt-fskvgonrb inhibitors (e.g. Proscar, Finasteride, Avodart, Dutasteride and Joana) for the treatment of BPH have been shown to lower PSA levels by an average of 50% after 6 months of treatment. Performed By: #### P [facility] #### [place] [address] Prostate Spec.Ag, Screenon 1 09-01-2021 Prostate specific Ag [Mass/Vol] 2.78 ng/mL See Below [facility] Work Phone: Comment on above: Reference Range: 0.0 0 - 4.00The FDA requires that the method used for PSA assay be reported to the physician. Values obtained with different assay methods must not be used interchangeably. This testwas performed at [facility] using the Access Hybritech PSA assay is a two-site immunoenzymatic sandwich assay. The assay is approved for measurement of prostate-specific antigen (PSA)in serum and may be used in conjunction with a digital rectal examination in men 50 years and older as an aid in detection of prostate cancer.6-Dssbb-yqfrugmlf inhibitors (e.g. Proscar, Finasteride, Avodart, Dutasteride and Joana) for the treatment of BPH have been shown to lower PSA levels by an average of 50% after 6 months of treatment. TSH WITH REFLEX TO FREE T4 I F ABNORMALon 07-02-2022 TSH Qn 2.26 m[IU]/L Normal 0.44 - 3.98 [facility] Comment on above: Result Comment: TSH testing is performed using different testing methodology at [facility] than at other [facility]. Direct result comparisons should only be made within the same method. Performed By: #### [facility] #### [facility] [address] [place] [address] Office Visit (Family Janna de la torre)on 01-12-2022 Follow-up visit Diagnoses/Problems Acute sinusitis (461.9) (J01.90) Orders Acute sinusitis Start: Amoxicillin 500 MG Oral Capsule; TAKE 2 CAPSULE Twice daily Chief Complaint pt c/o congestion, ST, and fatigue x 1 week. History of Present Illness strept throat grandson 1 week ago no known covid exprosure no fevers cough feesl drainage down throat tired has been sleeping more in 1 week covid 6 months ago no body aches home bp today 121/76 Active Problems Class 2 obesity with body mass index (BMI) of 39.0 to 39.9 in adult (278.00,V85.39) (E66.9,Z68.39) Colon cancer screening (V76.51) (Z12.11) COVID-19 virus infection (079.89) (U07.1) Current tear of semilunar cartilage (836.2) (S83.209A) Encounter for prostate cancer screening (V76.44) (Z12.5) HTN (hypertension) (401.9) (I10) Hyperlipidemia (272.4) (E78.5) Moderate obstructive sleep apnea (327.23) (G47.33) Positive colorectal cancer screening using Cologuard test (787.7) (R19.5) Past Medical History History of Positive colorectal cancer screening using Cologuard test (787.7) (R19.5) Resolved Date: 30 Sep 2021 Surgical History History of Meniscus repair Family History Family history of cardiac disorder (V17.49) (Z82.49) Family history of cerebrovascular accident (CVA) (V17.1) (Z82.3) Family history of diabetes mellitus (V18.0) (Z83.3) Family history of hyperlipidemia (V18.19) (Z83.438) Social History Former smoker (V15.82) (Z87.891) No alcohol use Allergies Lipitor Myalgia; Recorded By: Nayely Valdez; 09/18/2019 11:44:17 AM Zocor Myalgia; Recorded By: Nayely Valdez; 09/18/2019 11:44:17 AM Current Meds Medication NameInstructionReason Metoprolol Succinate ER 100 MG Oral Tablet Extended Release 24 HourTAKE 0.5 TABLET Twice dailyHTN (hypertension) Fish Oil CAPSTake one tablet once daily Vitamin C CAPSTake one tablet once daily Vitals Vital Signs Recorded: [id number] 02:43PM Heart Rate62 Vhybdojp480 Tqrpdeboc10 Dqwyeh517.72 cm Thjmfl567.57 kg BMI Pcmjmyenee26.41 kg/m2 BSA Calculated2.28 Physical Exam General: Alert and oriented, No acute distress. HEENT normal tonsils red no exudates Neck: Supple, Non-tender, No lymphadenopathy, No thyromegaly. Respiratory: Lungs are clear to auscultation, Respirations are non-labored, Breath sounds are equal, Symmetrical chest wall expansion. Normal gait. Neurologic: Alert, Oriented, No focal deficits. Cognition and Speech: Oriented, Speech clear and coherent, Functional cognition intact. Psychiatric: Cooperative, Appropriate mood AND affect, Normal judgment. 'Scores and Scales' Signatures Electronically signed by : Carlos Bazzi MD; Jan 12 2022 3:24PM EST (Author) Normal Touchworks Colonoscopyon 10-20-2021 Colonoscopy PATIENTNAME Patient Name: Jack Springer EXAMDATE Procedure Date: 10/20/2021 11:19 AM PATIENTID PATIENTACCOUNTNUM PATIENTDOB Date of : 1960 ADMITTYPE Admit Type: Outpatient PATIENTROOM Site: [facility] 1 ETHNICITY Ethnicity: Not or RACE Race: White PROVDR Attending MD: Michael Zimmerman DO ENDOPROCEDURENAME Procedure: Colonoscopy INDICATION Indications: Positive Cologuard test PRIMARYPROVIDER Providers: Michael Zimmerman DO (Doctor), Ariela Pozo RN (Nurse), Lefty Bettencourt RN (Nurse) EDREFPROVIDER Referring: Carlos Bazzi MD CURRENT_MEDS Medicines: Midazolam 7.5 mg IV, Meperidine 50 mg IV COMPLIC Complications: No immediate complications. ENDOPROCEDURETEXT Procedure: Pre-Anesthesia Assessment: - Prior to the procedure, a History and Physical was performed, and patient medications and allergies were reviewed. The patient is competent. The risks and benefits of the procedure and the sedation options and risks were discussed with the patient. All questions were answered and informed consent was obtained. Patient identification and proposed procedure were verified by the physician in the pre-procedure area. Mental Status Examination: alert and oriented. Airway Examination: normal oropharyngeal airway and neck mobility. Respiratory Examination: clear to auscultation. CV Examination: normal. Prophylactic Antibiotics: The patient does not require prophylactic antibiotics. Prior Anticoagulants: The patient has taken no anticoagulant or antiplatelet agents. ASA Grade Assessment: II - A patient with mild systemic disease. After reviewing the risks and benefits, the patient was deemed in satisfactory condition to undergo the procedure. The anesthesia plan was to use moderate sedation / analgesia (conscious sedation). Immediately prior to administration of medications, the patient was re-assessed for adequacy to receive sedatives. The heart rate, respiratory rate, oxygen saturations, blood pressure, adequacy of pulmonary ventilation, and response to care were monitored throughout the procedure. The physical status of the patient was re-assessed after the procedure. After I obtained informed consent, the scope was passed under direct vision. Throughout the procedure, the patient's blood pressure, pulse, and oxygen saturations were monitored continuously. The adult colonoscope was introduced through the anus and advanced to the cecum, identified by appendiceal orifice and ileocecal valve. The colonoscopy was performed without difficulty. The patient tolerated the procedure well. The quality of the bowel preparation was excellent. The ileocecal valve, appendiceal orifice, and rectum were photographed. FINDING Findings: The perianal and digital rectal examinations were normal. Pertinent negatives include normal sphincter tone and no palpable rectal lesions. Two sessile polyps were found in the descending colon and ascending colon. The polyps were 4 to 6 mm in size. These polyps were removed with a hot snare. Resection and retrieval were complete. No additional abnormalities were found on retroflexion. SEDATION Moderate Sedation: Moderate (conscious) sedation was administered by the endoscopy nurse and supervised by the endoscopist. The following parameters were monitored: oxygen saturation, heart rate, blood pressure, and response to care. Total physician intraservice time was 22 minutes. EBL Estimated Blood Loss: Estimated blood loss: none. IMPRESS Impression: - Two 4 to 6 mm polyps in the descending colon and in the ascending colon, removed with a hot snare. Resected and retrieved. ENDORECOMMENDATION Recommendation: - Patient has a contact number available for emergencies. The signs and symptoms of potential delayed complications were discussed with the patient. Return to normal activities tomorrow. Written discharge instructions were provided to the patient. - Resume previous diet. - Continue present medications. - Repeat colonoscopy in 5 years for surveillance based on pathology results. - Return to referring physician as previously scheduled. - Telephone GI clinic for pathology results in 1 week. CPT_CODES Procedure Code(s): --- Professional --- 02000, Colonoscopy, flexible; with removal of tumor(s), polyp(s), or other lesion(s) by snare technique G0500, Moderate sedation services provided by the same physician or other qualified health director critical care performing a gastrointestinal endoscopic service that sedation supports, requiring the presence of an independent trained observer to assist in the monitoring of the patient's level of consciousness and physiological status; initial 15 minutes of intra-service time; patient age 5 years or older (additional time may be reported with 55483, as appropriate) (more content not included)... Normal [facility] No Panel Informationon 10-20 [employer] Work Phone: [email or web address]} [employer] Work Phone: [facility] Surgical Pathology Depar tmenton 10-20-[address] [facility] Surgical Pathology Department Name JCAK SPRINGER Pathologist: MASSIEL WILKINS MD Date of Procedure: 10/20/2021 Date Received: 10/21/2021 Date Reported 10/22/2021 Submitting Physician: MICHAEL ZIMMERMAN DO Location: [facility] Copy To/Referring/Attending: CARLOS BAZZI MD Other External # FINAL DIAGNOSIS A. DESCENDING COLON POLYP: -- HYPERPLASTIC POLYP. B. ASCENDING COLON POLYP: -- FRAGMENTS OF TUBULAR ADENOMA. Electronically Signed Out By MASSIEL WILKINS MD/DIMPLE By the signature on this report, the individual or group listed as making the Final Interpretation/Diagnosis certifies that they have reviewed this case. Clinical History: Physician Contact Number: [phone] Fixative (A): Formalin Fixative (B): Formalin Clinical Diagnosis History FECAL ABNORMALITIES Specimens Submitted As: A: DESCENDING COLON POLYP B: ASCENDING COLON POLYP Gross Description: A: Received in formalin, labeled with the patient's name and hospital number and descending colon polyp, is a fragment of tapia, soft tissue measuring 0.6 x 0.2 x 0.1 cm. The specimen is submitted in toto in one cassette. SBS B: Received in formalin, labeled with the patient's name and hospital number and ascending colon polyp, are 2 fragments of tapia, soft tissue aggregating to 0.6 x 0.2 x 0.2 cm. The specimen is submitted in toto in one cassette. SBS sbs/10/21/2021 [facility] Department of Pathology [address] [place] [address] Normal [facility] Comment on above: Performed By: #### U [facility] #### [facility] Surgical Pathology Department [address] [place] [address] Office Visit (Family Medicin e)on 09-01-2021 Follow-up visit Diagnoses/Problems Class 2 obesity with body mass index (BMI) of 39.0 to 39.9 in adult (278.00,V85.39) (E66.9,Z68.39) Information given on weight loss diet and exercise. COVID-19 virus infection (079.89) (U07.1) Orders COVID-19 virus infection Start: Dexamethasone 6 MG Oral Tablet; Take 1 tablet daily Xray Chest 2 View PA + Lateral; Status:Hold For - Scheduling; Requested for:01Sep2021; Radiologist to Determine Optimal Study : Y What are the patient's signs and symptoms? : cough Chief Complaint PERSISTENT COUGH AND CHEST TIGHTNESS History of Present Illness covid 2 weeks 08/09 of symptoms home test had infusion on day 11/17 had infusion 08/15 brown mucus brown bloody mucus then started on the 08/17 finished on the blood stopped aftet 3 days dry cough and hard to get full breath no cxr oxygen home has been 93 to 89% recently mid know no wheezing no cp no calf pain no swelling has been using 's symbicort and ventolin with some relief Active Problems Colon cancer screening (V76.51) (Z12.11) COVID-19 virus infection (079.89) (U07.1) Current tear of semilunar cartilage (836.2) (S83.209A) Encounter for prostate cancer screening (V76.44) (Z12.5) HTN (hypertension) (401.9) (I10) Hyperlipidemia (272.4) (E78.5) Moderate obstructive sleep apnea (327.23) (G47.33) Positive colorectal cancer screening using Cologuard test (787.7) (R19.5) Surgical History History of Meniscus repair Family History Family history of cardiac disorder (V17.49) (Z82.49) Family history of cerebrovascular accident (CVA) (V17.1) (Z82.3) Family history of diabetes mellitus (V18.0) (Z83.3) Family history of hyperlipidemia (V18.19) (Z83.438) Social History Former smoker (V15.82) (Z87.891) No alcohol use Allergies Lipitor Myalgia; Recorded By: Nayely Valdez; 09/18/2019 11:44:17 AM Zocor Myalgia; Recorded By: Nayely Valdez; 09/18/2019 11:44:17 AM Current Meds Medication NameInstructionReason Metoprolol Succinate ER 100 MG Oral Tablet Extended Release 24 HourTAKE 0.5 TABLET Twice dailyHTN (hypertension) Fish Oil CAPSTake one tablet once daily Vitamin C CAPSTake one tablet once daily Vitals Vital Signs Recorded: 01Sep2021 03:53PMRecorded: 01Sep2021 03:50PM Tobacco Useb) Nob) No PHQ-2 #1. Over the last 2 weeks have you felt down, depressed or hopeless? (If yes, answer PHQ-9 below)No PHQ-2 #2. Over the last 2 weeks have you felt little interest or pleasure in doing things? (If yes, answer PHQ-9 below)No Fall Screeninga) No falls within the last yeara) No falls within the last year Ddnmnxeh232 Tkdqmzjne03 Waiecq240.72 cm Pudqsa886.75 kg BMI Xgqilavhcf47.14 kg/m2 BSA Calculated2.3 Physical Exam General: Alert and oriented, No acute distress. Neck: Supple, Non-tender, No lymphadenopathy, No thyromegaly. Respiratory: Lungs are clear to auscultation, Respirations are non-labored, Breath sounds are equal, Symmetrical chest wall expansion. Cardiovascular: Normal rate, Regular rhythm, No murmur. Normal gait. Neurologic: Alert, Oriented, No focal deficits. Cognition and Speech: Oriented, Speech clear and coherent, Functional cognition intact. Psychiatric: Cooperative, Appropriate mood AND affect, Normal judgment. 'Scores and Scales' Signatures Electronically signed by : Carlos Bazzi MD; Sep 01 2021 4:16PM EST (Author) Normal [facility] Radiologyon 09-01-2021 XR Chest 2 Views Normal [facility] Work Phone: Tobacco Screening.on 022 Adult depression screening assessment No [facility] Work Phone: Fall risk assessment a) No falls within the last year [facility] Work Phone: Tobacco use status [facility] b) No [facility] Work Phone: Fall risk assessment a) No falls within the last year [facility] Work Phone: Tobacco use status [facility] b) No [facility] Work Phone: Laboratory - Molecular patho logyon 07-27-2021 Noninvasive colorectal cancer DNA and occult blood screening Americo (Stl) [Interp] Positive Abnormal Negative [facility] Work Phone: Comment on above: [employer] (CLIA #:[id number])[address] [place] [address] DOYLE OSBORN Clinical Laboratory Medical DirectorPOSITIVE TEST RESULT. A positive Cologuard result should be followed with a colonoscopy or visual examination of the colon. The normal value (reference range) for this assay is negative.TEST DESCRIPTION: Composite algorithmic analysis of stool DNA-biomarkers with hemoglobin immunoassay. Quantitative values of individual biomarkers are not reportable and are not associated with individual biomarker result reference ranges. Cologuard is intended for colorectal cancer screening of adults of either sex, 45 years or older, who are at average-risk for colorectal cancer (CRC). Cologuard has been approved for use by the U.S. FDA. The performance of Cologuard was established in a cross sectional study of average-risk adults aged 50-84. Cologuard performance in patients ages 45 to 49 years was estimated by sub-group analysis of near-age groups. Colonoscopies performed for a positive result may find as the most clinically significant lesion: colorectal cancer [4.0%], advanced adenoma (including sessile serrated polyps greater than or equal to 1cm diameter) [20%] or non- advanced adenoma [31%]; or no colorectal neoplasia [45%]. These estimates are derived from a prospective cross-sectional screening study of 10,000 individuals at average risk for colorectal cancer who were screened with both Cologuard and colonoscopy. (Te Cox. et al, N Engl J Med 2014;370(14):7434-2913.) Cologuard may produce a false negative or false positive result (no colorectal cancer or precancerous polyp present at colonoscopy follow up). A negative Cologuard test result does not guarantee the absence of CRC or advanced adenoma (pre-cancer). The current Cologuard screening interval is every 3 years. ([place] [employer] and U.S. Multi-Society Task Force). Cologuard performance data in a 10,000 patient pivotal study using colonoscopy as the reference method can be accessed at the following location: www.MobileTag/results. Additional description of the Cologuard test process, warnings and precautions can be found at www.cologuard.com. Tobacco Screening.on 021 Tobacco use status CP b) No -[facility] Work Phone: BMPon 12-13-2017 Creatinine mass conc 0.8 mg/dL Normal 0.6-1.3 [facility] Comment on above: Performed By: #### 2 [id number] ####ROLANDA UchHbra6[address] [place] [address] Urea nitrogen mass conc 11 mg/dL Normal 7-[address] [facility] Comment on above: Performed By: #### 2 [id number] ####ROLANDA QtkFxds2141 [place] [address] Urea nitrogen/Creatinine mass ratio 13.8 ratio Normal 5.4-30.[address] [facility] Comment on above: Performed By: #### 2 [id number] ####ROLANDA VevOkrc5517 [place] [address] Calcium mass conc 9.2 mg/dL Normal 8.4-10.2 [facility] Comment on above: Performed By: #### 2 [id number] ####ROLANDA YidEtmk3235 [place] [address] Chloride molar conc 105 mmol/L Normal 98-107 [facility] Comment on above: Performed By: #### 2 [id number] ####ROLANDA PjvFtwg1513 [place] [address] CO2 molar conc 28.0 mmol/L Normal 24.0-30.[address] [facility] Comment on above: Performed By: #### 2 [id number] ####ROLANDA XbxPpas9895 [place] [address] Glucose mass conc 101 mg/dL High 70-99 [facility] Comment on above: Performed By: #### 2 [id number] ####ROLANDA EvwBaqm0215 [place] [address] Potassium molar conc 4.2 mmol/L Normal 3.5-5.1 [facility] Comment on above: Performed By: #### 2 [id number] ####ROLANDA XvyIsfv6599 [place] [address] Sodium molar conc 140 mmol/L Normal 136-145 [facility] Comment on above: Performed By: #### 2 [id number] ####ROLANDA ImyMqdx8511 [place] [address] Lipid Profileon 12-13-2017 Cholesterol in HDL mass conc 31 mg/dL Low >=[address] [facility] Comment on above: Performed By: #### 3 [id number] ####ROLANDA CviRcec8745 [place] [address] Cholesterol in LDL mass conc 104 mg/dL Normal 0-[address] [facility] Comment on above: Result Comment: <100 [id number] NEAR / ABOVE PQJEVIA994- 159 BORDERLINE [id number] HIGH>190 VERY HIGHCALC LDL NOT VALID WHEN TRIGLYCERIDE IS >400 MG/DL Performed By: #### 3 [id number] ####ROLANDA BqtAppj4150 [place] [address] Cholesterol in VLDL mass conc 79 mg/dL Normal [facility] Comment on above: Performed By: #### 3 [id number] ####ROLANDA TpfMjwd6214 [place] [address] Cholesterol mass conc 214 mg/dL High 50-200 [facility] Comment on above: Result Comment: TOTA L CHOLEESTEROL: <200 NORMAL 200 - 239 BORDERLINE HIGH >240 HIGH Performed By: #### 3 [id number] ####ROLANDA MjvCqff5113 [place] [address] Triglyceride mass conc 394 mg/dL High 35-[address] [facility] Comment on above: Result Comment: <150 SQPMPZ480-105 BORDERLINE [id number] HIGH>500 VERY HIGH Performed By: #### 3 [id number] ####ROLANDA TjbMmdx1139 [place] [address] eGFRon 12-13-2017 eGFR AA >[address] [facility] Comment on above: Order Comment: Order added by Discern Expert. Performed By: #### 1 [id number] ####ROLANDA ExjVpbx7658 [place] [address] GFR/1.73 sq M predicted among non-blacks MDRD vol rate/area (S/P/Bld) mL/min/{1.73_m2} Normal [facility] Comment on above: Order Comment: Order added by Discern Expert. Performed By: #### 1 [id number] ####ROLANDA ClrQjcw6951 [place] [address] Vital Signs Date Time Vital Sign Value Performing Clinician Facility 12-26-2024 14:41-0400 Body height 172.[address] Carlos Bazzi MD Work Phone: [facility] 12-26-2024 14:41-0400 Body mass index (BMI) [Ratio] 38 kg/m2 Dr. Carlos Bazzi MD Work Phone: [facility] 12-26-2024 14:41-0400 Body weight 113.[address] Carlos Bazzi MD Work Phone: [facility] 12-14-2024 13:27-0400 Body height 172.7 cm Osman Stentz PA-C Work Phone: [facility] 12-14-2024 13:27-0400 Body mass index (BMI) [Ratio] 38.77 kg/m2 Osman Stentz PA-C Work Phone: [facility] 12-14-2024 13:27-0400 Body weight 115.67 kg Osman Stentz PA-C Work Phone: [facility] 12-14-2024 13:27-0400 Diastolic blood pressure 82 mm[Hg] Osman Stentz PA-C Work Phone: [facility] 12-14-2024 13:27-0400 Heart rate 66 /min Osman Stentz PA-C Work Phone: [facility] 12-14-2024 13:27-0400 SaO2% (BldA) [Mass fraction] 95 % Osman Stentz PA-C Work Phone: [facility] 12-14-2024 13:27-0400 Systolic blood pressure 128 mm[Hg] Osman Stentz PA-C Work Phone: [facility] 10-29-2024 15:05-0400 Body height 172.[address] Carlos Bazzi MD Work Phone: [facility] 10-29-2024 15:05-0400 Body mass index (BMI) [Ratio] 38.6 kg/m2 Dr. Carlos Bazzi MD Work Phone: [facility] 10-29-2024 15:05-0400 Body weight 115.[address] Carlos Bazzi MD Work Phone: [facility] 10-08-2024 15:33-0500 Body height 172.7 cm Osman Stentz PA-C Work Phone: [facility] 10-08-2024 15:33-0500 Body mass index (BMI) [Ratio] 38.32 kg/m2 Osman Stentz PA-C Work Phone: [facility] 10-08-2024 15:33-0500 Body weight 114.31 kg Osman Stentz PA-C Work Phone: [facility] 10-08-2024 15:33-0500 Diastolic blood pressure 78 mm[Hg] Osman Stentz PA-C Work Phone: [facility] 10-08-2024 15:33-0500 Heart rate 79 /min Osman Stentz PA-C Work Phone: [facility] 10-08-2024 15:33-0500 SaO2% (BldA) [Mass fraction] 97 % Osman Stentz PA-C Work Phone: [facility] 10-08-2024 15:33-0500 Systolic blood pressure 118 mm[Hg] Osman Stentz PA-C Work Phone: [facility] 10-08-2024 14:09-0500 Body height 172.7 cm Olu Brady MD Work Phone: [facility] 10-08-2024 14:09-0500 Body mass index (BMI) [Ratio] 38.56 kg/m2 Olu Brady MD Work Phone: [facility] 10-08-2024 14:09-0500 Body weight 115.03 kg Olu Brady MD Work Phone: [facility] 10-08-2024 14:09-0500 Diastolic blood pressure 80 mm[Hg] Olu Brady MD Work Phone: [facility] 10-08-2024 14:09-0500 Heart rate 68 /min Olu Brady MD Work Phone: [facility] 10-08-2024 14:09-0500 SaO2% (BldA) [Mass fraction] 94 % Olu Brady MD Work Phone: [facility] 10-08-2024 14:09-0500 Systolic blood pressure 122 mm[Hg] Olu Brady MD Work Phone: [facility] 08-31-2024 11:32-0500 Body height 172.7 cm Olu Brady MD Work Phone: [facility] 08-31-2024 11:32-0500 Body mass index (BMI) [Ratio] 38.01 kg/m2 Olu Brady MD Work Phone: [phone] [place] [address] 08-31-2024 11:32-0500 Body weight 113.4 kg Olu Brady MD Work Phone: [facility] 08-31-2024 11:32-0500 Diastolic blood pressure 80 mm[Hg] Olu Brady MD Work Phone: [facility] 08-31-2024 11:32-0500 Heart rate 55 /min Olu Brady MD Work Phone: [facility] 08-31-2024 11:32-0500 SaO2% (BldA) [Mass fraction] 95 % Olu Brady MD Work Phone: [facility] 08-31-2024 11:32-0500 Systolic blood pressure 120 mm[Hg] Olu Brady MD Work Phone: [facility] 04-06-2024 16:10-0400 Body height 172.7 cm Osman Morin PA-C Work Phone: [facility] 04-06-2024 16:10-0400 Body mass index (BMI) [Ratio] 36.78 kg/m2 Osman Stentz PA-C Work Phone: [facility] 04-06-2024 16:10-0400 Body weight 109.72 kg Osman Stentz PA-C Work Phone: [facility] 04-06-2024 16:10-0400 Diastolic blood pressure 74 mm[Hg] Osman Stentz PA-C Work Phone: [facility] 04-06-2024 16:10-0400 Heart rate 64 /min Osman Stentz PA-C Work Phone: [facility] 04-06-2024 16:10-0400 SaO2% (BldA) [Mass fraction] 91 % Osman Stentz PA-C Work Phone: [facility] 04-06-2024 16:10-0400 Systolic blood pressure 121 mm[Hg] Osman Stentz PA-C Work Phone: [facility] 01-28-2023 07:59-0400 Body height 172.7 cm Osman Stentz PA-C Work Phone: [facility] 01-28-2023 07:59-0400 Body mass index (BMI) [Ratio] 38.47 kg/m2 Osman Stentz PA-C Work Phone: [facility] 01-28-2023 07:59-0400 Body weight 114.76 kg Osman Stentz PA-C Work Phone: [facility] 01-28-2023 07:59-0400 Diastolic blood pressure 82 mm[Hg] Osman Stentz PA-C Work Phone: [facility] 01-28-2023 07:59-0400 Heart rate 65 /min Osman Stentz PA-C Work Phone: [facility] 01-28-2023 07:59-0400 Systolic blood pressure 128 mm[Hg] Osman Stentz PA-C Work Phone: [facility] 10-29-2022 09:09-0400 Body height 172.7 cm Osman Stentz PA-C Work Phone: [facility] 10-29-2022 09:09-0400 Body mass index (BMI) [Ratio] 38.92 kg/m2 Osman Stentz PA-C Work Phone: [facility] 10-29-2022 09:09-0400 Body weight 116.12 kg Osman Stentz PA-C Work Phone: [facility] 10-29-2022 09:09-0400 Diastolic blood pressure 80 mm[Hg] Osman Stentz PA-C Work Phone: [facility] 10-29-2022 09:09-0400 Heart rate 72 /min Osman Stentz PA-C Work Phone: [facility] 10-29-2022 09:09-0400 Systolic blood pressure 130 mm[Hg] Osman Stentz PA-C Work Phone: [facility] 10-21-2022 09:48-0500 Body height 172.7 cm Osman Stentz PA-C Work Phone: [facility] 10-21-2022 09:48-0500 Body mass index (BMI) [Ratio] 38.01 kg/m2 Osman Stentz PA-C Work Phone: [facility] 10-21-2022 09:48-0500 Body temperature 97.7 [degF] Osman Stentz PA-C Work Phone: [facility] 10-21-2022 09:48-0500 Body weight 113.4 kg Osman Stentz PA-C Work Phone: [facility] 10-21-2022 09:48-0500 Diastolic blood pressure 78 mm[Hg] Osman Stentz PA-C Work Phone: [facility] 10-21-2022 09:48-0500 Heart rate 84 /min Osman Berryz PA-C Work Phone: [facility] 10-21-2022 09:48-0500 Systolic blood pressure 124 mm[Hg] Osman Berryz PA-C Work Phone: [facility] 07-27-2022 21:36-0500 Diastolic blood pressure 102 mm[Hg] Dr. Carlos Bazzi Work Phone: [facility] Work Phone: 07-27-2022 21:36-0500 Heart rate 73 /min Dr. Carlos Bazzi Work Phone: [facility] Work Phone: 07-27-2022 21:36-0500 Respiratory rate 15 /min Dr. Carlos Bazzi Work Phone: [facility] Work Phone: 07-27-2022 21:36-0500 SaO2% (BldA) [Mass fraction] 98 % Dr. Carlos Bazzi Work Phone: [facility] Work Phone: 07-27-2022 21:36-0500 Systolic blood pressure 168 mm[Hg] Dr. Carlos Bazzi Work Phone: [facility] Work Phone: 07-27-2022 17:10-0500 Body temperature 96.5 [degF] Dr. Carlos Bazzi Work Phone: [facility] Work Phone: 07-27-2022 16:57-0500 Body height 172.[address] Carlos Bazzi Work Phone: [facility] Work Phone: 07-27-2022 16:57-0500 Body mass index (BMI) [Ratio] 40.5 kg/m2 Dr. Carlos Bazzi Work Phone: [facility] Work Phone: 07-27-2022 16:57-0500 Body weight 121 kg Carlos Singher Work Phone: [facility] Work Phone: 09-01-2021 15:50-0500 Body height 172.72 cm Carlos L Rose Mary Work Phone: [facility] Work Phone: 09-01-2021 15:50-0500 Body mass index (BMI) [Ratio] 40.14 kg/m2 Carlos L Rose Mary Work Phone: [facility] Work Phone: 09-01-2021 15:50-0500 Body surface area Derived from formula 2.3 m2 Carlos L Rose Mary Work Phone: [facility] Work Phone: 09-01-2021 15:50-0500 Body weight 119.75 kg Carlos L Rose Mary Work Phone: [facility] Work Phone: 09-01-2021 15:50-0500 Diastolic blood pressure 82 mm[Hg] Carlos L Rose Mary Work Phone: [facility] Work Phone: 09-01-2021 15:50-0500 Systolic blood pressure 136 mm[Hg] Carlos L Rose Mary Work Phone: [facility] Work Phone: 06-22-2021 14:33-0500 Body height 172.72 cm Carlos L Rose Mary Work Phone: [facility] Work Phone: 06-22-2021 14:33-0500 Body mass index (BMI) [Ratio] 39.53 kg/m2 Carlos L Rose Mary Work Phone: [facility] Work Phone: 06-22-2021 14:33-0500 Body surface area Derived from formula 2.28 m2 Carlos Bazzi Work Phone: [facility] Work Phone: 06-22-2021 14:33-0500 Body weight 117.93 kg Carlos Bazzi Work Phone: [facility] Work Phone: 06-22-2021 14:33-0500 Diastolic blood pressure 80 mm[Hg] Carlos Bazzi Work Phone: [facility] Work Phone: 06-22-2021 14:33-0500 Heart rate 72 /min Carlos Bazzi Work Phone: [facility] Work Phone: 06-22-2021 14:33-0500 Systolic blood pressure 130 mm[Hg] Carlosallison Bazzi Work Phone: [facility] Work Phone: Encounters Encounter Date Encounter Type Care Provider Facility Start: 01-15-2025 ambulatory [facility] Facility :[facility] Start: 01-14-2025 Encounter for other preprocedural examination [facility] Start: 12-26-2024 End: 12-26-2024 Patient encounter procedure Sarai BENEDICTC -[facility] Work Phone: Start: 12-26-2024 End: 12-26-[address] Carlos Bazzi MD Work Phone: [facility] Work Phone: Start: 12-14-2024 End: 12-14-2024 Office outpatient visit 25 minutes Osman Morin PA-C Work Phone: [facility] Comment on above: Hypertension, unspec ified type (Primary Dx); SOB (shortness of breath); Primary insomnia; Fatigue, unspecified type; Other general symptoms and signs; Mixed hyperlipidemia Start: 12-14-2024 End: 12-14-2024 ambulatory [facility] Ambulatory Start: 12-08-2024 End: 12-08-[address] Carlos Bazzi MD Work Phone: [facility] Work Phone: Start: 12-08-2024 End: 12-08-[address] Shan Jaeger DO -Cat Scan, [facility] Work Phone: Start: 12-08-2024 End: 12-08-2024 ambulatory [facility] Facility:[facility] Start: 10-29-2024 End: 10-29-[address] Shan Jaeger DO -[facility] Work Phone: Start: 10-29-2024 End: 10-29-2024 ambulatory [facility] Facility:[facility] Start: 10-08-2024 End: 10-08-2024 Subsequent hospital visit by physician Segundo [id number] [facility] Comment on above: Upper respiratory tr act infection, unspecified type Start: 10-08-2024 End: 10-08-2024 ambulatory [facility] Start: 10-08-2024 End: 10-08-2024 Office outpatient visit 15 minutes Osman Morin PA-C Work Phone: [facility] Comment on above: Primary insomnia (Pr imary Dx); Upper respiratory tract infection, unspecified type; Screening cholesterol level; Hypertension, unspecified type; Prediabetes; Screening for prostate cancer; Mixed hyperlipidemia; Vitamin B12 deficiency; Vitamin D deficiency Start: 10-08-2024 End: 10-08-2024 ambulatory [facility] Ambulatory Start: 10-08-2024 End: 10-08-2024 Office outpatient visit 25 minutes Olu Brady MD Work Phone: [facility] Building Comment on above: Atherosclerosis (Linda sadiq Dx); Arthralgia, unspecified joint; Moderate obstructive sleep apnea; SOB (shortness of breath); Class 2 severe obesity with serious comorbidity and body mass index (BMI) of 38.0 to 38.9 in adult, unspecified obesity type; Prediabetes; Hypertension, unspecified type; Hyperlipidemia, unspecified hyperlipidemia type; Elevated coronary artery calcium score Start: 10-08-2024 End: 10-08-2024 [facility] Ambulatory Start: 09-24-2024 End: 09-24-2024 Subsequent hospital visit by physician Segundo Verma 2 [facility] Comment on above: Arrived Elevated coronary ar adia calcium score Start: 09-24-2024 End: 09-24-2024 ambulatory [facility] Start: 08-31-2024 End: 08-31-2024 Office outpatient new 45 minutes Olu Brady MD Work Phone: [facility] Building Comment on above: Hypertension, unspec ified type (Primary Dx); Elevated coronary artery calcium score; Hyperlipidemia, unspecified hyperlipidemia type; Prediabetes; Class 2 severe obesity with serious comorbidity and body mass index (BMI) of 38.0 to 38.9 in adult, unspecified obesity type; SOB (shortness of breath); Arthralgia, unspecified joint; Moderate obstructive sleep apnea Start: 08-31-2024 End: 08-31-2024 [facility] Ambulatory Start: 05-07-2024 End: 05-07-2024 Orders Only George Hanna MD Work Phone: Cardiology Comment on above: Elevated coronary ar adia calcium score (Primary Dx) Start: 04-27-2024 End: 04-27-2024 Subsequent hospital visit by physician Segundo Townsend 2 [facility] Comment on above: Screening for cardio vascular condition Start: 04-27-2024 End: 04-27-2024 ambulatory [facility] Start: 04-06-2024 End: 04-06-2024 Office outpatient visit 25 minutes Osman Morin PA-C Work Phone: [facility] Comment on above: Prediabetes (Primary Dx); Hypertension, unspecified type; Screening for prostate cancer; Screening cholesterol level; Screening for thyroid disorder; Fatigue, unspecified type Start: 04-06-2024 End: 04-06-2024 ambulatory [facility] Ambulatory Start: 01-28-2023 End: 01-28-2023 Office outpatient visit 25 minutes Osman Morin PA-C Work Phone: [facility] Comment on above: Prediabetes (Primary Dx); Hypertension, unspecified type; Arthralgia, unspecified joint Start: 11-04-2022 [address] Mr. Osman Morin Facil ity:[id number] Start: 10-29-2022 End: 10-29-2022 Office outpatient visit 25 minutes Osman Morin PA-C Work Phone: [facility] Comment on above: Hypertension, unspec ified type (Primary Dx); SOB (shortness of breath) Start: 10-21-2022 End: 10-21-2022 Office outpatient visit 15 minutes Osman Morin PA-C Work Phone: [facility] Comment on above: Upper respiratory tr act infection, unspecified type (Primary Dx) Start: 08-31-2022 AUDIT Osman Morin Work Phone: [facility] Work Phone: Start: 07-30-2022 ambulatory Carlos Singher Facility: [id number] Start: 07-27-2022 End: 07-27-2022 Emergency department patient visit Dr. Carlos Bazzi Work Phone: [facility] Start: 07-02-2022 Chart Update Carlos burks Work Phone: [facility] Work Phone: Start: 07-02-2022 Non-patient / Non-visit Dr. Cullen Work Phone: [facility] Start: 07-02-[address] Kiesha Bazzi Work Phone: [facility] Start: 06-29-2022 AUDIT Carlos burks Work Phone: [facility] Work Phone: Start: 06-14-2022 AUDIT Carlos L Kierra r Work Phone: [facility] Work Phone: Start: 01-12-2022 ambulatory Carlos Rose Mary Facility: [id number] Start: 10-23-2021 Chart Update Carlos L Kierra r Work Phone: [place] [id number] Work Phone: Start: 09-30-2021 AUDIT Carlos L Kierra r Work Phone: [facility] Work Phone: Start: 09-10-2021 AUDIT Carlos L Kierra r Work Phone: [facility] Work Phone: Start: 09-03-2021 Telephone encounter Carlos L Rose Mary Work Phone: [facility] Work Phone: Start: 09-02-2021 Chart Update Carlos L Kierra r Work Phone: [facility] Work Phone: Start: 09-01-2021 ambulatory Carlos Rose Mary Facility: [id number] Start: 08-21-2021 AUDIT Carlos L Kierra r Work Phone: [facility] Work Phone: Start: 08-17-2021 AUDIT Carlos L Kierra r Work Phone: [facility] Work Phone: Start: 08-12-2021 ambulatory [facility] Facility:[id number] Start: 08-03-2021 Chart Update Carlos L Kierra r Work Phone: [facility] Work Phone: Start: 06-22-2021 AUDIT Carlos L Kierra r Work Phone: [facility] Work Phone: Start: 08-10-2018 End: 08-11-2018 Patient encounter procedure Nadege Hull Facility:[facility] Start: 05-29-2018 End: 05-30-2018 Patient encounter procedure Carlos Bazzi Facility:[facility] Start: 12-13-2017 End: 12-14-2017 Patient encounter procedure Carlos Bazzi Facility:[facility] Start: 12-05-2017 Patient encounter procedure Carlos Bazzi Facility:[facility] Start: 12-05-2017 End: 12-06-2017 Patient encounter procedure Carlosallison Bazzi Facility:[facility] Procedures Date Procedure Procedure Detail Performing Clinician Start: 12-10-2024 Lipid 1996 panel - S jimi or Plasma Osman Stentz PA-C Work Phone: Start: 12-08-2024 MRI of lower extremity Dr. Carlos Bazzi MD Work Phone: Start: 12-08-2024 X-ray of knee, four or more views Dr. Carlos Bazzi MD Work Phone: Start: 09-24-2024 Echo transthorc r-t 2d w/wo m-mode rec f-up/lmtd Olu Brady MD Work Phone: Start: 09-24-2024 Cv strs tst xers&/or rx cont ecg trcg only Olu Brady MD Work Phone: Start: 09-24-2024 Myocardial spect multiple studies Olu Brady MD Work Phone: Start: 08-31-2024 Ecg routine ecg w/le ast 12 lds w/i&r Olu Brady MD Work Phone: Start: 04-27-2024 Lipid 1996 panel - S jimi or Plasma Segundo 2 Start: 07-27-2022 CT of head without contrast Dr. Carlos Bazzi Work Phone: Start: 07-27-2022 Diagnostic radiograp hy of abdomen Dr. Carlos Bazzi Work Phone: Start: 07-02-2022 Lipid 1996 panel - S jimi or Plasma Osman Stentz PA-C Work Phone: Start: 10-20-2021 End: 10-20-2021 Colonoscopy Carlos Bazzi Work Phone: Start: 12-13-2017 PSA screening Carlos baltazar Comment on above: Result Comment: AGE- SPECIFIC REFERENCE RANGES FOR SERUM PSA REFERENCE RANGE NG/ML AGE ASIANS BLACKS WHITE 40-49 0-2 0-2 0-2.5 50-59 0-3 0-4 0-3.5 60-69 0-4 0-4.5 0-4.5 70-79 0-5 0-5.5 0-6.5 PSA INCREASES WITH AGE, RACE, AND EJACULATION WITHIN 48 [facility]RS[facility] VOL24,NO.2, , PG.339 Performed By: #### [id number] ####ROLANDA [id number] [place] [id number] History of reconstruction of anterior cruciate ligament tear History of reconstruction of anterior cruciate ligament tear Dr. Carlos Bazzi MD Work Phone: History of reconstruction of anterior cruciate ligament tear History of reconstruction of anterior cruciate ligament tear Dr. Shan Jaeger DO Repair of meniscus Carlos Bazzi Work Phone: Plan of Treatment Date Care Activity Detail Author Start: 2036 RSV High Risk: (Elde rly (60+) or Population) (1 - 1-dose 75+ series) RSV High Risk: (Elderly (60+) or Population) (1 - 1-dose 75+ series) [facility] Start: 2036 RSV Vaccine (1 - 1-d ose 75+ series) RSV Vaccine (1 - 1-dose 75+ series) [facility] Start: 10-21-2031 Screening for malign ant neoplasm of colon [facility] Start: 12-10-2029 Lipid panel Lipid Panel [facility] Start: 04-27-2029 Lipid panel [facility] Start: 04-27-2029 Prostate specific antigen measurement Prostate Cancer Screening Discussion [facility] Start: 07-02-2027 Lipid panel Lipid Panel [facility] Start: 04-27-2027 Diabetes mellitus screening Diabetes Screening [facility] Start: 04-27-2027 Diabetes Screening Diabetes Screenin g [facility] Start: 10-07-2025 End: 10-07-2025 Patient encounter procedure 10/07/2025 2:45 PM EST Office Visit [facility] [address] [place] [address] Olu Claire MD [address] [place] [address] [facility] Start: 07-02-2025 Diabetes mellitus screening Diabetes Screening [facility] Start: 06-17-2025 End: 06-17-2025 Patient encounter procedure 06/17/2025 1:00 PM EST Office Visit [facility] [address] [place] [phone] Osman Morin PA-C [address] [facility], [address] [place] [address] [facility] Start: 06-10-2025 End: 12-14-2025 CBC panel - Blood by Automated count CBC Lab Routine Hypertension, unspecified type Expected: 06/10/2025, Expires: 12/14/2025 [facility] Work Phone: Comment on above: Expected: 06/10/2025 , Expires: 12/14/2025 Start: 06-10-2025 End: 12-14-2025 Comprehensive metabolic 2000 panel - Serum or Plasma Comprehensive Metabolic Panel Lab Routine Hypertension, unspecified type Expected: 06/10/2025, Expires: 12/14/2025 [facility] Work Phone: Comment on above: Expected: 06/10/2025 , Expires: 12/14/2025 Start: 06-10-2025 End: 12-14-2025 Lipid 1996 panel - Serum or Plasma Lipid Panel Lab Routine Mixed hyperlipidemia Expected: 06/10/2025, Expires: 12/14/2025 [facility] Work Phone: Comment on above: Expected: 06/10/2025 , Expires: 12/14/2025 Start: 04-27-2025 Hemoglobin A1c measurement Diabetes: Hemoglobin A1C [facility] Start: 04-15-2025 Influenza vaccination Influenz a Vaccine (Season Ended) [facility] Start: 01-18-2025 ambulatory Ambulatory Facility:[facility] Start: 12-14-2024 End: 12-14-2025 Testosterone [Mass/volume] in Serum or Plasma Testosterone Lab Routine Other general symptoms and signs Expected: 12/14/2024 (Approximate), Expires: 12/14/2025 [facility] Service Area Work Phone: Comment on above: Expected: 12/14/2024 (Approximate), Expires: 12/14/2025 Start: 12-14-2024 End: 12-14-2024 Patient encounter procedure 12/14/2024 1:45 PM EDT Office Visit [facility] [address] [place] [phone] Osman Morin PA-C [address] [facility], [address] [place] [id number] [facility] Start: 10-08-2024 End: 10-08-2024 Patient encounter procedure 10/08/2024 3:45 PM EST Office Visit [place] [id number] [place] [phone] Osman Morin PA-C [address] [facility], [address] [place] [address] [facility] Start: 10-08-2024 End: 10-08-2024 Patient encounter procedure 10/08/2024 2:15 PM EST Office Visit [facility] [address] [place] [phone] Olu Claire MD [address] [place], [place] [id number] [facility] Start: 10-08-2024 End: 10-08-2025 25-hydroxyvitamin D3 [Mass/volume] in Serum or Plasma Vitamin D 25-Hydroxy,Total (for eval of Vitamin D levels) Lab Routine Vitamin D deficiency Expected: 10/08/2024 (Approximate), Expires: 10/08/2025 [facility] Work Phone: Comment on above: Expected: 10/08/2024 (Approximate), Expires: 10/08/2025 Start: 10-08-2024 End: 10-08-2025 CBC panel - Blood by Automated count CBC Lab Routine Hypertension, unspecified type Expected: 10/08/2024 (Approximate), Expires: 10/08/2025 [facility] Work Phone: Comment on above: Expected: 10/08/2024 (Approximate), Expires: 10/08/2025 Start: 10-08-2024 End: 10-08-2025 Cobalamin (Vitamin B12) [Mass/volume] in Serum or Plasma Vitamin B12 Lab Routine Vitamin B12 deficiency Expected: 10/08/2024 (Approximate), Expires: 10/08/2025 [facility] Work Phone: Comment on above: Expected: 10/08/2024 (Approximate), Expires: 10/08/2025 Start: 10-08-2024 End: 10-08-2025 Comprehensive metabolic 2000 panel - Serum or Plasma Comprehensive Metabolic Panel Lab Routine Hypertension, unspecified type Expected: 10/08/2024 (Approximate), Expires: 10/08/2025 [facility] Work Phone: Comment on above: Expected: 10/08/2024 (Approximate), Expires: 10/08/2025 Start: 10-08-2024 End: 10-08-2025 Hemoglobin A1c/Hemoglobin.total in Blood Hemoglobin A1C Lab Routine Prediabetes Expected: 10/08/2024 (Approximate), Expires: 10/08/2025 [facility] Work Phone: Comment on above: Expected: 10/08/2024 (Approximate), Expires: 10/08/2025 Start: 10-08-2024 End: 10-08-2025 Lipid 1996 panel - Serum or Plasma Lipid Panel Lab Routine Mixed hyperlipidemia Expected: 10/08/2024 (Approximate), Expires: 10/08/2025 [facility] Work Phone: Comment on above: Expected: 10/08/2024 (Approximate), Expires: 10/08/2025 Start: 10-08-2024 End: 10-08-2025 Prostate specific Ag [Mass/volume] in Serum or Plasma Prostate Specific Antigen, Screen Lab Routine Screening for prostate cancer Expected: 10/08/2024 (Approximate), Expires: 10/08/2025 [facility] Work Phone: Comment on above: Expected: 10/08/2024 (Approximate), Expires: 10/08/2025 Start: 10-08-2024 End: 10-08-2025 XR Chest 2 Views [facility] Service Area Work Phone: Comment on above: Expected: 10/08/2024 , Expires: 10/08/2025 Once for 1 Occurrenc es starting 10/08/2024 until 10/08/2024 Start: 09-24-2024 End: 09-24-2024 Patient encounter procedure [facility] Start: 08-31-2024 End: 08-31-2025 Holter monitor study Holter Or Event [facility] Routine Elevated coronary artery calcium score Expected: 08/31/2024, Expires: 08/31/2025 [facility] Service Area Work Phone: Comment on above: Expected: 08/31/2024 , Expires: 08/31/2025 Start: 08-31-2024 End: 08-31-2026 NM Heart Perfusion W stress and W radionuclide IV Nuclear Stress Test Cardiac Nuclear Medicine Routine Elevated coronary artery calcium score Expected: 08/31/2024 (Approximate), Expires: 08/31/2026 [facility] Work Phone: Comment on above: Expected: 08/31/2024 (Approximate), Expires: 08/31/2026 Start: 08-31-2024 End: 08-31-2026 US Heart Transthoracic Transthoracic Echo Complete Echocardiography Routine Elevated coronary artery calcium score Expected: 08/31/2024 (Approximate), Expires: 08/31/2026 [facility] Work Phone: Comment on above: Expected: 08/31/2024 (Approximate), Expires: 08/31/2026 Start: 07-27-2024 Screening for malign ant neoplasm of colon FIT-DNA (Cologuard) [facility] Start: 07-06-2024 End: 07-06-2024 Patient encounter procedure 07/06/2024 1:30 PM EST Office Visit Cardiology [address] [place] [phone] George Hanna MD [address] [id number] Clinician, Interventional [address] [place] [id number] Elevated coronary artery calcium score Cardiology Comment on above: Elevated coronary ar adia calcium score Start: 07-06-2024 End: 07-06-2024 ambulatory 07/06/2024 12:45 PM EST Results Only Cardiology [address] [place] [address] Elevated coronary artery calcium score Cardiology Comment on above: Elevated coronary ar adia calcium score Start: 07-06-2024 End: 07-06-2024 Patient encounter procedure 07/06/2024 12:15 PM EST Office Visit Cardiology [address] [place] [address] Elevated coronary artery calcium score Cardiology Comment on above: Elevated coronary ar adia calcium score Start: 04-27-2024 End: 04-27-2024 Patient encounter procedure 04/27/2024 9:00 AM EDT Appointment [address] [phone] [facility] Start: 04-15-2024 COVID-19 Vaccine () COVID-19 Vaccine () [facility] Start: 04-15-2024 Covid-19 Vaccine ( season) Covid-19 Vaccine ( season) [facility] Start: 04-15-2024 Influenza vaccination Influenza Vacc ine (#1) [facility] Start: 04-06-2024 End: 04-06-2025 25-hydroxyvitamin D3 [Mass/volume] in Serum or Plasma Vitamin D 25-Hydroxy,Total (for eval of Vitamin D levels) Lab Routine Fatigue, unspecified type Expected: 04/06/2024 (Approximate), Expires: 04/06/2025 [facility] Work Phone: Comment on above: Expected: 04/06/2024 (Approximate), Expires: 04/06/2025 Start: 04-06-2024 End: 04-06-2025 CBC panel - Blood by Automated count CBC Lab Routine Hypertension, unspecified type Expected: 04/06/2024 (Approximate), Expires: 04/06/2025 [facility] Service Area Work Phone: Comment on above: Expected: 04/06/2024 (Approximate), Expires: 04/06/2025 Start: 04-06-2024 End: 04-06-2025 Cobalamin (Vitamin B12) [Mass/volume] in Serum or Plasma Vitamin B12 Lab Routine Fatigue, unspecified type Expected: 04/06/2024 (Approximate), Expires: 04/06/2025 [facility] Work Phone: Comment on above: Expected: 04/06/2024 (Approximate), Expires: 04/06/2025 Start: 04-06-2024 End: 04-06-2025 Comprehensive metabolic 2000 panel - Serum or Plasma Comprehensive Metabolic Panel Lab Routine Hypertension, unspecified type Expected: 04/06/2024 (Approximate), Expires: 04/06/2025 [facility] Work Phone: Comment on above: Expected: 04/06/2024 (Approximate), Expires: 04/06/2025 Start: 04-06-2024 End: 04-06-2025 Hemoglobin A1c/Hemoglobin.total in Blood Hemoglobin A1C Lab Routine Prediabetes Expected: 04/06/2024 (Approximate), Expires: 04/06/2025 [facility] Work Phone: Comment on above: Expected: 04/06/2024 (Approximate), Expires: 04/06/2025 Start: 04-06-2024 End: 04-06-2025 Lipid 1996 panel - Serum or Plasma Lipid Panel Lab Routine Screening cholesterol level Expected: 04/06/2024 (Approximate), Expires: 04/06/2025 [facility] Work Phone: Comment on above: Expected: 04/06/2024 (Approximate), Expires: 04/06/2025 Start: 04-06-2024 End: 04-06-2025 Prostate specific Ag [Mass/volume] in Serum or Plasma Prostate Specific Antigen, Screen Lab Routine Screening for prostate cancer Expected: 04/06/2024 (Approximate), Expires: 04/06/2025 [facility] Work Phone: Comment on above: Expected: 04/06/2024 (Approximate), Expires: 04/06/2025 Start: 04-06-2024 End: 04-06-2025 TSH with reflex to Free T4 if abnormal TSH with reflex to Free T4 if abnormal Lab Routine Screening for thyroid disorder Expected: 04/06/2024 (Approximate), Expires: 04/06/2025 [facility] Work Phone: Comment on above: Expected: 04/06/2024 (Approximate), Expires: 04/06/2025 Start: 07-02-2023 Hemoglobin A1c measurement Diabetes: Hemoglobin A1C [facility] Start: 04-29-2023 End: 04-29-2023 Patient encounter procedure 04/29/2023 1:15 PM EDT Office Visit [facility] [address] [place] [phone] Osman Morin PA-C [address] [facility], [address] [place] [address] [facility] Start: 04-15-2023 COVID-19 Vaccine (2 - 2023-24 season) COVID-19 Vaccine ( season) [facility] Start: 04-15-2023 Influenza vaccination Influenz a Vaccine (Season Ended) [facility] Start: 01-28-2023 End: 01-28-2023 Patient encounter procedure 01/28/2023 8:00 AM EDT Office Visit [facility] [address] [facility] [address] [place] [address] Osman Morin PA-C [address] [facility], [address] [place] [phone] [facility] Start: 10-29-2022 FUV, Provider: Osman Morin, Status: Pen, Time: 9:00 AM FUV, Provider: Osman Morin, Status: Pen, Time: 9:00 AM [facility] Work Phone: Start: 10-29-2022 End: 10-29-2022 Patient encounter procedure 10/29/2022 9:00 AM EDT Office Visit [facility] [address] [facility] [address] [place] [address] Osman Morin PA-C [address] [facility], [facility] [address] [place] [phone] [facility] Start: 10-20-2022 Screening for malign ant neoplasm of colon [facility] Start: 07-30-2022 EPV, Provider: Osman Morin, Status: Pen, Time: 9:00 AM EPV, Provider: Osman Morin, Status: Pen, Time: 9:00 AM [facility] Work Phone: Start: 07-27-2022 [facility] Work Phone: Start: 06-24-2022 EPV, Provider: Carlos Bazzi, Status: Pen, Time: 3:40 PM EPV, Provider: Carlos Bazzi, Status: Pen, Time: 3:40 PM [facility] Work Phone: Start: 04-15-2022 Influenza vaccination Influenza Vacc ine (#1) [facility] Start: 2021 RSV patient s and/or patients aged 60+ years (1 - 1-dose 60+ series) RSV patients and/or patients aged 60+ years (1 - 1-dose 60+ series) [facility] Start: 09-17-2021 COVID-19 Vaccine (2 - Pfizer series) COVID-19 Vaccine (2 - Pfizer series) [facility] Start: 09-09-2021 COLON, Provider: Michael Zimmerman, Status: Pen, Time: 11:00 AM COLON, Provider: Michael Zimmerman, Status: Pen, Time: 11:00 AM [facility] Work Phone: Start: 08-13-2021 COVID-19 Vaccine (#2) COVID-19 Vacci ne (#2) [facility] Start: 11-04-2011 Pneumococcal vaccination Pneumococcal Vaccine (1 of 1 - PCV) [facility] Start: 11-04-2011 Shingrix Vaccine (1 of 2) Shingrix Vaccine (1 of 2) [facility] Start: 11-04-2011 Zoster Vaccines (1 o f 2) Zoster Vaccines (1 of 2) [facility] Start: 2006 Screening for malign ant neoplasm of colon [facility] Start: 11-04-1983 DTaP/Tdap/Td Vaccine s (1 - Tdap) DTaP/Tdap/Td Vaccines (1 - Tdap) [facility] Start: 1980 Urine microalbumin profile DTaP,Tdap,Td Vaccine (1 - Tdap) [facility] Start: 11-04-1979 Anxiety Screening Anxiety Screening [facility] Start: 11-04-1979 Depression Screening Depression Scre ening [facility] Start: 11-04-1979 Hepatitis C screening Hepatitis C Sc nakul [facility] Start: 11-04-1979 HIV screening HIV Screening [facility] Start: 1968 DTaP/Tdap/Td Vaccine s (1 - Tdap) DTaP/Tdap/Td Vaccines (1 - Tdap) [facility] Start: 1962 MMR Vaccines (1 of 1 - Standard series) MMR Vaccines (1 of 1 - Standard series) [facility] Start: 1960 HIV screening HIV Screening [facility] Start: 1960 Screening for malign ant neoplasm of colon [facility] Start: 1960 Yearly Adult Physical Yearly Adult P hysical [facility] End: 04-27-2024 CT for calcium scoring WO contrast and CTA W contrast IV Heart and coronary arteries [facility] Service Area Work Phone: Comment on above: Once for 1 Occurrenc es starting 04/27/2024 until 04/27/2024 End: 05-07-2025 ECG COMPLETE ECG COMPLETE ECG Routine Elevated coronary artery calcium score 1 Occurrences starting 05/07/2024 until 05/07/2025 [facility] Work Phone: Comment on above: 1 Occurrences starti ng 05/07/2024 until 05/07/2025 End: 09-24-2024 Holter monitor study [facility] Work Phone: Comment on above: Once for 1 Occurrenc es starting 09/24/2024 until 09/24/2024 Influenza virus A an d B and SARS-CoV-2 (COVID-19) Ag panel - Upper respiratory specim [facility] Work Phone: Patient Education ED Viral Syndrome (Adul t) [facility] Work Phone: Patient referral [facility] Work Phone: SARS-CoV-2 & FLU Antigen (Rapid) SARS-CoV-2 & FLU Antigen (Rapid) [facility] Work Phone: Immunizations Immunization Date Immunization Notes Care Provider Celeste hurtado 07-23-2021 [employer] COVID-19 Vacc 30 MCG/0.3ML Intramuscular Suspension Carlos Bazzi Work Phone: [facility] Payers Date Payer Category Payer Self-pay [id number] 2023 Private Health Insurance GENERIC COMMERCIAL [id number] 2021 Unknown [id number] 2021 Unknown [id number] 2017 Unknown 1961 Unknown [id number] 2.16.840.1.680993.3.579.2.356 1961 Unknown [id number] 2.16.840.1.001257.3.579.2.356 1961 Unknown [id number] 2.16.840.1.558859.3.579.2.356 1961 Unknown [id number] 2.16.840.1.029244.3.579.2.356 1961 Unknown [id number] 2.16.840.1.540106.3.579.2.106 9 1961 Unknown [id number] 2.16.840.1.812728.3.579.2.717 1961 Unknown [id number] 2.16.840.1.914595.3.579.2.717 1961 Unknown [id number] 2.16.840.1.305733.3.579.2.717 1961 Unknown [id number] 2.16.840.1.668863.3.579.2.717 1961 Unknown [id number] 2.16.840.1.732230.3.579.2.717 1961 Unknown [id number] 2.16.840.1.410128.3.579.2.124 5 1961 Unknown [id number] 2.16.840.1.602901.3.579.2.124 3 1961 Unknown [id number] 2.16.840.1.726753.3.579.2.124 3 1961 Unknown [id number] 2.16.840.1.248816.3.579.2.124 3 1961 Unknown [id number] 2.16.840.1.266225.3.579.2.124 3 1961 Unknown [id number] 2.16.840.1.185752.3.579.2.124 3 1961 Unknown [id number] 2.16.840.1.251055.3.579.2.124 3 1961 Unknown [id number] 2.16.840.1.376710.3.579.2.124 3 1961 Unknown [id number] 2.16.840.1.496817.3.579.2.124 3 1961 Unknown [id number] 2.16.840.1.151352.3.579.2.124 3 1961 Unknown [id number] 2.16.840.1.759436.3.579.2.124 4 1961 Unknown [id number] 2.16.840.1.715842.3.579.2.124 4 1961 Unknown [id number] 2.16.840.1.508790.3.579.2.124 4 1961 Unknown [id number] 2.16.840.1.162388.3.579.2.124 4 1961 Unknown [id number] 2.16.840.1.180268.3.579.2.124 4 Unknown [employer] [id number] Unknown [facility] *DO NOT USE* [id number] Unknown [id number] 2.16.840.1.816011.3.579.2.462 Unknown [id number] 2.16.840.1.409959.3.579.2.462 Unknown [id number] 2.16.840.1.980912.3.579.2.462 Unknown [id number] 2.16.840.1.519926.3.579.2.462 Unknown [id number] 2.16.840.1.782552.3.579.2.462 Social History Date Type Detail Facility Assertion Unknown if ever smoked -As [facility] Work Phone: Start: 01-28-2023 End: 12-14-2024 Former smoker Former smoker [facility] Work Phone: Start: 07-27-2022 Tobacco smoking stat [facility] Unknown if ever smoked [facility] Work Phone: Start: 1960 Sex Assigned At Male [facility] Start: 10-21-2022 End: 12-24-2024 Tobacco smoking status NHIS Ex-smoker [facility] History of tobacco use Current smoker [facility] Work Phone: History of tobacco use Cigarette Smoker [facility] Work Phone: Start: 10-21-2022 Tobacco use and exposure Smokeless tobacco non-user [facility] Work Phone: Start: 01-28-2023 End: 12-14-2024 Tobacco use panel [facility] Work Phone: Start: 1960 Sex Assigned At Not on file [facility] Work Phone: Start: 10-11-2022 End: 12-14-2024 Exposure to SARS-CoV-2 (event) Not sure [facility] Start: 04-06-2024 End: 12-14-2024 Alcoholic beverage intake Ex-drinker (finding) [facility] Work Phone: Start: 07-27-2022 Tobacco smoking stat us NHIS Never smoked tobacco (finding) [facility] Start: 12-12-2024 Sex Male (finding) [facility] Functional Status Date Assessment Result Facility 12-14-2024 Patient Health Questionnaire 2 item (PHQ-2) [Reported] [facility] Work Phone: NEGATED: Highlighted row Functional performance Functional status health issues are not documented Disease [facility] Work Phone: Mental Status Date Assessment Result Facility 07-27-2022 Cognitive function Level Of Cons ciousness Awake;Alert;Appropriate [facility] Work Phone: NEGATED: Highlighted row Cognitive function [Interpretation] Cognitive status health issues are not documented Disease [facility] Work Phone: Clinical Notes 10-21-2022 to 12-14-2024 Osman Morin PA-C - 12/14/2024 1:45 PM EDTPatient Instructions Note Date & Type Note Facility 12-14-2024 History of Presen t illness Narrative Subjective Patient ID: Jack Sprigner is a 64 y.o. male who presents for pt here for surgical clearance (Pt c/o feeling tired ). HPI HTN: Good in office today 128/82. Compliant with metoprolol 100mg daily, no SE. Losartan was not effective. Endorses significant fatigue daily. HYPERLIPIDEMIA: Need to check level. PREDIABETES: Last A1C stable. HAYDEN: Does not wear CPAP. Would not like sleep study. SOB ON EXERTION: Will use rescue about twice monthly. Stable currently, would not like PFTs at this time. FATIGUE: Chronic, daily, significant, sleeping better with hydroxyzine. Will have L TKA soon per [place]. Labs all stable. Colonoscopy with a few polyps 10/20/21, due again 2026. PSA WNL last check. Review of Systems Constitutional: Positive for fatigue. Respiratory: Negative. Cardiovascular: Negative. Gastrointestinal: Negative. Objective BP 128/82 Pulse 66 Ht 1.727 m (5' 8) Wt 116 kg (255 lb) SpO2 95% BMI 38.77 kg/m Physical Exam Constitutional: General: He is not in acute distress. Appearance: Normal appearance. He is not ill-appearing. HENT: Head: Normocephalic and atraumatic. Eyes: Extraocular Movements: Extraocular movements intact. Conjunctiva/sclera: Conjunctivae normal. Cardiovascular: Rate and Rhythm: Normal rate and regular rhythm. Heart sounds: Normal heart sounds. No murmur heard. Pulmonary: Effort: Pulmonary effort is normal. Abdominal: General: There is no distension. Musculoskeletal: General: Normal range of motion. Cervical back: Normal range of motion. Skin: General: Skin is warm and dry. Neurological: General: No focal deficit present. Mental Status: He is alert and oriented to person, place, and time. Psychiatric: Mood and Affect: Mood normal. Behavior: Behavior normal. Thought Content: Thought content normal. Judgment: Judgment normal. Assessment/Plan Check T level today. RCR score of 0. Cleared for surgery. Labs reviewed and stable, lipids improving on Zetia. Decrease metoprolol to 50mg daily, start amlodipine 10m daily, keep me updated on pressure readings. Follow up 6 months with fasting labs prior. documented in this encounter [facility] Work Phone: 12-14-2024 Instructions Osman Morin PA-C - 12/14/2024 1:45 PM EDT Start taking 50mg of metoprolol nightly and 10mg of amlodipine every morning. documented in this encounter [facility] Work Phone: 12-08-2024 Radiology Diagnostic study note [facility] Imaging Services [address] [place], [place] [id number] Extremity Lower without Contra MR#: [id number] Acct: [id number] Name: JACK SPRINGER Rep #: [id number] : 1960 M 64 From: Haris Mitchell MD PCP: Dr. Carlos Bazzi MD Status: REG CLI Study:Extremity Lower without Contra Date of Exam: 12/08/24 Exam# [id number] Ordering Dr: Shan Jaeger DO PROCEDURE: EXTREMITY LOWER WITHOUT CONTRA 12/08/2024 REASON FOR EXAM: TEMPLATING FOR LEFT TKA TECHNIQUE: Axial CT images of the x-ray earlier today obtained with intravenous contrast. Coronal and Sagittal reconstruction series were provided. Multiple thin-section axial CT images of the left hip, left knee, and left anklewere obtained and filmed in bone windows and reconstructions were performed. One or more dose reduction techniques were used (e.g., Automated exposure control, adjustment of the mA and/or kV according to patient size, use of iterative reconstruction technique). FINDINGS: Bones: No acute fracture or dislocation. No lytic or blastic lesions. Joints: Moderate joint space narrowing of the hip joint consistent with moderatearthrosis. Status post anterior cruciate ligament reconstruction with surgical anchors. Severe joint space narrowing, osteophyte formation, and subchondral sclerosis of the medial compartment of the knee joint consistentwith severe arthrosis. Moderate joint space narrowing and osteophyte formation of the lateral compartment consistent with moderate arthrosis. Mild joint space narrowing and osteophyte formation of the patellofemoral compartment consistent with mild arthrosis. Soft Tissues: No abnormal soft tissue mass, lymphadenopathy, or fluid collection. CT/Extremity Lower without Contra IMPRESSION: Status post anterior cruciate ligament reconstruction. Severe arthrosis. Reading Location: [id number] CC: Dr. Carlos Bazzi MD; Dr. Shan Jaeger DO ~ Extension Service Specialist In Charge: Signed [facility] 12-08-2024 Radiology Diagnostic study note [facility] Imaging Services [address] [place], [place] [id number] Knee 4 or More Views MR#: [id number] Acct: [id number] Name: JACK SPRINGER Rep #: [id number] : 1960 M 64 From: Erika Demarco MD PCP: Dr. Carlos Bazzi MD Status: REG CLI Study:Knee 4 or More Views Date of Exam: 12/08/24 Exam# [id number] Ordering Dr: Shan Jaeger DO EXAM: XR Left Knee Complete, 4 or More Views CLINICAL INDICATION: PAIN, UPCOMING SURGERY TECHNIQUE: Four or more views of the left knee. COMPARISON: No relevant prior studies available. FINDINGS: BONES/JOINTS: Evidence of prior ligamentous repair. Intact hardware. Anatomicposition. Moderate degenerative changes of the medial compartment of the knee joint. No acute fracture. No dislocation. SOFT TISSUES: Mild soft tissue swelling. RAD/Knee 4 or More Views IMPRESSION: 1. Degenerative changes as above. 2. Postoperative changes as above. Reading Location: [id number] CC: Dr. Carlos Bazzi MD; Dr. Shan Jaeger DO ~ Extension Service Specialist In Charge: Signed [facility] 10-29-2024 Evaluation note Diagnosis Onset Date Resolution History of reconstruction of anterior cruciate ligament tear acute October 29, 2024 2:58pm Osteoarthritis of left knee acute October 29, 2024 2:58pm [facility] Work Phone: 1(537) 329-334302-24-2025 History of Present illness Narrative* Osman Morin PA-C - 10/08/2024 3:45 PM EST Subjective Patient ID: Jack Springer is a 63 y.o. male who presents for pt here for med check (Pt is coughing up blood , fever and chills ). HPI Currently with URI, started Zpack medrol dose pack yesterday, coughing up blood, higher temps at night, negative COVID/flu home test, 02 stable RA Review of Systems Constitutional: Positive for fatigue. Respiratory: Positive for cough. Cardiovascular: Negative. Gastrointestinal: Negative. Objective BP 118/78 Pulse 79 Ht 1.727 m (5' 8) Wt 114 kg (252 lb) SpO2 97% BMI 38.32 kg/m Physical Exam Constitutional: General: He is not in acute distress. Appearance: Normal appearance. He is not ill-appearing. HENT: Head: Normocephalic and atraumatic. Eyes: Extraocular Movements: Extraocular movements intact. Conjunctiva/sclera: Conjunctivae normal. Cardiovascular: Rate and Rhythm: Normal rate. Pulmonary: Effort: Pulmonary effort is normal. Abdominal: General: There is no distension. Musculoskeletal: General: Normal range of motion. Cervical back: Normal range of motion. Skin: General: Skin is warm and dry. Neurological: General: No focal deficit present. Mental Status: He is alert and oriented to person, place, and time. Psychiatric: Mood and Affect: Mood normal. Behavior: Behavior normal. Thought Content: Thought content normal. Judgment: Judgment normal. Assessment/Plan Chest Xray today Continue abx/steroid Follow up 3 months for physical, labs fasting prior documented in this [facility] Work Phone: 1(560) 414-277402-24-2025 History of Present illness Narrative* Olu Brady MD - 10/08/2024 2:15 PM EST Chief Complaint Patient presents with Results Stress test, echo, monitor f/u HPI: I was requested by Dr. Morin to evaluate this patient in consultation for cardiac assessment. Mr. Jack Springer is a 63 y.o. year old former smoker male patient with past medical history significant for hypertension, prediabetes, hyperlipidemia, HAYDEN, arthritis, obesity, coming for assessment of shortness of breath in the setting of elevated calcium scoring. Patient reports SOB on exertion. He denies chest pain, palpitations, leg edema, lightheadedness, headaches, fever, chills, orthopnea, paroxysmal nocturnal dyspnea or syncope. EKG shows normal sinus rhythm with no signs of acute ischemic changes. CT calcium scoring is elevated 479. LDL 151, HDL 39. Patient is currently asymptomatic. Unfortunately he has stopped taking Repatha due to financial issues. He is still on Ezetimibe. He is intolerant to statins. Past Medical History Past Medical History: Diagnosis Date Other fecal abnormalities 09/30/2021 Positive colorectal cancer screening using Cologuard test Past Surgical History Past Surgical History: Procedure Laterality Date OTHER SURGICAL HISTORY 09/18/2019 Meniscus repair Past Family History Family History Problem Relation Name Age of Onset Other (cardiac disorder) Mother Dementia Mother Stroke Father Alzheimer's disease Father Other ((CVA)) Other grandparent Diabetes Other grandparent Hyperlipidemia Other grandparent Allergy History Allergies Allergen Reactions Atorvastatin Other Simvastatin Other Past Social History Social History Socioeconomic History Marital status: Tobacco Use Smoking status: Former Types: Cigarettes Smokeless tobacco: Never Vaping Use Vaping status: Never Used Substance and Sexual Activity Alcohol use: Not Currently Drug use: Never Social History Tobacco Use Smoking Status Former Types: Cigarettes Smokeless Tobacco Never Objective Data: Last Recorded Vitals: Vitals: 10/08/24 1409 BP: 122/80 Pulse: 68 SpO2: 94% Weight: 115 kg (253 lb 9.6 oz) Height: 1.727 m (5' 8) Last Labs: CBC - 04/27/2024: 8:06 AM 5.4 15.0 202 47.2 CMP - 04/27/2024: 8:06 AM 9.1 6.3 21 --- 0.5 _ 4.1 20 45 PTT - No results in last year. _ _ _ HGBA1C Date/Time Value Ref Range Status 04/27/2024 08:06 AM 5.6 see below % Final 07/02/2022 09:52 AM 6.0 % Final Comment: Diagnosis of Diabetes-Adults Non-Diabetic: < or = 5.6% Increased risk for developing diabetes: 5.7-6.4% Diagnostic of diabetes: > or = 6.5% . Monitoring of Diabetes Age (y) Therapeutic Goal (%) Adults: >18 <7.0 Pediatrics: 13-18 <7.5 7-12 <8.0 0- 6 7.5-8.5 [employer]. Diabetes Care 33(S1), Aug 2009. LDLCALC Date/Time Value Ref Range Status 04/27/2024 08:06 AM 151 <=99 mg/dL Final Comment: Near Borderline AGE Desirable Optimal High High Very High 0-19 Y 0 - 109 --- 110-129 >/= 130 ---- 20-24 Y 0 - 119 --- 120-159 >/= 160 ---- >24 Y 0 - 99 100-129 130-159 160-189 >/=190 VLDL Date/Time Value Ref Range Status 04/27/2024 08:06 AM 52 0 - 40 mg/dL Final 07/02/2022 09:52 AM 36 0 - 40 mg/dL Final Patient Medications: Outpatient Encounter Medications as of 10/08/2024 Medication Sig Dispense Refill albuterol (Ventolin HFA) 90 mcg/actuation inhaler Inhale 2 puffs every 6 hours if needed for wheezing. 18 g 11 ascorbic acid, vitamin C, 500 mg capsule Take 1 tablet by mouth 1 (one) time each day. azithromycin (Zithromax) 250 mg tablet Take 2 tabs (500 mg) by mouth today, then take 1 tab daily for 4 days. 6 tablet 0 cholecalciferol (Vitamin D-3) 25 MCG (1000 UT) capsule Take 1 capsule (25 mcg) by mouth once daily. cyanocobalamin (Vitamin B-12) 100 mcg tablet Take 1 tablet (100 mcg) by mouth once daily. OTC ezetimibe (Zetia) 10 mg tablet Take 1 tablet (10 mg) by mouth once daily. 30 tablet 11 methylPREDNISolone (Medrol Dospak) 4 mg tablets Take as directed on package. 21 tablet 0 metoprolol tartrate (Lopressor) 100 mg tablet Take 0.5 tablets (50 mg) by mouth once daily at bedtime. (Patient taking differently: Take 0.5 tablets (50 mg) by mouth 2 times a day.) 90 tablet 3 evolocumab (Repatha SureClick) 140 mg/mL injection Inject 1 mL (140 mg) under the skin every 14 (fourteen) days. (Patient not taking: Reported on 10/08/2024) 2 mL 0 No facility-administered encounter medications on file as of 10/08/2024. Physical Exam: General: alert, oriented and in no acute distress. Obesity HEENT: NC/AT; EOMI; PERRLA, external ear is normal Neck: supple; trachea midline; no masses; no JVD Chest: clear breath sounds bilaterally; no wheezing Cardio: regular rhythm, S1S2 normal, no murmurs Abdomen: Soft, non-tender, non-distension, no organomegaly Extremities: no clubbing/cyanosis/edema Neuro: Grossly intact Psychiatric: Normal mood and affect Past Cardiology Results (Last 3 Years): EKG: ECG 12 lead (Clinic Performed) 08/31/2024 Echo: Echo Results: Transthoracic Echo (TTE) Limited With Contrast 09/24/2024 [place] [address] [phone], TRANSTHORACIC ECHOCARDIOGRAM REPORT Patient Name: JACK SPRINGER Reading Physician: [id number] Lorenzo Corrales MD Study Date: 09/24/2024 Ordering Provider: [id number] OLUDAKSHA RABAGO CAITLYN MRN/PID: [id number] Fellow: Nurse: Monet Calix RN Date of /Age: 3 1960 Manager Online: Payton LUCIANOT, BOWEN Gender Assigned at M Additional Staff: : Height: 172.72 cm Admit Date: Weight: 111.13 kg Admission Status: Outpatient BSA / BMI: 2.23 m2 / 37.25 Department Location: [facility] Echo Lab kg/m2 Blood Pressure: 150 /89 mmHg Study Type: TRANSTHORACIC ECHO (TTE) COMPLETE Diagnosis/ICD: Abnormal findings on diagnostic imaging of heart and coronary circulation-R93.1 Indication: Elevated Ca score CPT Codes: Echo Complete w Full [id number] Patient History: Pertinent History: No previous echo. Study Detail: The following Echo studies were performed: 2D, M-Mode, Doppler and color flow. Definity used as a contrast agent for endocardial border definition. Total contrast used for this procedure was 2 mL via IV push. A bubble study was not performed. The patient was awake. PHYSICIAN INTERPRETATION: Left Ventricle: Left ventricular ejection fraction is normal, by visual estimate at 60-65%. There are no regional wall motion abnormalities. The left ventricular cavity size is normal. There is mild increased septal and mildly increased posterior left ventricular wall thickness. There is left ventricular concentric remodeling. Spectral Doppler shows a Grade I (impaired relaxation pattern) of leftventricular diastolic filling with normal left atrial filling pressure. Left Atrium: The left atrial size is normal. A bubble study using agitated saline was not performed. Right Ventricle: The right ventricle is normal in size. There is normal right ventricular global systolic function. Right Atrium: The right atrial size is normal. Aortic Valve: The aortic valve was not well visualized. The aortic valve dimensionless index is 0.76. There is no evidence of aortic valve regurgitation. The peak instantaneous gradient of the aorticvalve is 9 mmHg. The mean gradient of the aortic valve is 4 mmHg. Mitral Valve: The mitral valve is normal in structure. There is no evidence of mitral valve regurgitation. Tricuspid Valve: The tricuspid valve is structurally normal. No evidence of tricuspid regurgitation. Pulmonic Valve: The pulmonic valve is structurally normal. There is no indication of pulmonic valveregurgitation. Pericardium: No pericardial effusion noted. Aorta: The aortic root is normal. CONCLUSIONS: 1. Left ventricular ejection fraction is normal, by visual estimate at 60-65%. 2. Spectral Doppler shows a Grade I (impaired relaxation pattern) of left ventricular diastolic filling with normal left atrial filling pressure. 3. There is normal right ventricular global systolic function. QUANTITATIVE DATA SUMMARY: 2D MEASUREMENTS: Normal Ranges: Ao Root d: 2.90 cm (2.0-3.7cm) LAs: 2.90 cm (2.7-4.0cm) IVSd: 1.14 cm (0.6-1.1cm) LVPWd: 1.13 cm (0.6-1.1cm) LVIDd: 3.69 cm (3.9-5.9cm) LVIDs: 2.44 cm LV Mass Index: 60.6 g/m2 LVEDV Index: 67.28 ml/m2 LV % FS 33.9 % LEFT ATRIUM: Normal Ranges: LA Vol A4C: 42.5 ml (22+/-6mL/m2) LA Vol A2C: 60.5 ml LA Vol BP: 51.7 ml LA Vol Index A4C: 19.1ml/m2 LA Vol Index A2C: 27.1 ml/m2 LA Vol Index BP: 23.2 ml/m2 LA Area A4C: 16.3 cm2 LA Area A2C: 19.8 cm2 LA Major [place] A4C: 5.3 cm LA Major [place] A2C: 5.5 cm LA Volume Index: 27.4 ml/m2 LA Vol A4C: 40.8 ml LA Vol A2C: 61.2 ml LA Vol Index BSA: 22.9 ml/m2 M-MODE MEASUREMENTS: Normal Ranges: AoV Exc: 1.50 cm (1.5-2.5cm) AORTA MEASUREMENTS: Normal Ranges: AoV Exc: 1.50 cm (1.5-2.5cm) LV SYSTOLIC FUNCTION: Normal Ranges: EF-A4C View: 56 % (>=55%) EF-A2C View: 71 % EF-Biplane: 66 % EF-Visual: 63 % LV EF Reported: 63 % LV DIASTOLIC FUNCTION: Normal Ranges: MV Peak E: 0.94 m/s (0.7-1.2 m/s) MV Peak A: 0.90 m/s (0.42-0.7 m/s) E/A Ratio: 1.04 (1.0-2.2) MV e' 0.106 m/s (>8.0) MV lateral e' 0.14 m/s MV medial e' 0.08 m/s E/e' Ratio: 8.82 (<8.0) MITRAL VALVE: Normal Ranges: MV DT: 275 msec (150-240msec) MITRAL INSUFFICIENCY: Normal Ranges: MR Vmax: 319.00 cm/s AORTIC VALVE: Normal Ranges: AoV Vmax: 1.46 m/s (<=1.7m/s) AoV Peak P.5 mmHg (<20mmHg) AoV Mean P.0 mmHg (1.7-11.5mmHg) LVOT Max Juanjo: 1.17 m/s (<=1.1m/s) AoV VTI: 31.30 cm (18-25cm) LVOT VTI: 23.80 cm LVOT Diameter: 1.80 cm (1.8-2.4cm) AoV Area, VTI: 1.93 cm2 (2.5-5.5cm2) AoV Area,Vmax: 2.04 cm2 (2.5-4.5cm2) AoV Dimensionless Index: 0.76 RIGHT VENTRICLE: RV Basal 3.59 cm RV Mid 2.50 cm RV Major 6.8 cm TAPSE: 21.2 mm TRICUSPID VALVE/RVSP: Normal Ranges: Peak TR Velocity: 2.62 m/s RV Syst Pressure: 30 mmHg (< 30mmHg) PULMONIC VALVE: Normal Ranges: PV Accel Time: 88 msec (>120ms) PV Max Juanjo: 1.2 m/s (0.6-0.9m/s) PV Max P.9 mmHg [id number] Lorenzo Corrales MD Electronically signed on 09/24/2024 at 12:01:19 PM Final Cath: No results found for this or any previous visit from the past 1095 days. CV NCDR CATHPCI V5 COLLECTION FORM Stress Test: Nuclear Stress Test 09/24/2024 Cardiac Imaging: No results found for this or any previous visit from the past 1095 days. Assessment/Plan Mr. Jack Springer is a 63 y.o. year old former smoker male patient with past medical history significant for hypertension, prediabetes, hyperlipidemia, HAYDEN, arthritis, obesity, coming for assessment of shortness of breath in the setting of elevated calcium scoring. Patient reports SOB on exertion. He denies chest pain, palpitations, leg edema, lightheadedness, headaches, fever, chills, orthopnea, paroxysmal nocturnal dyspnea or syncope. Assessment # Atherosclerosis - EKG shows normal sinus rhythm with no signs of acute ischemic changes. - CT calcium scoring is elevated 479. - LDL 151, HDL 39. - Patient with known atherosclerotic disease, implying significant increased risk for major adversecardiac events. - Keep beta-carline - Metoprolol tartrate 50mg nightly. - We had a thorough conversation with the patient about the natural history of atherosclerosis and the importance for commitment with healthy lifestyle, including but not limited to healthy diet, regular exercises, avoid sedentary and compliance to medication. - Treadmill nuclear stress test was negative for ischemia. However, with a post- stress LVEF 47%. - Echocardiogram (08/31/2024): 1. Left ventricular ejection fraction is normal, by visual estimate at 60-65%. 2. Spectral Doppler shows a Grade I (impaired relaxation pattern) of left ventricular diastolic filling with normal left atrial filling pressure. 3. There is normal right ventricular global systolic function. - 48h holter monitor: *48h holter monitor. *The predominant rhythm was Sinus *The Maximum Heart Rate recorded was 104 bpm, 09/24 22:18:30, the Minimum Heart Rate recorded was 42 bpm, 09/25 04:33:43, and the Average Heart Rate was 60 bpm. *There were 11 VE beats with a burden of <1 %. *There was 1 Patient Trigger. *No signs of atrial fibrillation, atrial flutter, sinus pauses or sustained malignant arrhythmias. - Patient is currently asymptomatic. Unfortunately he has stopped taking Repatha due to financial issues. He is still on Ezetimibe. He is intolerant to statins. - Follow up yearly. # Hyperlipidemia - Controlled by PCP. - LDL 151, HDL 39. - Intolerant to statins. - Unfortunately he has stopped taking Repatha due to financial issues. He is still on Ezetimibe. - Counseled on healthy diet and regular exercise. # Obesity - Discuss Mounjaro / Ozempic with PCP # HAYDEN - Keep CPAP We have discussed the most common side effects of the prescribed medications, indications, drug interactions, risks, complications, and alternatives of medications/therapeutics were explained and discussed. The patient has been requested to monitor closely for any untoward side effects or complications of medications. The patient has been strongly advised to be compliant with the recommendations,all the questions and concerns have been addressed. The patient has been also instructed to call, to return sooner or to go to the emergency department if symptoms persist or get worsen. The patient voiced understanding and denies any further questions at this time. This note was transcribed using the [employer] Dictation system. There may be grammatical, punctuation,or verbiage errors that occur with voice recognition programs. Counseling greater than 50% of visit regarding all cardiac issues. Thank you, Dr. Morin, for allowing me to participate in the care of this patient. Please do not hesitate to contact me with any further questions or concerns. Olu Brady MD Cardiology documented in this [facility] Work Phone: [phone] History of Present illness Narrative* Olu Brady MD - 08/31/2024 11:15 AM EST Chief Complaint Patient presents with Elevated Calcium Score HPI: I was requested by Dr. Morin to evaluate this patient in consultation for cardiac assessment. Mr. Jack Springer is a 63 y.o. year old former smoker male patient with past medical history significant for hypertension, prediabetes, hyperlipidemia, HAYDEN, arthritis, obesity, coming for assessment of shortness of breath in the setting of elevated calcium scoring. Patient reports SOB on exertion. He denies chest pain, palpitations, leg edema, lightheadedness, headaches, fever, chills, orthopnea, paroxysmal nocturnal dyspnea or syncope. EKG shows normal sinus rhythm with no signs of acute ischemic changes. CT calcium scoring is elevated 479. LDL 151, HDL 39. Past Medical History Past Medical History: Diagnosis Date Other fecal abnormalities 09/30/2021 Positive colorectal cancer screening using Cologuard test Past Surgical History Past Surgical History: Procedure Laterality Date OTHER SURGICAL HISTORY 09/18/2019 Meniscus repair Past Family History Family History Problem Relation Name Age of Onset Other (cardiac disorder) Mother Dementia Mother Stroke Father Alzheimer's disease Father Other ((CVA)) Other grandparent Diabetes Other grandparent Hyperlipidemia Other grandparent Allergy History Allergies Allergen Reactions Atorvastatin Other Simvastatin Other Past Social History Social History Socioeconomic History Marital status: Tobacco Use Smoking status: Former Types: Cigarettes Smokeless tobacco: Never Vaping Use Vaping status: Never Used Substance and Sexual Activity Alcohol use: Not Currently Drug use: Never Social History Tobacco Use Smoking Status Former Types: Cigarettes Smokeless Tobacco Never Review of Systems: Tobacco Use: Medium Risk (08/31/2024) Patient History Smoking Tobacco Use: Former Smokeless Tobacco Use: Never Passive Exposure: Not on file Objective Data: Last Recorded Vitals: Vitals: 08/31/24 1132 BP: 120/80 Pulse: 55 SpO2: 95% Weight: 113 kg (250 lb) Height: 1.727 m (5' 8) Last Labs: CBC - 04/27/2024: 8:06 AM 5.4 15.0 202 47.2 CMP - 04/27/2024: 8:06 AM 9.1 6.3 21 --- 0.5 _ 4.1 20 45 PTT - No results in last year. _ _ _ HGBA1C Date/Time Value Ref Range Status 04/27/2024 08:06 AM 5.6 see below % Final 07/02/2022 09:52 AM 6.0 % Final Comment: Diagnosis of Diabetes-Adults Non-Diabetic: < or = 5.6% Increased risk for developing diabetes: 5.7-6.4% Diagnostic of diabetes: > or = 6.5% . Monitoring of Diabetes Age (y) Therapeutic Goal (%) Adults: >18 <7.0 Pediatrics: 13-18 <7.5 7-12 <8.0 0- 6 7.5-8.5 [employer]. Diabetes Care 33(S1), Aug 2009. LDLCALC Date/Time Value Ref Range Status 04/27/2024 08:06 AM 151 <=99 mg/dL Final Comment: Near Borderline AGE Desirable Optimal High High Very High 0-19 Y 0 - 109 --- 110-129 >/= 130 ---- 20-24 Y 0 - 119 --- 120-159 >/= 160 ---- >24 Y 0 - 99 100-129 130-159 160-189 >/=190 VLDL Date/Time Value Ref Range Status 04/27/2024 08:06 AM 52 0 - 40 mg/dL Final 07/02/2022 09:52 AM 36 0 - 40 mg/dL Final Patient Medications: Outpatient Encounter Medications as of 08/31/2024 Medication Sig Dispense Refill albuterol (Ventolin HFA) 90 mcg/actuation inhaler Inhale 2 puffs every 6 hours if needed for wheezing. 18 g 11 ascorbic acid, vitamin C, 500 mg capsule Take 1 tablet by mouth 1 (one) time each day. metoprolol tartrate (Lopressor) 100 mg tablet Take 0.5 tablets (50 mg) by mouth once daily at bedtime. 90 tablet 3 cholecalciferol (Vitamin D-3) 25 MCG (1000 UT) capsule Take 1 capsule (25 mcg) by mouth once daily. cyanocobalamin (Vitamin B-12) 100 mcg tablet Take 1 tablet (100 mcg) by mouth once daily. OTC No facility-administered encounter medications on file as of 08/31/2024. Physical Exam: General: alert, oriented and in no acute distress. Obesity HEENT: NC/AT; EOMI; PERRLA, external ear is normal Neck: supple; trachea midline; no masses; no JVD Chest: clear breath sounds bilaterally; no wheezing Cardio: regular rhythm, S1S2 normal, no murmurs Abdomen: Soft, non-tender, non-distension, no organomegaly Extremities: no clubbing/cyanosis/edema Neuro: Grossly intact Psychiatric: Normal mood and affect Past Cardiology Results (Last 3 Years): EKG: No results found for this or any previous visit from the past 1095 days. Echo: Echo Results: No results found for this or any previous visit from the past 365 days. Cath: No results found for this or any previous visit from the past 1095 days. CV NCDR CATHPCI V5 COLLECTION FORM Stress Test: No results found for this or any previous visit from the past 1095 days. Cardiac Imaging: No results found for this or any previous visit from the past 1095 days. Assessment/Plan Mr. Jack Springer is a 63 y.o. year old former smoker male patient with past medical history significant for hypertension, prediabetes, hyperlipidemia, HAYDEN, arthritis, obesity, coming for assessment of shortness of breath in the setting of elevated calcium scoring. Patient reports SOB on exertion. He denies chest pain, palpitations, leg edema, lightheadedness, headaches, fever, chills, orthopnea, paroxysmal nocturnal dyspnea or syncope. # Atherosclerosis - EKG shows normal sinus rhythm with no signs of acute ischemic changes. - CT calcium scoring is elevated 479. - LDL 151, HDL 39. - Patient with known atherosclerotic disease, implying significant increased risk for major adversecardiac events. - Keep beta-carline - Metoprolol tartrate 50mg nightly. - We had a thorough conversation with the patient about the natural history of atherosclerosis and the importance for commitment with healthy lifestyle, including but not limited to healthy diet, regular exercises, avoid sedentary and compliance to medication. - We will request treadmill nuclear stress test, echocardiogram, 48h holter monitor. - Follow up after tests. # Hyperlipidemia - Controlled by PCP. - LDL 151, HDL 39. - Intolerant to statins. - Would suggest Repatha / Ezetimibe - Counseled on healthy diet and regular exercise. # Obesity - Discuss Mounjaro / Ozempic with PCP # HAYDEN - Keep CPAP We have discussed the most common side effects of the prescribed medications, indications, drug interactions, risks, complications, and alternatives of medications/therapeutics were explained and discussed. The patient has been requested to monitor closely for any untoward side effects or complications of medications. The patient has been strongly advised to be compliant with the recommendations,all the questions and concerns have been addressed. The patient has been also instructed to call, to return sooner or to go to the emergency department if symptoms persist or get worsen. The patient voiced understanding and denies any further questions at this time. This note was transcribed using the [employer] Dictation system. There may be grammatical, punctuation,or verbiage errors that occur with voice recognition programs. Counseling greater than 50% of visit regarding all cardiac issues. Thank you, Dr. Morin, for allowing me to participate in the care of this patient. Please do not hesitate to contact me with any further questions or concerns. Olu Brady MD Cardiology documented in this [facility] Work Phone: [phone]) [phone] History of Present illness Narrative* Osman Morin PA-C - 04/06/2024 4:15 PM EDT Subjective Patient ID: Jack Springer is a 63 y.o. male who presents for med check (PT is here today for a med check. reports when he gets up in the morning his pulse is 40's, reports this is not all thetime. Denies sx with his pulse this low. Reports he is fatigued and not a lot of energy. ). HPI HTN: Good in office today 121/74. Compliant with metoprolol 50mg nightly, no SE. Denies CP/SOB/visual changes/dizziness. HYPERLIPIDEMIA: Need to check level. PREDIABETES: Need to check A1C. HAYDEN: Does not wear CPAP. Would not like sleep study. SOB ON EXERTION: Will use rescue about twice monthly. Stable currently, would not like PFTs at thistime. Colonoscopy with a few polyps 10/20/21, due again 2026. PSA WNL last check. Review of Systems Constitutional: Negative. Respiratory: Negative. Cardiovascular: Negative. Gastrointestinal: Negative. Objective BP (!) 142/94 Pulse 64 Ht 1.727 m (5' 8) Wt 110 kg (241 lb 14.4 oz) SpO2 91% BMI 36.78 kg/m Physical Exam Constitutional: General: He is not in acute distress. Appearance: Normal appearance. He is not ill-appearing. HENT: Head: Normocephalic and atraumatic. Eyes: Extraocular Movements: Extraocular movements intact. Conjunctiva/sclera: Conjunctivae normal. Cardiovascular: Rate and Rhythm: Normal rate. Pulmonary: Effort: Pulmonary effort is normal. Abdominal: General: There is no distension. Musculoskeletal: General: Normal range of motion. Cervical back: Normal range of motion. Skin: General: Skin is warm and dry. Neurological: General: No focal deficit present. Mental Status: He is alert and oriented to person, place, and time. Psychiatric: Mood and Affect: Mood normal. Behavior: Behavior normal. Thought Content: Thought content normal. Judgment: Judgment normal. Assessment/Plan No medication changes today. Fasting labs soon. Follow up 6 months or sooner prn. documented in this [facility] Work Phone: [phone] 565-959606-16-2023 History of Present illness Narrative* Osman Morin PA-C - 01/28/2023 8:00 AM EDT Subjective Patient ID: Jack Springer is a 62 y.o. male who presents for 3 month med check, discuss weight loss medication. HPI HTN: Good in office today 128/82. Does not check at home. Compliant with losartan 50mg daily, no SE. Denies CP/SOB/visual changes/dizziness. HYPERLIPIDEMIA: Lipids slightly elevated 07/02/22. PREDIABETES: A1C 6% 07/02/22. This is normal for him. LEFT KNEE PAIN: 20 years ago had ACL surgery on L knee. Will need surgery eventually, has received gel shots in knee in the past with some success. HAYDEN: Does not wear CPAP. Endorses difficulty sleeping d/t eating late and some joint pain. He does have CPAP at home which he does not use. He will use Tylenol PM with effect. SOB ON EXERTION: Will use rescue about twice monthly. Stable currently, would not like PFTs at thistime. OBESITY: Has struggled with weight loss for years now. Tries to maintain healthy diet and exercise by working outside. JOINT PAIN: Endorses multiple joint pain chronically. Knees/elbows/hips/feet. Colonoscopy with a few polyps 10/20/21, due again 2026. PSA WNL 07/02/22. Will get Shingrix soon. Review of Systems Constitutional: Negative. Respiratory: Negative. Cardiovascular: Negative. Gastrointestinal: Negative. Objective BP 128/82 Pulse 65 Ht 1.727 m (5' 8) Wt 115 kg (253 lb) BMI 38.47 kg/m Physical Exam Constitutional: General: He is not in acute distress. Appearance: Normal appearance. He is not ill-appearing. HENT: Head: Normocephalic and atraumatic. Eyes: Extraocular Movements: Extraocular movements intact. Conjunctiva/sclera: Conjunctivae normal. Cardiovascular: Rate and Rhythm: Normal rate. Pulmonary: Effort: Pulmonary effort is normal. Abdominal: General: There is no distension. Musculoskeletal: General: Normal range of motion. Cervical back: Normal range of motion. Skin: General: Skin is warm and dry. Neurological: General: No focal deficit present. Mental Status: He is alert and oriented to person, place, and time. Psychiatric: Mood and Affect: Mood normal. Behavior: Behavior normal. Thought Content: Thought content normal. Judgment: Judgment normal. Assessment/Plan Rx ozempic for prediabetes and weight loss. No other medication changes today. Advised he get some Volteran gel prn joint pain. We will follow up in 3 months. documented in this [facility] Work Phone: [phone] History of Present illness Narrative* Osman Morin PA-C - 10/29/2022 9:00 AM EDT Subjective Patient ID: Jack Springer is a 61 y.o. male who presents for 3 month med check (Pt would like todiscuss having and inhaler prescribed). HPI URI better HTN: Good in office today 130/80. Similar readings at home. Compliant with losartan 50mg daily, no SE. Denies CP/SOB/visual changes/dizziness. HYPERLIPIDEMIA: Lipids slightly elevated 07/02/22. PREDIABETES: A1C 6% 07/02/22. This is normal for him. LEFT KNEE PAIN: 20 years ago had ACL surgery on L knee. Will need surgery eventually, has received gel shots in knee in the past with some success. HAYDEN: Does not wear CPAP. Endorses difficulty sleeping d/t eating late and some joint pain. He does have CPAP at home which he does not use. He will use Tylenol PM with effect. SOB ON EXERTION: Endorses difficulty with SOB on both exertion and at rest occasionally. Uses inhaler about 2-3 times monthly. Colonoscopy with a few polyps 10/20/21, due again 2026. PSA WNL 07/02/22. Will get Shingrix soon. Recent URI mainly resolved after Augmentin and prednisone. Both him and his are going to really start working on healthier diet and exercise. Review of Systems Constitutional: Negative. Respiratory: Negative. Cardiovascular: Negative. Gastrointestinal: Negative. Objective BP 130/80 Pulse 72 Ht 1.727 m (5' 8) Wt 116 kg (256 lb) BMI 38.92 kg/m Physical Exam Constitutional: General: He is not in acute distress. Appearance: Normal appearance. He is not ill-appearing. HENT: Head: Normocephalic and atraumatic. Eyes: Extraocular Movements: Extraocular movements intact. Conjunctiva/sclera: Conjunctivae normal. Cardiovascular: Rate and Rhythm: Normal rate. Pulmonary: Effort: Pulmonary effort is normal. Abdominal: General: There is no distension. Musculoskeletal: General: Normal range of motion. Cervical back: Normal range of motion. Skin: General: Skin is warm and dry. Neurological: General: No focal deficit present. Mental Status: He is alert and oriented to person, place, and time. Psychiatric: Mood and Affect: Mood normal. Behavior: Behavior normal. Thought Content: Thought content normal. Judgment: Judgment normal. Assessment/Plan Refilled losartan 50mg, refilled inhaler We will follow up in 3 months and see how the weight loss is progressing. May get labs then. documented in this [facility] Work Phone: [phone] History of Present illness Narrative* Osman Morin PA-C - 10/21/2022 10:00 AM EST Subjective Patient ID: Jack Springer is a 61 y.o. male who presents for Sore Throat and Cough (Sinus drainage, productive cough, x6 days, vomiting on Tuesday ). Sore Throat Associated symptoms include coughing. Cough Associated symptoms include a sore throat. URI: 6 days of flu-like symptoms. Sore throat, WINTERS, coughing productive, intermittent fever, home COVID negative, a few episodes of vomitus 3 days ago, congestion. Review of Systems Constitutional: Negative. HENT: Positive for sore throat. Respiratory: Positive for cough. Cardiovascular: Negative. Gastrointestinal: Negative. Objective BP 124/78 Pulse 84 Temp 36.5 C (97.7 F) Ht 1.727 m (5' 8) Wt 113 kg (250 lb) BMI 38.01 kg/m Physical Exam HENT: Mouth/Throat: Mouth: Mucous membranes are moist. Comments: Mild pharyngeal erythema Pulmonary: Effort: Pulmonary effort is normal. No respiratory distress. Breath sounds: Normal breath sounds. No stridor. No wheezing, rhonchi or rales. Assessment/Plan Rx Augmentin x10 days. Otc symptomatic control to include Tylenol prn fever, rest/hydrate Follow [facility]n [facility] Evaluation noteNo assessment information available [facility] Work Phone: Evaluation note* Diagnosis Prediabetes- Primary Other abnormal glucose Hypertension, unspecified type Arthralgia, unspecified joint documented in this encounter [facility] Work Phone: Evaluation note* Diagnosis Elevated coronary artery calcium score- Primary [facility] Hypertension, unspecified type- Primary SOB (shortness of breath) Shortness of breath documented in this encounter [facility] Work Phone: Evaluation note* Diagnosis Upper respiratory tract infection, unspecified type- Primary documented in this encounter [facility] Work Phone: Evaluation note* Diagnosis Prediabetes- Primary Other abnormal glucose Hypertension, unspecified type Screening for prostate cancer Special screening for malignant neoplasm of prostate Screening cholesterol level Screening for lipoid disorders Screening for thyroid disorder Fatigue, unspecified type documented in this encounter [facility] Work Phone: Evaluation note* Diagnosis Screening for cardiovascular condition Screening for other and unspecified cardiovascular conditions documented in this encounter [facility] Work Phone: Evaluation note* Diagnosis Hypertension, unspecified type- Primary Elevated coronary artery calcium score Hyperlipidemia, unspecified hyperlipidemia type Prediabetes Other abnormal glucose Class 2 severe obesity with serious comorbidity and body mass index (BMI) of 38.0 to 38.9 in adult, unspecified obesity type SOB (shortness of breath) Shortness of breath Arthralgia, unspecified joint Moderate obstructive sleep apnea documented in this encounter [facility] Work Phone: [phone] note* Diagnosis Elevated coronary artery calcium score Elevated coronary artery calcium score documented in this encounter [facility] Work Phone: [phone] note* Diagnosis Elevated coronary artery calcium score Elevated coronary artery calcium score documented in this encounter [facility] Work Phone: [phone] note* Diagnosis Elevated coronary artery calcium score documented in this encounter [facility] Work Phone: [phone] note* Diagnosis Elevated coronary artery calcium score documented in this encounter [facility] Work Phone: [phone] note* Diagnosis Atherosclerosis- Primary Arthralgia, unspecified joint Moderate obstructive sleep apnea SOB (shortness of breath) Shortness of breath Class 2 severe obesity with serious comorbidity and body mass index (BMI) of 38.0 to 38.9 in adult, unspecified obesity type Prediabetes Other abnormal glucose Hypertension, unspecified type Hyperlipidemia, unspecified hyperlipidemia type Elevated coronary artery calcium score documented in this encounter [facility] Work Phone: [phone] note* Diagnosis Primary insomnia- Primary Persistent disorder of initiating or maintaining sleep Upper respiratory tract infection, unspecified type Screening cholesterol level Screening for lipoid disorders Hypertension, unspecified type Prediabetes Other abnormal glucose Screening for prostate cancer Special screening for malignant neoplasm of prostate Mixed hyperlipidemia Vitamin B12 deficiency Other B-complex deficiencies Vitamin D deficiency documented in this encounter [facility] Work Phone: [phone] note* Diagnosis Upper respiratory tract infection, unspecified type documented in this encounter [facility] Work Phone: [phone] note* Diagnosis Hypertension, unspecified type- Primary SOB (shortness of breath) Shortness of breath Primary insomnia Persistent disorder of initiating or maintaining sleep Fatigue, unspecified type Other general symptoms and signs Mixed hyperlipidemia documented in this encounter [facility] Work Phone: [phone] for referral (narrative)* Consultation (Routine) - Authorized Specialty Diagnoses / Procedures Referred By Leticia t Referred To Contact Primary Care Procedures Follow Up In Primary Care Osman Morin PA-C [address] [facility] [place], [address] [address] Referral ID Status Reason Start Date Expiration Date V isits Requested Visits Authorized [id number] Authorized 01/28/2023 07/27/2023 1 1 [facility] Work Phone: [employer] for referral (narrative)* Outpatient Procedure (Routine) - Pending Review Specialty Diagnoses / Procedures Referred By Leticia cox Referred To Contact [facility] Diagnoses Elevated coronary artery calcium score Procedures ECG COMPLETE ECG ROUTINE ECG W/LEAST 12 LDS W/I&R George Hanna MD [place] [id number] [facility] [address] Referral ID Status Reason Start Date Expiration Date Visits Requested Visits Authorized [id number] Pending Review Auto-Generat ed Referral 05/07/2024 05/07/2025 [address] [facility] for referral (narrative)* Consultation (Routine) - Authorized Specialty Diagnoses / Procedures Referred By Contgreg t Referred To Contact Primary Care Diagnoses Hypertension, unspecified type Procedures Follow Up In Primary Care Osman Morin PA-C [address] [facility] [place], [address] [address] Referral ID Status Reason Start Date Expiration Date V isits Requested Visits Authorized [id number] Authorized 10/29/2022 04/27/2023 1 1 [facility] Work Phone: [employer] for referral (narrative)* Consultation (Routine) - Authorized Specialty Diagnoses / Procedures Referred By Contac t Referred To Contact Primary Care Procedures Follow Up In Primary Care - Established Osman Morin PA-C [address] [facility] [place], [facility] [address] [id number] Referral ID Status Reason Start Date Expiration Date V isits Requested Visits Authorized [id number] Authorized 04/06/2024 04/06/2025 1 1 [facility] Work Phone: Reason for referral (narrative)No reason for referral [facility] Work Phone: Reason for referral (narrative)* Consultation (Routine) - Authorized Specialty Diagnoses / Procedures Referred By Contac t Referred To Contact Primary Care Procedures Follow Up In Primary Care - Established Osman Morin PA-C [address] [facility] [place], [place] [id number] Phone: tel: fax: Referral ID Status Reason Start Date Expiration Date V isits Requested Visits Authorized [id number] Authorized 12/14/2024 12/14/2025 1 1 [facility] Work Phone: Reviev for visit Narrative* Cardiac Stress Testing (Routine) - Authorized Specialty Diagnoses / Procedures Referred By Contac t Referred To Contact Cardiology Diagnoses Elevated coronary artery calcium score Procedures Nuclear Stress Test CHG MYOCARDIAL SPECT MULTIPLE STUDIES Olu Claire MD [address] [place] [address], [facility] [address] [place] [address] Phone: tel: fax: Referral ID Status Reason Start Date Expiration Date Visits Requested Visits Authorized [id number] Authorized Perform Procedure 08/31/2024 08/31/2025 5 5 [facility] Work Phone: Rennhf for visit Narrative* Cardiac Stress Testing (Routine) - Authorized Specialty Diagnoses / Procedures Referred By Contac t Referred To Contact Cardiology Diagnoses Elevated coronary artery calcium score Procedures Nuclear Stress Test CHG MYOCARDIAL SPECT MULTIPLE STUDIES Olu Claire MD [address] [facility], [address] [address] Phone: tel: fax: Referral ID Status Reason Start Date Expiration Date Visits Requested Visits Authorized [id number] Authorized Perform Procedure 08/31/2024 08/31/2025 5 5 [facility] Work Phone: reason for visit Narrative* CV Imaging (Routine) - Authorized Specialty Diagnoses / Procedures Referred By Contac t Referred To Contact Cardiology Diagnoses Elevated coronary artery calcium score Procedures Transthoracic Echo Complete CA ECHO TTHRC R-T 2D W/WOM-MODE COMPL SPEC&COLR D Olu Claire MD [address] [facility], [place] [id number] Phone: tel: fax: Referral ID Status Reason Start Date Expiration Date Visits Requested Visits Authorized [id number] Authorized Perform Procedure 08/31/2024 08/31/2025 1 1 [facility] Work Phone: reason for visit Narrative* Cardiovascular (Routine) - Authorized Specialty Diagnoses / Procedures Referred By Contac t Referred To Contact Cardiology Diagnoses Elevated coronary artery calcium score Procedures Holter Or Event Bag Filler Olu Claire MD [address] [facility], [place] [id number] Phone: tel: fax: Referral ID Status Reason Start Date Expiration Date V isits Requested Visits Authorized [id number] Authorized 08/31/2024 08/31/2025 1 1 [facility] Work Phone: reason for visit Narrative* Imaging (Routine) - Authorized Specialty Diagnoses / Procedures Referred By Contac t Referred To Contact Radiology Diagnoses Upper respiratory tract infection, unspecified type Procedures XR chest 2 views Osman Morin PA-C [address] [facility], [address] [place] [address] Phone: tel: fax: Referral ID Status Reason Start Date Expiration Date Visits Requested Visits Authorized [id number] Authorized Perform Procedure 10/08/2024 10/08/2025 1 1 [facility] Work Phone: Summary Purpose Family History No Family History Records FoundUnknown Family Member Name Dates Details Family history of cardiac di sorder: Father(V17.49, Z82.49) Status:Active Family history of diabetes m ellitus: Grandparent(V18.0, Z83.3) Status:Active Family history of hyperlipid emia: Grandparent(V18.19, Z83.438) Status:Active Family history of cerebrovas cular accident (CVA): Grandparent(V17.1, Z82.3) Status:Active Unknown Family Member Name Dates Details Family history of cardiac di sorder: Father(V17.49, Z82.49) Status:Active Family history of diabetes m ellitus: Grandparent(V18.0, Z83.3) Status:Active Family history of hyperlipid emia: Grandparent(V18.19, Z83.438) Status:Active Family history of cerebrovas cular accident (CVA): Grandparent(V17.1, Z82.3) Status:Active Unknown Family Member Name Dates Details Family history of cardiac di sorder: Father(V17.49, Z82.49) Status:Active Family history of diabetes m ellitus: Grandparent(V18.0, Z83.3) Status:Active Family history of hyperlipid emia: Grandparent(V18.19, Z83.438) Status:Active Family history of cerebrovas cular accident (CVA): Grandparent(V17.1, Z82.3) Status:Active Unknown Family Member Name Dates Details Family history of cardiac di sorder: Father(V17.49, Z82.49) Status:Active Family history of diabetes m ellitus: Grandparent(V18.0, Z83.3) Status:Active Family history of hyperlipid emia: Grandparent(V18.19, Z83.438) Status:Active Family history of cerebrovas cular accident (CVA): Grandparent(V17.1, Z82.3) Status:Active Unknown Family Member Name Dates Details Family history of cerebrovas cular accident (CVA): Grandparent(V17.1, Z82.3) Status:Active Family history of hyperlipid emia: Grandparent(V18.19, Z83.438) Status:Active Family history of diabetes m ellitus: Grandparent(V18.0, Z83.3) Status:Active Family history of cardiac di sorder: Father(V17.49, Z82.49) Status:Active Unknown Family Member Name Dates Details Family history of cardiac di sorder: Father(V17.49, Z82.49) Status:Active Family history of diabetes m ellitus: Grandparent(V18.0, Z83.3) Status:Active Family history of hyperlipid emia: Grandparent(V18.19, Z83.438) Status:Active Family history of cerebrovas cular accident (CVA): Grandparent(V17.1, Z82.3) Status:Active Unknown Family Member Name Dates Details Family history of cardiac di sorder: Father(V17.49, Z82.49) Status:Active Family history of diabetes m ellitus: Grandparent(V18.0, Z83.3) Status:Active Family history of hyperlipid emia: Grandparent(V18.19, Z83.438) Status:Active Family history of cerebrovas cular accident (CVA): Grandparent(V17.1, Z82.3) Status:Active Unknown Family Member Name Dates Details Family history of cerebrovas cular accident (CVA): Grandparent(V17.1, Z82.3) Status:Active Family history of hyperlipid emia: Grandparent(V18.19, Z83.438) Status:Active Family history of diabetes m ellitus: Grandparent(V18.0, Z83.3) Status:Active Family history of cardiac di sorder: Father(V17.49, Z82.49) Status:Active Unknown Family Member Name Dates Details Family history of cardiac di sorder: Father(V17.49, Z82.49) Status:Active Family history of diabetes m ellitus: Grandparent(V18.0, Z83.3) Status:Active Family history of hyperlipid emia: Grandparent(V18.19, Z83.438) Status:Active Family history of cerebrovas cular accident (CVA): Grandparent(V17.1, Z82.3) Status:Active Unknown Family Member Name Dates Details Family history of cardiac di sorder: Father(V17.49, Z82.49) Status:Active Family history of diabetes m ellitus: Grandparent(V18.0, Z83.3) Status:Active Family history of hyperlipid emia: Grandparent(V18.19, Z83.438) Status:Active Family history of cerebrovas cular accident (CVA): Grandparent(V17.1, Z82.3) Status:Active Unknown Family Member Name Dates Details Family history of cardiac di sorder: Father(V17.49, Z82.49) Status:Active Family history of diabetes m ellitus: Grandparent(V18.0, Z83.3) Status:Active Family history of hyperlipid emia: Grandparent(V18.19, Z83.438) Status:Active Family history of cerebrovas cular accident (CVA): Grandparent(V17.1, Z82.3) Status:Active Unknown Family Member Name Dates Details Family history of cardiac di sorder: Father(V17.49, Z82.49) Status:Active Family history of diabetes m ellitus: Grandparent(V18.0, Z83.3) Status:Active Family history of hyperlipid emia: Grandparent(V18.19, Z83.438) Status:Active Family history of cerebrovas cular accident (CVA): Grandparent(V17.1, Z82.3) Status:Active Unknown Family Member Name Dates Details Family history of cardiac di sorder: Father(V17.49, Z82.49) Status:Active Family history of diabetes m ellitus: Grandparent(V18.0, Z83.3) Status:Active Family history of hyperlipid emia: Grandparent(V18.19, Z83.438) Status:Active Family history of cerebrovas cular accident (CVA): Grandparent(V17.1, Z82.3) Status:Active Unknown Family Member Name Dates Details Family history of cardiac di sorder: Father(V17.49, Z82.49) Status:Active Family history of diabetes m ellitus: Grandparent(V18.0, Z83.3) Status:Active Family history of hyperlipid emia: Grandparent(V18.19, Z83.438) Status:Active Family history of cerebrovas cular accident (CVA): Grandparent(V17.1, Z82.3) Status:Active Relationship Condition Age at Onset Recorded Date/T gorge Not Specified Diabetes mellitus Unknown Cardiac disease Unknown Chronic obstructive pulmonary disease Unk nown Unknown Family Member Name Dates Details Family history of cardiac di sorder: Father(V17.49, Z82.49) Status:Active Family history of diabetes m ellitus: Grandparent(V18.0, Z83.3) Status:Active Family history of hyperlipid emia: Grandparent(V18.19, Z83.438) Status:Active Family history of cerebrovas cular accident (CVA): Grandparent(V17.1, Z82.3) Status:Active Advance Directives No Advanced Directives Records Found Advance Directive Response Recorded Date/ Time Living Will No July 27, 022 5:24pm Power of Dust Sampler No July 27, 2022 5:24pm Chief Complaint and Reason for Visit Chief Complaint SCREENING GENERAL ILLNESS Chief Complaint Admit Date LEFT KNEE October 29, 2024 2:5 8pm LEFT KNEE TEMPLATING December 08, 2024 9: 56am Reason for Visit Admit Date 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 October 29, 2024 2:58pm Osteoarthritis of left knee October 29, 2024 2:58pm Chief Complaint Admit Date LEFT KNEE October 29, 2024 2:5 8pm LEFT KNEE TEMPLATING December 08, 2024 9: 56am left knee December 26, 2024 2:34p m Reason for Referral Specialty Diagnoses / Procedures Referred By Leticia t Referred To Contact Radiology Diagnoses Screening for cardiovascular condition Procedures CT cardiac scoring wo IV contrast Osman Morin PA-C [address] [facility] [place], [address] [address] Referral ID Status Reason Start Date Expiration Date Visits Requested Visits Authorized [id number] Pending Review Perform Procedure 03/02/2024 03/02/2025 1 1 Additional Source Comments (unrecognized sect ion and content) No Status Records FoundNo Status Records FoundNo Status Records FoundNo Status Records FoundNo Status Records FoundNo Status Records FoundNo Status Records FoundNo Status Records FoundNo Status Records Found INFORMATION SOURCE (unrecogn ized section and content) DATE CREATED AUTHOR 08/11/2018 [facility] DATE CREATED AUTHOR AUTHOR'S ORGANIZ ATION 08/05/2022 [facility] DATE CREATED AUTHOR AUTHOR'S ORGANIZ ATION 09/01/2022 [facility] DATE CREATED AUTHOR AUTHOR'S ORGANIZ ATION 11/20/2022 [facility] DATE CREATED AUTHOR AUTHOR'S ORGANIZ ATION 05/02/2024 [facility] DATE CREATED AUTHOR AUTHOR'S ORGANIZ ATION 10/12/2024 [facility] DATE CREATED AUTHOR AUTHOR'S ORGANIZ ATION 12/20/2024 [facility] DATE CREATED AUTHOR AUTHOR'S ORGANIZ ATION 12/28/2024 [facility] DATE CREATED AUTHOR AUTHOR'S ORGANIZ ATION 01/15/2025 [facility] Goals (unrecognized section and content) Goals may be documented in a n alternate sectionGoals may be documented in an alternate sectionGoals may be documented in an alternate section Reason for Visit (unrecogniz ed section and content) Reason Comments pt here for surgical clearance Pt c/o fe eling tired Specialty Diagnoses / Procedures Referred By Leticia t Referred To Contact Primary Care Procedures Follow Up In Primary Care - Established Osman Morin PA-C [address] [facility], [facility] [address] [place] [address] Phone: tel: fax: Referral ID Status Reason Start Date Expiration Date V isits Requested Visits Authorized [id number] Authorized 10/08/2024 10/08/2025 1 1 Reason Comments 3 month med check, discuss weight loss m edication Specialty Diagnoses / Procedures [facility] Referred To Contact Primary Care Diagnoses Hypertension, unspecified type Procedures Follow Up In Primary Care Osman Morin PA-C [address] [facility], [facility] [address] [place] [id number] Referral ID Status Reason Start Date Expiration Date V isits Requested Visits Authorized [id number] Authorized 10/29/2022 04/27/2023 1 1 Reason Comments 3 month med check Pt would like to dis cuss having and inhaler prescribed Reason Comments Sore Throat Cough Sinus drainage, prod uctive cough, x6 days, vomiting on Tuesday Reason Comments med check PT is here today for a med check. reports when he gets up in the morning his pulse is 40's, reports this is not all the time. Denies sx with his pulse this low. Reports he is fatigued and not a lot of energy. Specialty Diagnoses / Procedures [facility] Referred To Contact Radiology Diagnoses Screening for cardiovascular condition Procedures CT cardiac scoring wo IV contrast Osman Morin PA-C [address] [facility] [place], [place] [address] Referral ID Status Reason Start Date Expiration Date Visits Requested Visits Authorized [id number] Pending Review Perform Procedure 03/02/2024 03/02/2025 1 1 Reason Comments Elevated Calcium Score Specialty Diagnoses / Procedures [facility] Referred To Contact Cardiology Diagnoses Elevated coronary artery calcium score Osman Morin PA-C [address] [facility], [facility] [address] [place] [id number] Phone: tel: fax: Olu Claire MD [address] [place] [address], [facility] [address] [place] [address] Phone: tel: fax: Referral ID Status Reason Start Date Expiration Date Visits Requested Visits Authorized [id number] Authorized Specialty Services Required 08/24/2024 08/24/2025 1 1 Reason Comments Results Stress test, echo, m onitor f/u Reason Comments pt here for med check Pt is coughing up blood , fever and chills Referral ID Status Reason Start Date Expiration Date V isits Requested Visits Authorized [id number] Authorized 04/06/2024 04/06/2025 1 1 Care Teams (unrecognized sec tion and content) Home Energy Consultant Supervisor Relationship Specialty Start Date End Date Osman Morin PA-C [address] [facility] [place], [address] [place] [address] PCP - General 07/30/22 Home Energy Consultant Supervisor Relationship Specialty Start Date End Date Osman Morin PA-C [address] [place] [address] PCP - General Family Medicine 05/04/24 Home Energy Consultant Supervisor Relationship Specialty Start Date End Date Osman Morin PA-C [address] [facility], [address] [place] [address] PCP - General 07/30/22 Home Energy Consultant Supervisor Relationship Specialty Start Date End Date Osman Morin PA-C [address] [facility], [address] [place] [address] PCP - General 07/30/22 Home Energy Consultant Supervisor Relationship Specialty Start Date End Date Osman Morin PA-C [address] [facility], [address] [place] [address] PCP - General 07/30/22 Home Energy Consultant Supervisor Relationship Specialty Start Date End Date Osman Morin PA-C [address] [facility], [address] [place] [address] PCP - General 07/30/22 Home Energy Consultant Supervisor Relationship Specialty Start Date End Date Osman Morin PA-C [address] [facility], [address] [place] [address] PCP - General 07/30/22 Home Energy Consultant Supervisor Relationship Specialty Start Date End Date Osman Morin PA-C [address] [facility], [address] [place] [address] PCP - General 07/30/22 Home Energy Consultant Supervisor Relationship Specialty Start Date End Date Osman Morin PA-C [address] [facility], [address] [place] [address] PCP - General 07/30/22 Home Energy Consultant Supervisor Relationship Specialty Start Date End Date Osman Morin PA-C [address] [facility], [address] [place] [address] PCP - General 07/30/22 Home Energy Consultant Supervisor Relationship Specialty Start Date End Date Osman Morin PA-C [address] [facility], [address] [place] [address] PCP - General 07/30/22 Home Energy Consultant Supervisor Relationship Specialty Start Date End Date Osman Morin PA-C [address] [facility], [address] [place] [address] PCP - General 07/30/22 Home Energy Consultant Supervisor Relationship Specialty Start Date End Date Osman Morin PA-C [address] [facility], [address] [place] [address] PCP - General 07/30/22 Home Energy Consultant Supervisor Relationship Specialty Start Date End Date Osman Morin PA-C [address] [facility] [place], [address] [address] PCP - General 07/30/22 Team Status: Active Member Role Status Dates Dr. Carlos Bazzi MD Primary Care Provider Active Team Status: Inactive Member Role Status Dates Dr. Carlos Bazzi MD Primary Care Provider Active Start: October 29, 2024 End: October 29, 2024 Dr. Carlos Bazzi MD Referring Provider Active Start: October 29, 2024 End: October 29, 2024 Dr. Shan Jaeger DO Attending Provider Active Start: October 29, 2024 End: October 29, 2024 Team Status: Inactive Member Role Status Dates Dr. Carlos Bazzi MD Primary Care Provider Active Start: December 08, 2024 End: December 08, 2024 Dr. Shan Jaeger DO Attending Provider Active Start: December 08, 2024 End: December 08, 2024 Dr. Shan Jaeger DO Referring Provider Active Start: December 08, 2024 End: December 08, 2024 Home Energy Consultant Supervisor Relationship Specialty Start Date End Date Osman Morin PA-C [address] [facility] [place], [address] [address] PCP - General 07/30/22 Team Status: Active Member Role Status Dates ESTEBAN Izquierdo Primary Care Provider Active Team Status: Inactive Member Role Status Dates Dr. Carlos Bazzi MD Referring Provider Active Start: December 26, 2024 End: December 26, 2024 HARLAN Basilio Attending Provider Active Start: December 26, 2024 End: December 26, 2024 ESTEBAN Izquierdo Primary Care Provider Active Start: December 26, 2024 End: December 26, 2024 Source Comments (unrecognize d section and content) In the event this informatio n is protected by the Federal Confidentiality of Alcohol and Drug Abuse Patient Records regulations: The Federal rules restrict any use of the information to criminally investigate or prosecute any alcohol or drug abuse patient.[facility] FOR RECORDS PERTAINING TO PATIENTS WHO ARE OR HAVE BEEN ENROLLED IN A CHEMICAL DEPENDENCY/SUBSTANCEABUSE PROGRAM, SOME INFORMATION MAY BE OMITTED. This clinical summary was aggregated from multiple sources. Caution should be exercised in using it in the provision of clinical care. This summary normalizes information from multiple sources, and as a consequence, information in this document may materially change the coding, format and clinical context of patient data. In addition, data may be omitted in some cases. CLINICAL DECISIONS SHOULD BE BASED ON THE PRIMARY CLINICAL RECORDS. [facility] [facility]. provides no warranty or guarantee of the accuracy or completeness of information in this document.
[2025-01-15] MEDS: Lactated Ringers 1,000 ML 15 ML IV (06:06)
[2025-01-15] MEDS: Magnesium 2 GM for ERAS IV (06:06)
[2025-01-15] MEDS: Acetaminophen 500 MG Tablet 1000 MG PO ×2 (06:23→13:47)
[2025-01-15] MEDS: Celecoxib 200 MG Capsule 400 MG PO (06:23)
[2025-01-15] MEDS: Scopolamine 1mg/72hr Patch 1 PATCH TD (06:23)
[2025-01-15] MEDS: Gabapentin 600 MG Tablet PO (06:23)
--- NOTE | 2025-01-15 06:32 | PRE.ANES_ITS ---
ASA Classification* ASA Classification ASA Classification: 3 Assessment & Plan Anesthesia* Anesthesia Assessment Anesthesia Assessment: Discussed sedation and/or anesthesia options, risks, benefits, and alternatives with patient/parents/legal guardian/POA. Questions invited. The patient/parents/legal guardian/POA seems to understand and agrees to proceed with anesthesia plan. Reviewed the physical assessment, medical history, allergy history and patient home medications list prior to surgery/procedure/anesthetic and documented any changes. Performed airway and anesthesia risk assessments. Anesthesia Type Anesthesia Type: Spinal and Block (Patient is consented for adductor block.) History Source History Obtained from:: Patient and Chart Anesthesia Focused Assessment* Temperature: 97.4 F Pulse Rate: 58 Blood Pressure: 129/81 Respiratory Rate: 18 Pulse Ox: 96 Oxygen Delivery Method: Room Air Airway Assessment Mouth opens: >3 cm Mallampati Score: III Teeth Condition: Missing (Patient has couple missing teeth. Rest are tight.) Neck Range of motion (ROM): Full ROM Focused Labs Anesthesia Preop lab: CBC WBC 5.7 K/mm3 (4.4-11.0) 01/08/25 13:23 01/08/25 RBC 5.02 M/mm3 (4.6-6.2) 01/08/25 13:23 01/08/25 Hgb 14.6 g/dL (13.0-16.5) 01/08/25 13:23 01/08/25 Hct 44.8 % (40-54) 01/08/25 13:23 01/08/25 Plt Count 194 K/mm3 (150-450) 01/08/25 13:23 01/08/25 CHEMISTRY Potassium 4.3 mmol/L (3.3-5.1) 01/08/25 13:23 01/08/25 Sodium 138 mmol/L (133-145) 01/08/25 13:23 01/08/25 Magnesium 1.9 mg/dL (1.5-2.2) 01/08/25 13:22 01/08/25 BUN 13 mg/dL (4-19) 01/08/25 13:23 01/08/25 Creatinine 0.86 mg/dL (0.70-1.20) 01/08/25 13:23 01/08/25 Glucose 118 mg/dL (70-99) H 01/08/25 13:23 01/08/25 COAG PT 13.2 SECONDS (11.7-14.9) 01/08/25 13:23 Pre-Assessment Diagnosis/Proposed Procedure Planned Operative Procedure(s): (L) Left Total Knee Replacement Robotic Arm Assisted with hardware removal Anesthesia History 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 When Was Last Pacemaker Check QUESTION #4 FULL TEXT: You/Your Family Experience fever (hyperthermia) with Anesthesia Last Oral Intake Last Oral intake: Last Oral Intake NPO since 23:00 01/15/25 06:14 Meds taken in AM with sips of No 01/15/25 06:14 water? 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 operator Female No 12/24/24 09:05 HX of Motion Sickness No 12/24/24 09:05 HX of N/V After Surgery No 12/24/24 09:05 Non-Smoker Yes 12/24/24 09:05 Duration of Surgery greater Yes 12/24/24 09:05 than 60 minutes Number of Risk Factors 2 12/24/24 09:05 PONV Score Moderate Risk 12/24/24 09:05 Height & Weight Height & Weight: Anesthesia: Height & Weight Height 5 ft 8 in 01/15/25 06:14 Weight: 118 kg 01/15/25 06:14 Body Mass Index (BMI) 39.5 01/15/25 06:14 Respiratory Assessment Respiratory Assessment - 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 Has anyone observed you stop breathing during sleep? STOP Results Positive 12/24/24 09:05 QUESTION #5 FULL TEXT : Do you snore loudly (louder than talking or can be heard through closed doors)? 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 Specify any problems Hx of Preganancy in last 3 N/A 12/24/24 09:05 Months Nurse Filling Out Transfusion JZOLLDESIREE 12/24/24 09:05 & Questions: Date: 12/24/24 12/24/24 09:05 Time: 09:13 12/24/24 09:05 Patient unable to answer at this time (ie. 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 cleaner and transfer operator: /Reproductive Hx- grain cleaner and transfer operator Hx Now No 12/24/24 09:05 Gestational Age (in weeks): EDC: Hx Hx Para Hx Section SAB No 12/24/24 09:05 Active Medications Active Medications: Current Medications Generic Name Dose Route Start Last Admin Trade Name Freq PRN Reason Stop Dose Admin Acetaminophen 1,000 mg 01/15/25 07:30 01/15/25 06:23 Acetaminophen 500 Mg Tablet PO 01/15/25 07:31 1,000 mg PREOP ONE Administration Celecoxib 400 mg 01/15/25 07:30 01/15/25 06:23 Celecoxib 200 Mg Capsule PO 01/15/25 07:31 400 mg PREOP ONE Administration Dexamethasone Sodium Phosphate 10 mg 01/15/25 07:30 Dexamethasone 10 Mg/Ml Vial IV 01/15/25 07:31 INTRAOP ONE Gabapentin 600 mg 01/15/25 07:30 01/15/25 06:23 Gabapentin 600 Mg Tablet PO 01/15/25 07:31 600 mg PREOP ONE Administration Cefazolin Sodium 3 gm/ Sodium 115 mls @ 150 mls/hr 01/15/25 07:30 Chloride IV 01/15/25 08:15 INTRAOP ONE Tranexamic Acid 1,000 mg/ 110 mls @ 660 mls/hr 01/15/25 07:30 Sodium Chloride IV 01/15/25 07:39 INTRAOP ONE Tranexamic Acid 1,000 mg/ 110 mls @ 660 mls/hr 01/15/25 07:30 Sodium Chloride IV 01/15/25 07:39 INTRAOP ONE Lactated Ringer's 1,000 mls @ 125 mls/hr 01/15/25 07:30 IV 01/15/25 15:29 .Q8H ELIZABETH Magnesium Sulfate 2 gm/ 104 mls @ 208 mls/hr 01/15/25 07:30 01/15/25 06:06 Dextrose IV 01/15/25 07:59 208 mls/hr INTRAOP ONE Administration Lactated Ringer's 1,000 mls @ 15 mls/hr 01/15/25 05:45 01/15/25 06:06 IV 15 mls/hr .Q48H ELIZABETH Administration Insulin Human Lispro 1 - 6 unit 01/15/25 07:30 Insulin Lispro 100 Unit/Ml Insuln.Pen SC Q4H PRN PRN BG>/= 180, SEE PROTOCOL Protocol Scopolamine HBr 1 patch 01/15/25 07:30 01/15/25 06:23 Scopolamine 1mg/72hr Patch TD 01/15/25 07:31 1 patch PREOP ONE Administration PFSH Medical History Hx of electrocardiogram Hx of cardiovascular stress test Hx of echocardiogram History of Holter monitoring Wears glasses Hx of psoriasis High cholesterol Former smoker Sleep apnea Shortness of breath on exertion HTN (hypertension) Home Medications ?Medication ?Instructions ?Recorded ?Last Taken ?Type metoprolol succinate 100 mg 50 mg PO .hs 11/18/2111/06 History tablet,extended release 24 hr ezetimibe 10 mg tablet 10 mg PO QDAY 10/29/2401/14 History hydroxyzine HCl 10 mg tablet 10 mg PO QHS PRN insomnia 10/29/24 Unknown History cholecalciferol (vitamin D3) 50 2,000 unit PO DAILY 01/14/25 History mcg (2,000 unit) tablet (D3 DOTS) cyanocobalamin (vitamin B-12) 500 500 mcg PO DAILY 08/0801/14/25 History mcg tablet (B-12 DOTS) testosterone 100 mg implant pellet 100 mg subcut ONCE 12/26/24 01/07/25 History Allergy/AdvReac Type Severity Reaction Status Date / Time No Known Allergies Allergy Verified 01/15/25 06:03 Family History Other COPD (chronic obstructive pulmonary disease) Diabetes Heart disease Surgical History Hx of colonoscopy Hx of arthroscopy of left knee Social History Smoking Status: Never smoker alcohol intake: never substance use type: does not use Review of Systems (Anesthesia) ROS Narrative System reviewed and no additional complaints, except as documented.
[2025-01-15 07:01] LABS: Bedside Glucose 148 mg/dL (74-106)
--- NOTE | 2025-01-15 07:30 | KNEE_PTH ---
PATIENT: ISMAEL LARSON LOC: [facility] – [place] U#:[id number] AGE/SX: 64/M ROOM: RE01/15/[address]: Dr. Shan Jaeger DO : 1960 BED: DIS: 01/15/2025 SPEC #: [id number] RECD: 01/15/25 13:17 STATUS: SHAE GUILHERME #: [id number] IGNACIO: 01/15/25 07:[address]: Shan Jaeger DEPT: SURGICAL PATHOLOGY RECD BY: aTvares Foley ENTERED: 01/15/25 13:43 SP TYPE: TOTAL KNEE OTHR DR: ESTEBAN Izquierdo Tissues: A - Knee, NOS Procedures: Decalcification bone/plaque Surgery Specimen Level III HEADER OPERATION: ERAS, left total knee replacement robotic arm assist PRE-OP DIAGNOSIS: History of reconstruction of anterior cruciate ligament tear, primary osteoarthritis left knee TISSUE SUBMITTED: A- Debrided bone and tissue - left knee MICROSCOPIC DIAGNOSIS A. bone and soft tissue, left knee, arthroplasty: * Severe degenerative osteoarthritis MICROSCOPIC DESCRIPTION Slides are reviewed. GROSS DESCRIPTION A. Received in formalin in a container labeled with the patient's name, date of , and debrided bone and tissue L knee are multiple tapia-pink, firm, and irregular fragments of bone with soft tissue measuring 14.0 x 9.5 x 4.0 cm in aggregate. The specimen consists of, but is not limited to, medial/lateral condyle and tibial plateau. The resection margins are smooth, and firm and the cortical surfaces are pitted and granular with areas of smooth eburnation. The soft tissue and bone are sectioned to reveal unremarkable surfaces. Motor Bike Mechanic sections are submitted in A1 following decalcification. [facility] 01-15-2025 CPT:47970,69718
--- NOTE | 2025-01-15 07:30 | PCM.HP.BLA ---
History and Physical Date of Admission: 01/15/25 [facility] [address] [place] [address] OFFICE VISIT Date of Service: 10/29/24 MR#: [id number] Acct: [id number] Name: ISMAEL LARSON Rep #: [id number] : 1960 Provider: Dr. Shan Jaeger DO Age/Sex: 63/M Location: [facility] [place] Status: Signed Intake Vital Signs 07/27/2216:57 10/29/2514:05 Height 5 ft 8 in 5 ft 8 in Weight: 254 lb 2 oz BMI 38.6 Intake Visit Reasons: LEFT KNEE Chief Complaint: left knee pain Accompanied by: Is patient in pain?: No Allergies No Known Allergies Allergy (Verified 10/29/24 15:05) Medications ?Medication ?Instructions ?Recorded ?Confirmed ?Type metoprolol succinate 100 mg tablet PO 11/18/21 10/29/24 History tablet,extended release 24 hr ezetimibe 10 mg tablet 10 mg PO QDAY 10/29/24 10/29/24 History hydroxyzine HCl 10 mg tablet 10 mg PO QHS PRN insomnia 10/29/24 10/29/24 History PFSH Medical History HTN (hypertension) Surgical History Hx of arthroscopy of left knee Family History Other COPD (chronic obstructive pulmonary disease) Diabetes Heart disease Social History Smoking Status: Never smoker alcohol intake: never substance use type: does not use HPI LEFT KNEE Details: This documentation accurately reflects the service provided and the decisions made by me, Dr. Shan Jaeger DO 10/29/24 0924. Part of today?s visit was documented by Jessy Burks ATC, acting as scribe. ISMAEL LARSON is a 63 year old M here today for left knee pain. Patient states he wears a compression brace most of the time because he climbs stairs. He states this does give him relief and a little extra support. He has stopped hiking and walking due to the knee pain. He states the steroid injections that he has gotten in the past has helped him with the pain. He states he did not see a big difference with the visco injections that he had. He denies any recent falls/injury to the knee that would have caused the pain to get worse. He wants to talk about next steps. He complains of pain more over the medial aspect of the knee. 02/10/2022:3rd euflexxa injection left knee 11/18/2021:61 year old M NEW patient here today for left knee pain that he has been having for about 1 month. Denies any new injury. He has mostly a deep medial sided knee pain. He has increased pain with extension and when the knee becomes stiff. He has increased pain with prolonged ambulation. Denies numbness, tingling or other associated symptoms. Denies any radiating leg pain. He has had a left knee scope in [address] Bandar Crowe in [place]. This was the only surgery he had on the knee. He had a meniscus tear at the time as well as a MCL and ACL repair. Unsure if he had hamstring or bone tendon bone graft. Scar looks like hamstring graft but xrays look like bone tendon bone graft. He has had injection on the knee about 5-6 years ago. Denies any recent knee bracing. He is taking Tylenol for the pain. He has also been using heat. Denies any topical pain creams. He does have occasional painful popping in the knee. He does have occasional feelings of giving out. Plan:obtained X-rays of patient's left knee. Personally reviewed x-rays. There is no obvious fracture, dislocation, or lucency noted. Patient educated that because of his hx of ACL repair he was at an increased risk of developing arthritis. 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 He also has some patellofemoral arthritis of the knee. Educated that his knee just may be inflamed at this time. Treatment options are do nothing or bracing or PT for strengthening or steroid injection or NSAIDs or viscosupplementation or if conservative care fails then surgical option would be TKA. He wishes to proceed with a left steroid injection at this time. He can also take OTC Ibuprofen OR Aleve for the next few days for inflammation. Ortho Exam General General: Yes no acute distress and Yes well groomed Neurologic: Yes alert and Yes oriented x3 Psychologic: Yes reasonable and appropriate Right Knee Patella Translation: 1 Left Knee Skin/Wound: No ecchymosis, No erythema and No swelling Homans Sign: No Knee ROM: Yes ROM-Extension -20 to 0 and No ROM-Flexion 0-140 (115) Examination: Yes med jt line tenderness, No Lat jt line tenderness, No TTP Patellar tendon and No TTP Pes Anserine Stability: NML: Anterior Drawer, NML: Posterior Drawer, NML: Valgus 30, NML: Varus 0 and NML: Varus 30 Patella Translation: 1 Patella Grind: No KNEE: no joint effusion Constitutional: Well-developed; well-nourished; in no acute distress Eyes: No jaundice ENT: Nares patent; no obvious deformity Cardiovascular: No cyanosis; clubbing; or edema Lymphatic: No adenopathy in area of examination Skin: No rashes or lesions in the area of examination and intact Neurologic: Alert and oriented x 3 Psychiatric: Mood and affect appropriate Supplemental Info 11/18/2021 x-ray left knee x-ray: evidence of prior ACL reconstruction with hardware moderate to severe medial joint space narrowing spurring noted throughout the knee Coding Level of Care Code Off vis,est,level 4 Diagnoses History of reconstruction of anterior cruciate ligament tear Z98.890 Primary osteoarthritis of left knee M17.12 Osteoarthritis type: primary Assessment and Plan Assessment and Plan (1) History of reconstruction of anterior cruciate ligament tear: Status: Acute (2) Osteoarthritis of left knee: Status: Acute Qualifiers: Osteoarthritis type: primary Qualified Code(s): M17.12 - Unilateral primary osteoarthritis, left knee Plan Explained to patient if he would want to proceed with a TKA we would need updated radiographs today. Spoke to patient that he would be a candidate for TKA and we could proceed with that if that is what the patient wishes. If he would like to hold off he could continue with steroid injections until he is ready. His other options besides TKA would be: do nothing, steroid injections, visco injections, physical therapy, bracing and anti-inflammatories. Explained to patient that due to his prior knee surgery and the screws he does have in place they will likely need to remove one or both during surgery. We will request the operative report. Explained the Iovera treatment to the patient and recommend the procedure if insurance does cover that. Recommend patient see physical therapy prior to proceeding with a TKA and that would benefit him in the long run following surgery. Would like to get operative report from Dr. Bandar Crowe in [place] prior to proceeding with the surgery to know exactly what was done in his prior surgery and what hardware was used. . Patient would like to proceed with surgery in January. Patient will call into the office once he is ready to schedule and proceed with surgery. He will tentatively be scheduled the same day procedure with hardware removal and total knee arthroplasty. He would need to stop all NSAIDs 1 week prior and 2 weeks postoperatively. I did recommend preoperative physical therapy He will need to have CT scheduled for MAKOplasty. Risks, benefits and alternatives of surgery reviewed including but not limited to bleeding, infection, nerve, artery and/or tissue damage, fracture, VTE, mechanical feel of the knee, continued pain, stiffness and expected post-operative course. Follow up in an as needed basis or sooner if pain, swelling, numbness or associated symptoms, or concerns develop. All questions answered. Patient in agreement of plan. 10/29/24 1626 <Electronically signed by Shan Jaeger DO> Date Shan Jaeger DO I have examined the patient and the H&P has been reviewed. There are no clinical changes since date of exam.
[2025-01-15] MEDS: Cefazolin 3 GM in 0.9% Normal Saline (100mL Bag) 100 ML IV (07:39)
[2025-01-15] MEDS: TXA 1000mg in NS100 100ml (IVPB at Incision) 660 MG IV (07:50)
[2025-01-15] MEDS: dexAMETHasone 10 MG/ML Vial IV (07:55)
[2025-01-15] MEDS: TXA 1000mg in NS100 100ml (IVPB at Closure) 660 MG IV (08:38)
[2025-01-15] MEDS: Bupivacaine 0.5% PF 10 ML VIAL (09:41)
[2025-01-15] MEDS: dexAMETHasone 4 MG/ML Vial (09:41)
[2025-01-15] MEDS: 0.9% Normal Saline (Pres. free 10 ML Vial (09:41)
[2025-01-15] MEDS: Epinephrine (1 mg/ml) 1 MG/ML VIAL (09:41)
--- NOTE | 2025-01-15 10:54 | OP.PCM_ITS ---
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 hardware Post-Operative Diagnosis: Same Surgery/Procedure Performed: Removal of hardware and placement of left total knee arthroplasty commissioning manager: Yes Painting Trades Worker: Kevin Gonzalez Tasks completed by metal moulder's assistant: Opening & closing Type of Anesthesia: Spinal RN Documented Start/Stop Times: Operation Date: 01/15/25 07:30 Case Time Into Pre-Op 01/15/25 05:40 Anesthesia Start 01/15/25 07:39 Into Room 01/15/25 07:39 Procedure Start 01/15/25 08:06 Procedure End 01/15/25 10:47 Anesthesia End 01/15/25 10:51 Out of Room 01/15/25 10:51 Procedure Start Time: 08:06 Procedure Stop Time: 10:47 Select all DRAINS/GRAFTS/IMPLANTS that apply: Implanted device Implanted device details: Chelsy triathlon total knee with universal baseplate Estimated Blood Loss: 125 Specimen collected: Yes Description of specimen(s) removed: Bone and soft tissue Description of surgery: Preoperative diagnosis: Left knee DJD history of ACL reconstruction with retained hardware Postoperative diagnosis: Same Procedure: Left total knee arthroplasty CT guided Robotic Assisted with removal of ACL interference screw in the tibia Implant: Chelsy triathlon press fit, femoral component size5, cemented universal tibial baseplate with knob size 5, press-fit asymmetric patella size 35, polyethylene X3 size 10 CS Anesthesia: Spinal with adductor canal block Tourniquet time: 48 minutes at 300 mmHg total time but divided between 2 sessions at the beginning of the case down and then up again for cementing Complications: None Condition: Stable to PACU Estimated blood loss: 125 cc Smoking Pipe Coater Kevin Gonzalez. My physician sales assistant entertainment and media was a vital part of this case. He was important in appropriate retraction during the case, and protection of soft tissues during procedure. His intimate knowledge of the case and my steps aided in safe and expedient completion of the procedure as well as appropriate position of the extremity during the case. He was also vital in assisting with closure under my direct supervision. 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 Risk benefits and alternatives were reviewed including; risk of bleeding, infection, nerve artery and tissue damage, continued pain, postoperative stiffness, venous thromboembolism, need for postoperative rehabilitation, mechanical feel to the knee, and expected postoperative course. The pre- operative CT and templating was performed with component sizing. Procedure: The patient was met in the preoperative holding area. The operative extremity was identified by both patient and physician and was marked. Patient was met by anesthesia. An adductor canal block was placed by anesthesia postope ratively the patient was brought back to the operating room on a wheeled cart and transferred to the operating table in the supine position. Anesthesia was started. A well-padded tourniquet was placed on the operative extremity. The patient was prepped and draped in the usual sterile fashion. A timeout was called to ensure the proper patient procedure and extremity were being contemplated. An esmarch was used to exsanguinate the extremity. The tourniquet was inflated. A 10 blade scalpel was used to make a midline incision down through the skin and subcutaneous tissue his previous incision over his patellar tendon was used in he did have a second incision over his screw we had to curb her incision to incorporate both of these to allow access to the tibial interference screw. Skin retractors placed. Bovie and Aquamantis were used to perform meticulous hemostasis. full-thickness flaps were elevated medial and lateral along the joint capsule. The tibial screw was slightly prominent and was easily visualized after trialing various screwdrivers and finding the appropriate fit it was backed out with ease it was not loose however it was very well seated. A deep blade scalpel was used to perform a medial parapatellar arthrotomy. The knee was brought to full extension. A bovie was used to release the soft tissues off the most proximal aspect of the medial tibial plateau, a three-quarter inch curved osteotome was also used in this process. The infrapatellar fat pad was excised. The suprapatellar fat pad was excised partially anteriorolateraly and portion the anterioromedial pad was elevated from the femur. At this point our intra-articular femoral array was placed at a 45 degree angle proximal and posterior to the medial epicondyle. femoral checkpoint was placed at this time. Our tibial array was placed partially extra incision only to avoid any further bony penetrations around his ACL screw, and pins were placed and attached to the tibial array , tibial checkpoint was placed in the proximal tibial metaphysis. Tourniquet was let down. At this point registration fleming were taken throughout the knee . Once the knee was registered we then tensioned the medial and lateral ligaments in extension and 90 degrees of flexion. We then used these numbers to adjust our components within parameters to balance the knee in both flexion and extension. He did have a significant varus deformity and 5 degrees of total varus combined Lissette femur and tibia were maximized he did require additional medial soft tissue release to balance the knee . once this was done on our monitor we then proceeded with using the robotic arm to make our tibial plateau cut, anterior and posterior chamfer and distal femur cuts. we removed the cut fragments with the use of a bovie and Tristan, we did use a lamina carburetor specialist to insure we visualized and removed all posterior osteophytes and at this time also used the Aquamantis on the posterior joint capsule. we then trialed and achieved the desired plan with a well-balanced knee. we used the green probe to portia the corresponding tibial rotation based on our CT template. Lug holes were drilled in the femur the tibia preparation was completed with the appropriate sized base plate pinned based on previous rotation portia. Tibial reamer was used an appropriate sized fin punch was used on the tibia and the patella was prepared by first using a caliper to ensure sufficient bone stock and a patellar reamer to remove the desired amount of bone. lug holes drilled for an asymmetric poly. We then brought the knee through range of motion with excellent patellar tracking. We thoroughly irrigated the knee. Trial components were removed a posterior capsular injection was preformed with our standard cocktail. In addition the aqua Mantis was also used to aid in hemostasis. Betadine rinse was allowed to sit and washed out completely. Components were cemented on the tibial side around the baseplate, keel and entirety universal baseplate cement was finger packed into the tibial canal excess cement was removed with a [place] elevator impactor tools were used. The polyethylene was inserted. The femoral and patellar components were press-fit Betadine rinse was allowed to sit for 5 minutes while the cement hardened thorough irrigation was performed followed by. Aricept rinse was then used followed by several more liters of irrigation after it was allowed to sit. The joint capsule was closed with #1 Ethibond [id number] in the upper part of the arthrotomy and #1 Vicryl in the lower part of the arthrotomy. , Followed by 2-0 Vicryl in the subcutaneous tissues with jo-ann in the skin. Arrays and checkpoints were removed prior to closure all counts were correct stab incisions were closed with a staple standard dressing in the form of Mepilex AG for the main incision and a small Mepilex over the pin holes. Thigh-high KAYLEIGH hose applied over top of dressing. Patient tolerated the procedure well and was directed to PACU in stable condition . There were no intraoperative complications. Surgical Findings: DJD knee Complications Complications: No
--- NOTE | 2025-01-15 11:04 | DCINST_ITS ---
Discharge Instructions Diet Discharge Diet: No restrictions Activity Weight Bearing Status: Full weight bearing Dressing / Incision Call your doctor if you observe: Shortness of breath and Chest pain Additional Dressing/Incision Instructions:: Ice and elevate lower extremities 2 weeks while not ambulating. Ambulation is encouraged. Weight bearing as tolerated. Use assistive devise for stability. Encourage FULL knee extension and flexion 1 time EVERY time you get up and down and MULTIPLE times per day. No showering until 72 hours after surgery. May begin showering postop day #3. Remove the dressing prior to shower and gently wash with warm water and antibacterial soap then pat dry and place abdominal pad (or plain gauze) and KAYLEIGH hose over top. If you decide not to begin showering 72 hrs post operatively and wish to sponge bath only, then you may leave dressing undisturbed for up to 1 week, but must remove prior to first shower. Do not submerge for 3 weeks. If not showering daily after the initial dressing is removed you must clean incision and change dressing daily after the dressing comes off, must come off by 7 days postop. Do not allow animals near the incision area. Keep clean. Follow anti-coagulation recommendations as prescribed. Do not take any NSAIDs while on blood thinner. Do not take any additional narcotic pain medication other than what was prescribed on your surgery day without discussing with physician. Narcotic medication can be addictive. Do not drink alcohol while taking narcotics. Supplement narcotic prescription with acetaminophen 1000 mg 4 times a day. Start physical therapy. If you are not currently scheduled for physical therapy or you are unsure of appointment time please call office [facility] to arrange. Call Dr. Jaeger's office ) with any concerns. Follow Up Care Please Follow Up With: Shan Jaeger DO When: 2 weeks Test Results: Test results from this visit will be discussed in further detail at your follow- up appointment, if applicable. Discharge Plan Admission Primary Reason for Your Visit: Left total knee arthroplasty Attending Provider: Shan Jaeger Primary Care Provider: Osman Billingsley Instructions Print Language: Belgian Discharge Orders/Prescriptions Prescriptions: New acetaminophen 500 mg tablet 1,000 mg PO Q6H Qty: 90 0RF cephalexin 500 mg capsule 1,000 mg PO Q8H Qty: 6 0RF Rx Instructions: Take 3 tabs before you go to bed and 3 tabs after 5 AM morning after surgery when you wake up Eliquis 2.5 mg tablet 2.5 mg PO BID Qty: 28 0RF Rx Instructions: Begin morning after surgery. oxycodone 5 mg tablet 5 - 10 mg PO Q4H PRN (Reason: pain) 7 Days Qty: 60 0RF docusate sodium [Colace] 100 mg capsule 100 mg PO BID Qty: 30 1RF Rx Instructions: Take while on narcotic medication to help avoid constipation. Also drink plenty of water. Continued metoprolol succinate 100 mg tablet extended release 24 hr 50 mg PO .hs ezetimibe 10 mg tablet 10 mg PO QDAY hydroxyzine HCl 10 mg tablet 10 mg PO QHS PRN (Reason: insomnia) testosterone 100 mg pellet 100 mg subcut ONCE Rx Instructions: as a single dose cyanocobalamin (vitamin B-12) [B-12 DOTS] 500 mcg tablet 500 mcg PO DAILY cholecalciferol (vitamin D3) [D3 DOTS] 50 mcg (2,000 unit) tablet 2,000 unit PO DAILY Referrals / Follow Up: Osman Billingsley PA [Primary Care Provider] - Disposition Disposition (needs filled in before D/C Order can be placed): Home, Self Care
--- NOTE | 2025-01-15 11:10 | RAD_ITS ---
PROCEDURE: KNEE 1 OR 2 VIEWS 01/15/2025 REASON FOR EXAM: POST OP PACU TECHNIQUE: 2 view(s) of the left knee COMPARISON: 12/08/2024. FINDINGS: Status post left knee arthroplasty. Adjacent soft tissue swelling and air which is expected postsurgically. Overlying skin jo-ann. RAD/Knee 1 or 2 Views IMPRESSION: Status post left knee arthroplasty. Reading Location: [id number]
[2025-01-15] MEDS: LR 1,000 ML - 125 ML/HR POSTOP (NO BOLUS) IV (11:14)
--- NOTE | 2025-01-15 11:55 | PCM.POST.ANE ---
Anesthesia: Postop Eval I Current Vital Signs Temperature: 97.6 F Pulse Rate: 82 Blood Pressure: 100/89 Respiratory Rate: 16 Pulse Ox: 92 Oxygen Delivery Method: Room Air (assessment at 1100) Assessment Airway patent: Yes Spontaneous unlabored respirations: Yes Mental status: Awake and Calm nausea: No Vomiting: No Anesthesia Complication: No Fluid Hydration Crystalloid volume administer (ml): 1,900 Total IV fluid infused: 1,900 Progress Note Anesthesia document: Postop Eval 1 completed: Yes
[2025-01-15] MEDS: oxyCODONE 5 MG Tablet PO ×3 (12:08→14:51)
--- NOTE | 2025-01-15 13:16 | POSTOPAN2_ITS ---
Anesthesia Postop Eval I Sum Postop Eval Completion status Anesthesia document: Postop Eval 1 completed: Yes Anesthesia Postop Eval I Summary Anesthesia Postop Eval I Summary: Anesthesia Postop Eval I: Assessment Summary Airway patent Yes 01/15/25 11:57 PSYCHIATRIC CLINICAL NURSE SPECIALIST.[email or web address] Spontaneous unlabored Yes 01/15/25 11:57 PSYCHIATRIC CLINICAL NURSE SPECIALIST.SHOF respirations Mental status Awake,Calm 01/15/25 11:57 PSYCHIATRIC CLINICAL NURSE SPECIALIST.SHOF nausea No 01/15/25 11:57 PSYCHIATRIC CLINICAL NURSE SPECIALIST.SHOF Vomiting No 01/15/25 11:57 PSYCHIATRIC CLINICAL NURSE SPECIALIST.SHOF Anesthesia Postop Eval I: Fluid Summary Crystalloid volume administer 1,900 01/15/25 11:57 PSYCHIATRIC CLINICAL NURSE SPECIALIST.SHOF (ml) Colloids volume administered ( ml) Blood Product volume administered (ml) Total IV fluid infused 1,900 01/15/25 11:57 PSYCHIATRIC CLINICAL NURSE SPECIALIST.SHOF Anesthesia Postop Eval I: Summary Notes Anesthesia Complication No 01/15/25 11:57 PSYCHIATRIC CLINICAL NURSE SPECIALIST.SHOF Anesthesia Complication Comment: Post-operative progress note Anesthesia: Postop Eval II Evaluation Mental status: Awake and Calm Pain Level: 0 nausea: No Vomiting: No Complications Anesthesia Complication: No
--- NOTE | 2025-01-15 13:16 | PCM.POSTANE2 ---
Anesthesia Postop Eval I Sum Postop Eval Completion status Anesthesia document: Postop Eval 1 completed: Yes Anesthesia Postop Eval I Summary Anesthesia Postop Eval I Summary: Anesthesia Postop Eval I: Assessment Summary Airway patent Yes 01/15/25 11:57 TOOL AND DIE SUPERVISOR.SHOF Spontaneous unlabored Yes 01/15/25 11:57 TOOL AND DIE SUPERVISOR.SHOF respirations Mental status Awake,Calm 01/15/25 11:57 TOOL AND DIE SUPERVISOR.SHOF nausea No 01/15/25 11:57 TOOL AND DIE SUPERVISOR.SHOF Vomiting No 01/15/25 11:57 TOOL AND DIE SUPERVISOR.SHOF Anesthesia Postop Eval I: Fluid Summary Crystalloid volume administer 1,900 01/15/25 11:57 TOOL AND DIE SUPERVISOR.SHOF (ml) Colloids volume administered ( ml) Blood Product volume administered (ml) Total IV fluid infused 1,900 01/15/25 11:57 TOOL AND DIE SUPERVISOR.SHOF Anesthesia Postop Eval I: Summary Notes Anesthesia Complication No 01/15/25 11:57 TOOL AND DIE SUPERVISOR.SHOF Anesthesia Complication Comment: Post-operative progress note Anesthesia: Postop Eval II Evaluation Mental status: Awake and Calm Pain Level: 0 nausea: No Vomiting: No Complications Anesthesia Complication: No
[2025-01-15] MEDS: Cefazolin 2 GM in 0.9% Normal Saline (100mL Bag) 100 ML IV (13:42)
[2025-01-15] MEDS: HYDROmorphone 1 MG/ML Syringe 0.5 MG IV (14:51)
== END 2025-01-15 16:30 | disposition home or self-care (01) ==
LOC: SDC 05:38 → AC 05:38
PROVIDERS: Anesthesiology; PCP Physician Assistant; Referring Provider Orthopaedic Surgery; Visit Provider Orthopaedic Surgery
PROC: 0SRD0JZ Replacement of Left Knee Joint with Synthetic Substitute, Open Approach (ICD-10-PCS; CPT 27447; principal; 2025-01-15 07:00)
DX: M17.12 Unilateral primary osteoarthritis, left knee (principal); I10 Essential (primary) hypertension
CPT/HCPCS: 20680; 27447; 01402; 73560; 80048; 82962; 82985; 83036; 83735; 85025; 85610; 85730; 86850; 86900; 86901; 87081; 88304; 88311; 97162; C1776

== ENCOUNTER 2025-03-14 09:00 | Outpatient (RCR) | payer OTHER, SELFPAY ==
--- NOTE | 2025-01-19 04:28 | HP.PTEVAL_ITS ---
Patient's Visit Information Visit Information Visit Information: ISMAEL LARSON is a 64 year old M referred to Physical Therapy by Dr. Shan Jaeger DO with a diagnosis of L TKA, DOS: 01/15/25. Date of Evaluation: 01/18/25 Physical Therapist: Anoop Soto DPT Visit Plan Frequency: 2-3x /Week Duration: 6 Weeks Plan: 1) L knee ROM, mobs into both flexion and extension 2) edema control 3) gait progressiong 4) strengthening into functional strengthening. Subjective Subjective: Pt. is here today for his initial evaluation with diagnosis of R TKA, DOS: 01/15/25. Pt. arrives with FWW with good tolerance with WBing. Pt. reports overall doing well. No calf pain, no N/T. No chest pain noted. Pt. reports no changes in vision. He is having some trouble sleeping, unable to get comfortable. 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 Pt. has been doing his exercises as prescribed at home. taking pain meds as prescribed. Icing throughout the day with frequent walking. Pt. is hopeful to reduce symptoms in order to get back to all work and recreational activities. Pain L knee: Pain Intensity (Out of 10): 6 Pain Intensity Range: 4 and 8 Objective Objective: POSTURE: Pt. has slight lack of TKE in stance. with increased wt. shift to R side. [place]: Bandage in place. No signs of infection noted. Negative homans sign NEURO: Normal throughout. ROM: 0-5-89deg. Pt. has pain at end ranges. MMT: Pt. has decent quad set. L knee: ext 3#, flexion 7#; hip: flexion 3#. GAIT: Pt. ambulates well with FWW. Pt. has decreased knee flexion during swing, lacks TKE during stance phase. STAIRS: step to pattern noted with 2 HR. TUsec with FWW 30 sec sit to stand: 7 with use of UEs. Balance/Special Test Scores Lower Extremity Functional Score: 20 Goals Goal 1:: LTG: Pt. to be I with HEP. Goal Time Frame: 4-6 Weeks Goal 2:: STG: pt. to have increased L knee ROM to 0-0-120deg. Goal Time Frame: 2-4 Weeks Goal 3:: LTG: Pt. to have increased L LE strength symmetrical to R side. Goal Time Frame: 6-8 Weeks Goal 4:: LTG: Pt. to ambulate with out AD with normal gait pattern. Goal Time Frame: 4-6 Weeks Goal 5:: LTG: Pt. to complete TUG with time less than 10seconds. Goal Time Frame: 4-6 Weeks Goal 6:: LTG: Pt. to complete 30sec sit to stand rep test with at least 15 reps. Goal Time Frame: 4-6 Weeks Rehabilitation Potential Physical Therapy Diagnosis: Pt. has signs and symptoms consistent with L TKA, DOS: 01/15/25. Pt. has marked hypomobility, weakness, difficulty walking. Pt. would benefit from PT to address the above limitations progressing back to all previous ADLs and work activities without limitations. Rehabilitation Potential: Excellent Anticipated Interventions Patient/Client Instruction: Educate patient on: Condition, Plan of Care, Risk Factors and Benefits of Fitness Program For the Purpose of:: To improve health and function, To foster healthy habits, To improve decision making, To facilitate caregiver knowledge, To improve self management, To prevent re-injury and To improve ability to perform tasks related to life management Therapeutic Exercise to Include: Strength training, Power training, Body mechanics, Postural training, Flexibilty training, Gait and locomotor training, Passive ROM and Active ROM For the Purpose of:: To decrease pain, To decrease swelling/inflammation, To increase ROM, To improve nutrient delivery to tissue, To increase oxygenation perfusion, To improve ability of physical actions for home/community/work/leisure, To improve gait and locomotor functions, To improve health of tissue and To decrease soft tissue restriction Manual Therapy Techniques to Include: Mobilization and Soft tissue mobilization For the Purpose of:: To decrease pain, To decrease swelling/inflammation, To increase ROM, To improve nutrient delivery to tissue and To increase oxygenation perfusion Cryotherapy (ice pack, ice massage): Yes Vasopneumatic device: Yes For the Purpose of:: To decrease pain, To decrease swelling/inflammation, To increase ROM, To improve nutrient delivery to tissue and To increase oxygenation perfusion Text: Thank you for the opportunity to evaluate your patient. For Medicare and Medicare HMO plans, please review the plan of care and approve it. It will need to be FAXED BACK to us at [phone] for Medicare purposes. For Medicare only, by signing this I certify the plan of care. Please let me know if there are questions or concerns regarding this plan of care. Physician Sig nature: Date:
--- NOTE | 2025-02-19 09:30 | HP.PTREVAL ---
Re-Evaluation Intro: Dr. Shan Jaeger, DO, It has been my pleasure to treat JACK LARSON over the last 12 visits for L TKA, DOS: 01/15/25. Please see the progress note below for an update on the physical therapy plan of care! Subjective Subjective: Pt. reports overall doing well, but still having increased pain. Pt. is doing a lot. I talked to him about not over doing it, but he continues to do a lot outside. Pt. denies any N/T. Objective Objective/Function: ROM: AROM 0-02-110deg. PROM 0-0-115deg. MMT: LLE: knee: ext 22.5#, flex 31.3# RLE: ext: 47.1#, flex 22.9# GAIT: Pt. ambulates without AD, slight antalgic pattern noted. STAIRS: Pt. is able to complete with reciprocal pattern 2 HR mild increase NW, worst with descending. TU.77 sec no AD Pt. is overall doing well, still missing some end ranges of motion, slightly stiffer today, but doing well. He is to see physician next week. Plan Plan Plan: I am extending Jack x2 per week for 4 weeks. Work on end range of motion, progressing some functional strengthening. Ice to calm pain. Balance/Gait/Functional tests Balance/Special Test Scores Lower Extremity Functional Score: 44 TUG Test Time Seconds: 7.77 Tug Test: <10 sec.=free mobile 30 Second Chair Rise Test Seconds: 16 Goals Goals Goal 1:: LTG: Pt. to be I with HEP. Goal Time Frame: 4-6 Weeks Goal 2:: STG: pt. to have increased L knee ROM to 0-0-120deg. Goal Time Frame: 2-4 Weeks Goal Progress: Progressing Goal 3:: LTG: Pt. to have increased L LE strength symmetrical to R side. Goal Time Frame: 6-8 Weeks Goal Progress: Progressing Goal 4:: LTG: Pt. to ambulate with out AD with normal gait pattern. Goal Time Frame: 4-6 Weeks Goal Progress: Progressing Goal 5:: LTG: Pt. to complete TUG with time less than 10seconds. Goal Time Frame: 4-6 Weeks Goal Progress: Goal Met Goal 6:: LTG: Pt. to complete 30sec sit to stand rep test with at least 15 reps. Goal Time Frame: 4-6 Weeks Goal Progress: Goal Met Anticipated Interventions Anticipated Interventions Patient/Client Instruction: Educate patient on: Condition, Plan of Care, Risk Factors and Benefits of Fitness Program For the Purpose of:: To improve health and function, To foster healthy habits, To improve decision making, To facilitate caregiver knowledge, To improve self management, To prevent re-injury and To improve ability to perform tasks related to life management Therapeutic Exercise to Include: Strength training, Power training, Body mechanics, Postural training, Flexibilty training, Gait and locomotor training, Passive ROM and Active ROM For the Purpose of:: To decrease pain, To decrease swelling/inflammation, To increase ROM, To improve nutrient delivery to tissue, To increase oxygenation perfusion, To improve ability of physical actions for home/community/work/leisure, To improve gait and locomotor functions, To improve health of tissue and To decrease soft tissue restriction Manual Therapy Techniques to Include: Mobilization and Soft tissue mobilization For the Purpose of:: To decrease pain, To decrease swelling/inflammation, To increase ROM, To improve nutrient delivery to tissue and To increase oxygenation perfusion Cryotherapy (ice pack, ice massage): Yes Vasopneumatic device: Yes For the Purpose of:: To decrease pain, To decrease swelling/inflammation, To increase ROM, To improve nutrient delivery to tissue and To increase oxygenation perfusion Re-Evaluation Ending Re-evaluation ending: Please do not hesitate to contact me at [phone] by phone or if you have questions or concerns regarding this new plan of care! Sincerely, Anoop Soto DPT
--- NOTE | 2025-03-14 09:29 | HP.PTDCSUM ---
Discharge Summary D/C summary: It has been my pleasure to treat ISMAEL LARSON referred by Dr. Shan Jaeger DO, with the diagnosis of L TKA, DOS: 01/15/25 for a total of 18 visit(s). Discharge Date: 03/14/25 Please see the following information for a summary of their discharge status. Subjective Subjective: Pt. reports overall doing better. Pt. does have some soreness. I did talk to him about being more sore since he is so active. Pt. reports being 75% better overall and is curious about going back to work. He reports his only real issue is with soreness after being active then prolonged stationary periods. Pain L knee: Pain Intensity (Out of 10): 1 Overall Improvement % Improvement: 75 Objective Objective/Function: AROM: 0-0-119deg. PROM 0-0-122deg. MMT: RLE: knee ext 55.6#, flex 39.1# LLE: knee: ext 39.7#, flex 37.6# GAIT: normal pattern. STAIRS: normal reciprocal pattern. Pt. is overall doing great. He does reports some soreness and stiff after being active then sitting for longer periods of time. I talked to him about being active, but not to over do it. Pt. consents. Pt. is planning on following up with physician to determine process about going back to work. Pt. will be DC from PT at this point in time. He will continue to be active with biking and mobility, light strengthening at local gym. Goals Goal 1:: LTG: Pt. to be I with HEP. Goal Progress: Goal Met Goal 2:: STG: pt. to have increased L knee ROM to 0-0-120deg. Goal Progress: Goal Met Goal 3:: LTG: Pt. to have increased L LE strength symmetrical to R side. Goal Progress: Goal Met Goal 4:: LTG: Pt. to ambulate with out AD with normal gait pattern. Goal Progress: Goal Met Goal 5:: LTG: Pt. to complete TUG with time less than 10seconds. Goal Progress: Goal Met Goal 6:: LTG: Pt. to complete 30sec sit to stand rep test with at least 15 reps. Goal Progress: Goal Met Plan Plan: Pt. will be DC from PT at this point in time. D/C Information d/c sentence: If there are questions or concerns regarding this patient's physical therapy, please feel free to call me at [phone]. Thank you for the referral of this patient. Sincerely, Anoop Soto, HAYDERT Balance/Gait/Functional tests Balance/Special Test Scores Lower Extremity Functional Score: 60 TUG Test Time Seconds: 7.77 Tug Test: <10 sec.=free mobile 30 Second Chair Rise Test Seconds: 15 6 Minute Walk Test: 1654 feet no AD Improvement % Improvement: 75
== END 2025-03-14 19:00 | disposition home or self-care (01) ==
LOC: PT 09:00
PROVIDERS: PCP Physician Assistant; Referring Provider Orthopaedic Surgery; Visit Provider Orthopaedic Surgery
DX: M17.12 Unilateral primary osteoarthritis, left knee (principal); Z96.652 Presence of left artificial knee joint
CPT/HCPCS: 97016; 97110; 97140; 97161; 97530